=== PATIENT | male | born 1945 | race Caucasian/White ===

== ENCOUNTER 2016-09-15 07:59 | Inpatient (IN) ==
--- NOTE | 2016-09-15 08:07 | Emergency Department Note ---
Disposition Clinical Impression: Hypoxia, Weakness generalized Disposition: Admitted As Inpatient Condition: Undetermined Referrals: NO,PCP [Non-Partnered Physician] - Forms: ED Satisfaction Letter Time of Disposition: 10:51 SOB HPI - General Chief Complaint: ED Shortness of Breath/Dyspnea Stated Complaint: ABHI Time Seen by Provider: 09/15/16 08:01 Source: EMS Mode of arrival: EMS Limitations: altered mental status (baseline ) Nursing Notes Reviewed: Yes Vital Signs Reviewed: Yes - History of Present Illness 71-year-old male with history of diabetes, hypertension, bipolar disorder with baseline altered mental status arrives to [facility] emergency department from shelter with concern for low oxygen level. EMS arrived and noted that his O2 saturation was 90% on room air. The patient is unable to communicate with any complaints. He is well-appearing but arrives to the emergency department with an O2 sat of 91% on room air. The patient does have a mild swelling in his right lower extremity area and his lungs are clear to auscultation. The patient does have a colostomy that is on the left side of his abdomen. Nontender abdomen on palpation. Patient was recently discharged from the hospital one day ago for concern for elevated lactic acid and anemia. Unknown source of elevated lactic acid. Pt Subjective Complaint: shortness of breath Onset (ago): unknown Severity: mild Consistency/Duration: constant Improves with: oxygen Worsens with: nothing Known history of: diabetes Associated symptoms: Reports: denies other symptoms Treatment prior to arrival: oxygen Cough present: No Sputum production: No - Related Data Home Medications Medication Instructions Recorded Confirmed Acetaminophen [Tylenol] 650 mg PO Q4HR PRN 04/03/15 09/13/16 Alendronate Sodium [Fosamax] 70 mg PO TH 04/03/15 09/13/16 Atorvastatin [Lipitor] 40 mg PO HS 04/03/15 09/13/16 Calcium Carbonate/Vitamin D2 1 each PO DAILY 04/03/15 09/13/16 [Oyster Shell Calcium-Vit D Tab] Cholecalciferol (Vitamin D3) 1,000 unit PO DAILY 04/03/15 09/13/16 [Vitamin D3] Docusate Sodium [Colace] 200 mg PO BID 04/03/15 09/13/16 FLUoxetine HCl [Prozac] 20 mg PO DAILY 04/03/15 09/13/16 Folic Acid 1 mg PO DAILY 04/03/15 09/13/16 Furosemide [Lasix] 40 mg PO DAILY 04/03/15 09/13/16 Gemfibrozil [Lopid] 600 mg PO BID 04/03/15 09/13/16 Lisinopril [Zestril] 10 mg PO DAILY 04/03/15 09/13/16 Magnesium Hydroxide [Milk of 30 ml PO DAILY PRN 04/03/15 09/13/16 Magnesia] Metformin HCl [Glucophage] 1,000 mg PO BID 04/03/15 09/13/16 Polyethylene Glycol 3350 [MiraLAX 15 gm PO BID PRN #0 04/03/15 09/13/16 bowel prep] carBAMazepine [Tegretol] 400 mg PO HS 04/03/15 09/13/16 clonazePAM [Klonopin] 0.5 mg PO BID 04/03/15 09/13/16 Albuterol Neb [Proventil Neb] 2.5 mg IH Q4H PRN 09/22/15 09/13/16 Mylanta 30 ml PO Q4H PRN 09/22/15 09/13/16 [place]-3 Fatty Acids/Fish Oil 1 each PO BID 09/22/15 09/13/16 [[place]-3 Fish Oil 1,000 mg Sfgl] carBAMazepine [Tegretol] 200 mg PO QAM 09/22/15 09/13/16 Cariprazine HCl [Vraylar] 1.5 mg PO 09/13/16 Previous Rx's Medication Instructions Recorded Aspirin 81 mg PO Q48H #30 tab.chew 09/14/16 Allergies Allergy/AdvReac Type Severity Reaction Status Date / Time No Known Allergies Allergy Verified 09/22/15 09:12 Limitations: ROS unobtainable due to patients medical condition Past Medical History - Past Medical History Attestation: Yes The following information was validated with the patient. Source: old records reviewed Medical history: Reports: asthma, coronary artery disease, diabetes, myocardial infarction, osteoporosis, other Surgical history: Reports: colostomy Psychiatric history: Reports: anxiety, bipolar, other - Social History Smoking Status: Never smoker Smokeless Tobacco Status: No Alcohol use: Reports: none Drug use: Reports: none Physical Exam - General Limitations: no limitations, altered mental status (Baseline) General appearance: alert, in no apparent distress - Head Head exam: atraumatic, normocephalic, normal inspection - Neck Neck exam: Present: normal inspection, full ROM, trachea midline - Chest Chest inspection: Present: normal inspection, symmetric chest wall rise - Respiratory Respiratory exam: Present: normal lung sounds bilaterally - Cardiovascular Cardiovascular exam: Present: regular rate, normal rhythm, normal heart sounds - Abdominal Exam Abdominal exam: Present: soft, Non-Tender, other (Colostomy). Absent: tenderness, distention, guarding, rebound, rigidity - Extremities Exam Extremities exam: Present: full ROM, other (Mild swelling of RLE with change in skin color over calf) - Neurological Exam Neurological exam: Present: alert - Skin Skin exam: Present: warm, dry, intact, normal color Course - Reevaluation(s) Reevaluation #1: Patient's Doppler was negative for DVT and right lower extremity. Patient d- dimer was elevated. Given elevated d-dimer combined with hypoxia, we will perform CTA of the patient's chest. Patient's labs are otherwise unremarkable. Remains on oxygen with an O2 saturation of 96% on 2 L nasal cannula. He is resting comfortably and is otherwise acting at baseline. Time: 09:33 Vital Signs Temperature 98.2 F 09/15/16 08:03 Pulse Rate 55 09/15/16 08:03 Respiratory Rate 20 09/15/16 08:03 Blood Pressure 133/84 09/15/16 08:03 O2 Sat by Pulse Oximetry 92 09/15/16 08:03 Temperature 98.2 F 09/15/16 08:03 Pulse Rate 53 09/15/16 10:08 Respiratory Rate 20 09/15/16 10:08 Blood Pressure 140/80 09/15/16 10:08 O2 Sat by Pulse Oximetry 94 09/15/16 10:08 Oxygen Delivery Oxygen Delivery Nasal Cannula Shortness of Breath/Dyspnea - [facility] Narrative Medical decision making narrative: I examined this patient and my medical decision-making was reviewed with the Resident Physician. I agree with the documented findings, disposition and treatment plan as described except to the extent set forth below. Patient seen and evaluated on arrival with EMS and Dr. Ramos, I agree with his evaluation and management plan, supervised the care of the patient's stay. Patient was just discharged from the hospital yesterday. He had low saturations and was more tired than usual per half-way staff. He himself cannot give history due to his baseline mental status. He does have low saturations. Looks a he has had some anemia. And he had a workup appears to be for sepsis. Repeat labs and reassess. He may need readmission. He is not toxic at this point and is interactive but is unable to give us any history. According to medics and the charting this is his baseline. Chest X-Ray 09/15/16 08:01 IMPRESSION: No acute cardiopulmonary disease. D/ / Yuan Burnett MD / Yuan Burnett MD Interpreting Provider: Yuan Burnett MD 0856 hrs. Patient's d-dimer is elevated, his creatinine is normal, organomegaly and get a CTA of his chest. We will give him fluids. 1040: Patient's CT scan of the chest demonstrates no PE, but there is some right lower lobe effusion and atelectasis. Given the patient's hypoxia, With his malaise and his difficulty to assess at his baseline, we will admit the patient to the hospital for further workup and care. BNP was added to trend. No other obvious abnormalities noted. Patient is resting comfortably on 2 L nasal cannula with an O2 saturation of 96%. Accepted by Dr. Love. 1100 hrs., patient's critical care time excluding separately billable procedures is 30 minutes. - Medical Records Medical records reviewed: Yes I reviewed the patient's medical records. - Lab Data Lab results reviewed: Yes I reviewed the patient's lab results. Result diagrams: 09/15/16 08:17 09/15/16 08:17 Lab Results 09/15/16 09/15/16 09/15/16 Range/Units 08:17 08:17 08:17 WBC 7.7 (4.3-11.1) K/mcL RBC 4.22 (4.19-5.50) M/mcL Hgb 12.7 L (12.9-16.9) g/dL Hct 37.7 (37.5-50.1) % MCV 89.3 (83.0-100.0) fL MCH 30.1 (28.0-33.3) pg MCHC 33.7 (31.6-35.5) g/dL RDW 14.6 H (11.5-14.5) % Plt Count 154 (140-400) K/mcL MPV 10.0 (9.4-12.4) fL Immature Gran % 0.6 (0-4) % Seg Neutrophils % 67.8 % Lymphocytes % 21.2 % Monocytes % 9.5 % Eosinophils % 0.5 % Basophils % 0.4 % Neutrophils # 5.2 (1.6-8.9) K/mcL Lymphocytes # 1.6 (0.6-4.6) K/mcL Monocytes # 0.7 (0.0-1.3) K/mcL Eosinophils # 0.0 (0.0-0.6) K/mcL Basophils # 0.0 (0.0-0.2) K/mcL D-Dimer 1031 H (0-500) ng/mLFEU Sodium 132 L (136-145) mEq/L Potassium 4.7 H (3.5-4.5) mEq/L Chloride 99 (98-109) mEq/L Carbon Dioxide 26 (19-29) mEq/L BUN 20 (8-26) mg/dL Creatinine 0.94 (0.72-1.25) mg/dL Est GFR ( Amer) > 60 (> 60) Est GFR (Non-Af Amer) > 60 (> 60) BUN/Creatinine Ratio 21 (6-26) Glucose 128 H (70-99) mg/dL Calculated Osmolality 278 L (280-300) Lactic Acid (0.5-2.2) mmol/L Calcium 9.2 (8.6-10.8) mg/dL Total Bilirubin 0.4 (0.2-1.2) mg/dL AST 22 (5-34) Units/L ALT 21 (0-55) Units/L Alkaline Phosphatase 46 (38-126) Units/L Troponin I (0-0.03) ng/mL Serum Total Protein 7.5 (6.0-8.3) g/dL Albumin 3.8 (3.5-5.0) g/dL Globulin 3.7 H (2.4-3.5) g/dL Albumin/Globulin Ratio 1.0 L (1.1-2.2) 09/15/16 09/15/16 Range/Units 08:17 08:17 WBC (4.3-11.1) K/mcL RBC (4.19-5.50) M/mcL Hgb (12.9-16.9) g/dL Hct (37.5-50.1) % MCV (83.0-100.0) fL MCH (28.0-33.3) pg MCHC (31.6-35.5) g/dL RDW (11.5-14.5) % Plt Count (140-400) K/mcL MPV (9.4-12.4) fL Immature Gran % (0-4) % Seg Neutrophils % % Lymphocytes % % Monocytes % % Eosinophils % % Basophils % % Neutrophils # (1.6-8.9) K/mcL Lymphocytes # (0.6-4.6) K/mcL Monocytes # (0.0-1.3) K/mcL Eosinophils # (0.0-0.6) K/mcL Basophils # (0.0-0.2) K/mcL D-Dimer (0-500) ng/mLFEU Sodium (136-145) mEq/L Potassium (3.5-4.5) mEq/L Chloride (98-109) mEq/L Carbon Dioxide (19-29) mEq/L BUN (8-26) mg/dL Creatinine (0.72-1.25) mg/dL Est GFR ( Amer) (> 60) Est GFR (Non-Af Amer) (> 60) BUN/Creatinine Ratio (6-26) Glucose (70-99) mg/dL Calculated Osmolality (280-300) Lactic Acid 2.0 (0.5-2.2) mmol/L Calcium (8.6-10.8) mg/dL Total Bilirubin (0.2-1.2) mg/dL AST (5-34) Units/L ALT (0-55) Units/L Alkaline Phosphatase (38-126) Units/L Troponin I 0.00 (0-0.03) ng/mL Serum Total Protein (6.0-8.3) g/dL Albumin (3.5-5.0) g/dL Globulin (2.4-3.5) g/dL Albumin/Globulin Ratio (1.1-2.2) - Radiology Data Radiology results reviewed: Yes I reviewed the patient's radiology results. - EKG Data EKG attestation: Yes I reviewed and interpreted this EKG. EKG results narrative: Heart rate 52 bpm. ND interval 199 ms. QTc 42 ms. Normal axis. Sinus bradycardia. No ST elevation or ST depression noted. EKG otherwise similar in appearance to EKG from 09/13/2016. No acute changes noted.
[2016-09-15 08:36] LABS: Basophils % 0.4 %; Eosinophils % 0.5 %; Hematocrit 37.7 % (37.5-50.1); Hemoglobin 12.7 g/dL (12.9-16.9); Immature Granulocytes % 0.6 % (0-4); Lymphocytes # 1.6 K/mcL (0.6-4.6); Lymphocytes % 21.2 %; Mean Corpuscular HGB Conc 33.7 g/dL (31.6-35.5); Mean Corpuscular Hemoglobin 30.1 pg (28.0-33.3); Mean Corpuscular Volume 89.3 fL (83.0-100.0); Monocytes # 0.7 K/mcL (0.0-1.3); Monocytes % 9.5 %; Neutrophils # 5.2 K/mcL (1.6-8.9); Platelet Count 154 K/mcL (140-400); Red Blood Count 4.22 M/mcL (4.19-5.50); Red Cell Distribution Width 14.6 % (11.5-14.5); Segmented Neutrophils % 67.8 %
[2016-09-15 08:37] LABS: Alanine Aminotransferase 21 Units/L (0-55); Albumin 3.8 g/dL (3.5-5.0); Alkaline Phosphatase 46 Units/L (38-126); Aspartate Amino Transferase 22 Units/L (5-34); BUN/Creatinine Ratio 21 (6-26); Bilirubin,Total 0.4 mg/dL (0.2-1.2); Blood Urea Nitrogen 20 mg/dL (8-26); Calcium 9.2 mg/dL (8.6-10.8); Carbon Dioxide 26 mEq/L (19-29); Chloride 99 mEq/L (98-109); Globulin 3.7 g/dL (2.4-3.5); Glucose 128 mg/dL (70-99); Osmolality,Calculated 278 (280-300); Potassium 4.7 mEq/L (3.5-4.5); Sodium 132 mEq/L (136-145); Total Protein 7.5 g/dL (6.0-8.3); eGFR For African Americans > 60 (> 60); eGFR For Non-African Americans > 60 (> 60)
[2016-09-15] MEDS ORDERED: 0.9 % Sodium Chloride 1,000 ML IVC ONE (09:01)
[2016-09-15] MEDS ORDERED: Naloxone 0.4 MG/ML INJ IVP PRN (11:22)
--- NOTE | 2016-09-15 11:24 | Event Note ---
Date of Encounter: 09/15/16 Time of Encounter: 11:22 1. Hypoxia is likely secondary to acute diastolic CHF exacerbation with evidence of right small pleural effusion *Lasix 40 mg IV twice a day, strict I's and O's, daily weight Check echocardiogram 2. Diabetes type 2 not insulin-dependent, continue with insulin sliding scale 3. Bipolar disorder 4. Hyperlipidemia The patient will be admitted for observation. Omeprazole for GI prophylaxis and subcutaneous heparin for DVT prophylaxis. Full code. Time spent on this admission 40 minutes. H&P to be written by MELI Braden High risk due to hypoxia
[2016-09-15] MEDS ORDERED: Furosemide 40 MG/4 ML VIAL IVP ONE (11:26)
[2016-09-15] MEDS ORDERED: *HR* Dextrose 50 % in Water (Syg) 50 ML SYRINGE IVP PRN (11:27)
[2016-09-15] MEDS ORDERED: D5% in Water 1,000 ML IVC PRN (11:27)
[2016-09-15] MEDS ORDERED: Dextrose Gel 15 GM PO PRN ×2 (11:27)
[2016-09-15] MEDS ORDERED: Albuterol 2.5 MG/3 ML NEBULIZER IH PRN (11:29)
--- NOTE | 2016-09-15 11:36 | Internal Med History&Physical ---
<Miguelina Braden - Last Filed: 09/15/16 12:01> Date of Encounter: 09/15/16 Time of Encounter: 11:33 Assessment and Plan (1) Acute and chronic respiratory failure ([id number]) Current visit: Yes Status: Acute 1 patient SPO2 90 91% on room air, hypoxia most likely related to acute diastolic heart failure. He does have a right small pleural effusion on CTA 2 continue with oxygen titrated to maintain SPO2 greater than 92% 3 bronchodilators as needed 4 we will diurese the patient Qualifiers: Respiratory failure complication: hypoxia Qualified Code(s): J96.21 - Acute and chronic respiratory failure with hypoxia (2) CHF (congestive heart failure) Current visit: Yes Status: Acute 1 patient with history of diastolic failure with last echo dated 03/2015 showed EF 55% with moderate diastolic dysfunction. He has hypoxic CT reveals a right lower lobe pleural effusion he is presently on 40 mg Lasix daily. We will increase Lasix dosage to 40 mg IV twice a day 2 obtain cardiac echo 3 monitor intake and output daily weights 4. Low sodium diet 5 continuous cardiac monitoring Qualifiers: Congestive heart failure type: diastolic Congestive heart failure chronicity: acute on chronic Qualified Code(s): I50.33 - Acute on chronic diastolic (congestive) heart failure (3) Diabetes mellitus Current visit: No Status: Chronic 1 patient is presently on metformin orally. 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 Lubin is a 71 year old male past medical history of bipolar anxiety OCD history of CO coronary artery disease hypertension diverticulitis with resection of colon colostomy diabetes type 2. Apparently the patient was admitted on 09/13/16 at [facility] due to bradycardia and elevated lactate. Patient's Toprol was held his bradycardia improved as well as his lactate and he was discharged yesterday. Patient resides in a group called staff were concerned for low oxygen levels and he was sent to the ER for evaluation. Patient is cognitively disabled and is unable to communicate any complaints. According to ER records patient did not appear to be in any respiratory distress on arrival his O2 sats ration was 91% on room air he did have some mild lower extremity swelling in his right leg. Lab work was completed which did not show any leukocytosis his lactate was 2 per hour was 0 d-dimer was 1031 chest x-ray was clear. CTA was completed which did reveal trace right pleural effusion with dependent atelectasis in his right lower lobe. Patient was admitted for further workup and evaluation. Presently patient is not appear to be in any respiratory distress difficult to assess due to cognition. His lung sounds are clear he does have a moist nonproductive cough. Heart sounds are regular S1-S2 with no rubs, discussed murmurs noted. He does have some slight pedal edema to his lower extremities abdomen is soft nontender he does have a left colostomy which stoma is beefy red intact. Ba patient is removing his oxygen sats dropped down to 86 on room air. Back on 2 L oxygen 94% on room air. Breast vitals are stable. I reviewed this case with Dr. Love who agrees with plan. Past Med Surg Social Fam HX - Past Medical History Medical history: asthma, coronary artery disease, diabetes, myocardial infarction, osteoporosis, other Psychiatric history: anxiety, bipolar, other - Past Surgical History Surgical History: colostomy - Social History Smoking Status: Never smoker Smokeless Tobacco Status: No Alcohol use: none Drug use: none - Additional Family History Additional family history: Unable to review due to patient's cognition level Internal Medicine - H&P: Meds Acetaminophen [Tylenol] 650 mg PO Q4HR PRN 04/03/15 [History] Alendronate Sodium [Fosamax] 70 mg PO TH 04/03/15 [History] Atorvastatin [Lipitor] 40 mg PO HS 04/03/15 [History] Calcium Carbonate/Vitamin D2 [[place] Calcium-Vit D Tab] 1 tab PO DAILY 02/04 [History] Cholecalciferol (Vitamin D3) [Vitamin D3] 1,000 unit PO DAILY 04/03/15 [History] Docusate Sodium [Colace] 200 mg PO BID 04/03/15 [History] FLUoxetine HCl [Prozac] 20 mg PO DAILY 04/03/15 [History] Folic Acid 1 mg PO DAILY 04/03/15 [History] Furosemide [Lasix] 40 mg PO DAILY 04/03/15 [History] Gemfibrozil [Lopid] 600 mg PO BID 04/03/15 [History] Lisinopril [Zestril] 10 mg PO DAILY 04/03/15 [History] Magnesium Hydroxide [Milk of Magnesia] 30 ml PO DAILY PRN 04/03/15 [History] Metformin HCl [Glucophage] 1,000 mg PO BID 04/03/15 [History] Polyethylene Glycol 3350 [MiraLAX bowel prep] 15 gm PO BID PRN #0 04/03/15 [ History] carBAMazepine [Tegretol] 400 mg PO HS 04/03/15 [History] clonazePAM [Klonopin] 0.5 mg PO BID 04/03/15 [History] Albuterol Neb [Proventil Neb] 2.5 mg IH Q4H PRN 09/22/15 [History] Mag Hydrox/Al Hydrox/Simeth [Adv Antacid-[place] Liquid] 30 ml PO Q4H PRN #0 [History] [place]-3 Fatty Acids/Fish Oil [[place]-3 Fish Oil 1,000 mg Sfgl] 1,000 mg PO BID [History] carBAMazepine [Tegretol] 200 mg PO QAM 09/22/15 [History] Cariprazine HCl [Vraylar] 1.5 mg PO HS 09/13/16 [History] Aspirin 81 mg PO DAILY 09/15/16 [History] Ibuprofen [Motrin] 400 mg PO Q4HR PRN 09/15/16 [History] Loperamide [Imodium] 4 mg PO AD PRN 09/15/16 [History] Metoprolol XL (24 HR) Succ [Toprol XL] 25 mg PO DAILY 09/15/16 [History] Allergies No Known Allergies Allergy (Verified 09/22/15 09:12) ROS unobtainable: due to mental status All Systems PM: A 10-system review of systems was performed and is negative for pertinent findings except as documented above in the HPI. - Constitutional Vitals: Temp Pulse Resp BP Pulse Ox 98.2 F 52 20 138/87 93 09/15/16 08:03 09/15/16 11:13 09/15/16 11:22 09/15/16 11:22 09/15/16 11:13 General appearance: Present: cooperative - Head Head exam: Present: atraumatic, normocephalic - Eye Eye exam: Present: PERRL, conjuntiva pink, sclera anicteric Pupils: Present: PERRL - Neck Neck exam general surgery: Present: supple, trachea midline. Absent: lymphadenopathy - Respiratory Respiratory exam: Present: CTAB. Absent: accessory muscle use, rales, rhonchi, wheezes - Cardiovascular Cardiovascular exam: Present: RRR, +S1, +S2. Absent: diastolic murmur, gallop, rubs, systolic murmur - GI/Abdominal GI/Abdominal exam: Present: normal bowel sounds, soft, no peritoneal signs. Absent: distended, tenderness Additional comments: Colostomy intact - Extremities Exam Extremities exam: Present: pedal edema, warm, radial pulses palpable and symetrical. Absent: calf tenderness, cyanotic - Neurological Exam Neurological exam: Absent: pronater drift, facial droop, speech deficit Additional comments: Unable to complete neuro exam due to limited cognition unable to follow commands - Skin Skin exam: Present: dry, intact Internal Med - H&P Results - Labs CBC & Chem 7: 09/15/16 08:17 09/15/16 08:17 - EKG Data EKG shows normal: sinus rhythm Rate: bradycardia - EKG Data When compared to previous EKG: there is no significant change - Diagnostic Studies Other Images Additional comments: Chest X-Ray 09/15/16 08:01 IMPRESSION: No acute cardiopulmonary disease. D/ / Yuan Burnett MD / Yuan Burnett MD Interpreting Provider: Yuan Burnett MD Chest CTA 09/15/16 09:01 IMPRESSION: 1. No evidence of pulmonary embolus. 2. Trace right pleural effusion with dependent atelectasis of the right lower lobe. 3. Mild cardiomegaly. 4. Evidence of prior granulomatous disease. D/ 09/15/2016 10:32:24 Mario Suazo MD / Sapna Villatoro Interpreting Provider: Mario Suazo MD <[email or web address] philippe - Last Filed: 09/15/16 12:06> Date of Encounter: 09/15/16 Internal Medicine - H&P: HPI History of present illness: Mr. Lubin is a 71 year old male All Systems PM: A 10-system review of systems was performed and is negative for pertinent findings except as documented above in the HPI. - Constitutional Vitals: Temp Pulse Resp BP Pulse Ox 97.8 F 55 17 180/86 98 09/15/16 11:51 09/15/16 11:51 09/15/16 11:51 09/15/16 11:51 09/15/16 11:51 Internal Med - H&P Results - Labs CBC & Chem 7: 09/15/16 08:17 09/15/16 08:17 - Attending Attestation 1. Hypoxia is likely secondary to acute diastolic CHF exacerbation with evidence of right small pleural effusion *Lasix 40 mg IV twice a day, strict I's and O's, daily weight Check echocardiogram 2. Diabetes type 2 not insulin-dependent, continue with insulin sliding scale 3. Bipolar disorder 4. Hyperlipidemia The patient will be admitted for observation. Omeprazole for GI prophylaxis and subcutaneous heparin for DVT prophylaxis. Full code. Time spent on this admission 40 minutes. H&P to be written by AUTOMOTIVE SERVICE CONSULTANT Miguelina Braden High risk due to hypoxia For this encounter, I have reviewed the AUTOMOTIVE SERVICE CONSULTANT or PA documentation, treatment plan, and medical decision making; and I have had face to face time with this patient.
[2016-09-15] MEDS ORDERED: Acetaminophen 325 MG TABLET PO PRN (12:16)
[2016-09-15] MEDS: Insulin LISPRO 300 UNITS/3 ML VIAL SQ SCH ×3 (13:03→22:50)
--- NOTE | 2016-09-15 14:43 | Electrocardiograph Report ---
[address] [address] Test Date: 2016-09-15 Pat Name: Gaurav Lubin Department: 103 Room: 3B Gender: M Multimedia Coordinator: NADIA : 1945 Requested By: Jl Staley Order Number: [id number] Reading MD: Jimi Calix MD Measurements Intervals [place] Rate: 52 P: 23 NH: 199 QRS: -22 QRSD: 101 T: -6 QT: 421 QTc: 402 Interpretive Statements SINUS BRADYCARDIA WITH MARKED SINUS ARRHYTHMIA BORDERLINE LEFT AXIS DEVIATION INCOMPLETE RIGHT BUNDLE BRANCH BLOCK BASELINE ARTIFACT Electronically Signed On 09-15-2016 14:42:21 EDT by Jimi Calix MD
--- NOTE | 2016-09-15 15:06 | Venous Imaging Report ---
LE Venous Duplex Patient Name:Gaurav Lubin Order Number:[id number] Procedure Date:09/15/2016 Date:1945ge:71 yrs Gender:Male Location:[facility] ED Room #: ER 21 Study Abroad Advisor:Agnes Brown RDCS, RVT Referring MD:Jl Staley DO cable splicing technician:Edelmira Brennan MD Reading MD:Ramsey Epstein MD , FACS Primary Indications:Edema Secondary Indications: Risk Factors Yes/No Anticoagulants No Hx of DVT Unknown Hx of Chemotherapy Unknown Recent Surgery No Impressions: Right lower extremity: normal superficial and deep exam. Left lower extremity: normal contralateral exam. Recommendations: After imaging the patient returned to their room. Test completed on 09/15/2016 at 9:08:34 am. Critical findings reported to Dr. Staley by phone at 9:30:49 am on 09/15/2016 by Agnes Brown RDCS, RVT. Lower Extremity Venous Duplex Side Vein Compress Spontaneous Flow Augment Diameter (cm) Depth (cm) Right Distal Iliac Normal Yes Phasic Yes Right Common Femoral Normal Yes Phasic Yes Right Superficial Femoral Normal Yes Phasic Yes Right Popliteal Normal Yes Phasic Yes Right Posterior Tibial Normal Yes Phasic Yes Right Peroneal Normal Yes Phasic Yes Right Great Saphenous Normal Yes Phasic Yes Right Lesser Saphenous Normal Yes Phasic Yes Left Common Femoral Normal Yes Phasic Yes Updated by Ramsey Epstein MD, FACS on 09/15/2016 3:02:48 PM Ramsey Epstein MD electronically signed on 09/15/2016 3:03:05 PM with status of Final
[2016-09-15] MEDS: carBAMazepine 200 MG TABLET PO SCH (20:15)
[2016-09-15] MEDS: clonazePAM 0.5 MG TABLET PO SCH (20:16)
[2016-09-15] MEDS: (Cariprazine Hcl [Vraylar] 1.5 MG) PO SCH (20:23)
[2016-09-15] MEDS: OMEGA PO SCH (20:23)
[2016-09-15] MEDS: FATTY ACIDS PO SCH (20:23)
[2016-09-15] MEDS: FISH OIL PO SCH (20:23)
[2016-09-16] MEDS: *HR* Enoxaparin 40 MG/0.4 ML SYRINGE SQ SCH (05:48)
[2016-09-16 06:51] LABS: Basophils % 0.5 %; Eosinophils # 0.1 K/mcL (0.0-0.6); Eosinophils % 0.8 %; Hematocrit 35.9 % (37.5-50.1); Hemoglobin 12.2 g/dL (12.9-16.9); Immature Granulocytes % 0.7 % (0-4); Lymphocytes # 2.2 K/mcL (0.6-4.6); Lymphocytes % 26.4 %; Mean Corpuscular Hemoglobin 30.3 pg (28.0-33.3); Mean Corpuscular Volume 89.1 fL (83.0-100.0); Mean Platelet Volume 10.2 fL (9.4-12.4); Monocytes # 1.1 K/mcL (0.0-1.3); Monocytes % 12.7 %; Neutrophils # 4.9 K/mcL (1.6-8.9); Platelet Count 139 K/mcL (140-400); Red Blood Count 4.03 M/mcL (4.19-5.50); Red Cell Distribution Width 14.6 % (11.5-14.5); Segmented Neutrophils % 58.9 %
[2016-09-16 07:02] LABS: BUN/Creatinine Ratio 24 (6-26); Blood Urea Nitrogen 22 mg/dL (8-26); Calcium 9.1 mg/dL (8.6-10.8); Carbon Dioxide 26 mEq/L (19-29); Chloride 100 mEq/L (98-109); Glucose 115 mg/dL (70-99); Magnesium 2.4 mg/dL (1.6-2.6); Osmolality,Calculated 282 (280-300); Potassium 4.3 mEq/L (3.5-4.5); Sodium 134 mEq/L (136-145); eGFR For African Americans > 60 (> 60); eGFR For Non-African Americans > 60 (> 60)
[2016-09-16] MEDS: Folic Acid 1 MG TABLET PO SCH (08:11)
[2016-09-16] MEDS: Cholecalciferol (D-3) 1,000 UNIT TABLET PO SCH (08:11)
[2016-09-16] MEDS: carBAMazepine 200 MG TABLET PO SCH ×2 (08:11→22:14)
[2016-09-16] MEDS: clonazePAM 0.5 MG TABLET PO SCH ×2 (08:11→22:11)
[2016-09-16] MEDS: FISH OIL PO SCH ×2 (08:12→22:15)
[2016-09-16] MEDS: OMEGA PO SCH ×2 (08:12→22:15)
[2016-09-16] MEDS: FATTY ACIDS PO SCH ×2 (08:12→22:15)
[2016-09-16] MEDS: FLUoxetine 20 MG CAPSULE PO SCH (08:12)
[2016-09-16] MEDS: Aspirin 81 MG TAB.CHEW PO SCH (08:12)
[2016-09-16] MEDS: Insulin LISPRO 300 UNITS/3 ML VIAL SQ SCH ×4 (08:12→22:17)
--- NOTE | 2016-09-16 11:59 | Internal Med Progress Note ---
Date of Encounter: 09/16/16 Time of Encounter: 09:10 - Assessment and plan (1) Cognitive disorder Current Visit: Yes Status: Chronic Assessment and plan: Fall precautions Verbal but incomprehensible Continue home meds (2) CHF (congestive heart failure) Current Visit: Yes Status: Acute Assessment and plan: Acute on chronic heart failure with preserved EF, with evidence of new small R pleural effusion Continue lasix IV Strict I/O Daily weights Monitor renal function Qualifiers: Congestive heart failure type: diastolic Congestive heart failure chronicity: acute on chronic Qualified Code(s): I50.33 - Acute on chronic diastolic (congestive) heart failure (3) Acute and chronic respiratory failure ([id number]) Current Visit: Yes Status: Acute Assessment and plan: Continue O2 May need requalification prior to discharge Qualifiers: Respiratory failure complication: hypoxia Qualified Code(s): J96.21 - Acute and chronic respiratory failure with hypoxia (4) Diabetes mellitus Current Visit: Yes Status: Chronic Assessment and plan: A1C 5.8% 08/2016 Controlled Continue current insulin regimen ADA diet FS ACHS Qualifiers: Diabetes mellitus type: type 2 Diabetes mellitus complication status: without complication Diabetes mellitus intermediate manager insulin use: without intermediate manager use Qualified Code(s): E11.9 - Type 2 diabetes mellitus without complications (5) DVT prophylaxis Current Visit: Yes Status: Acute Assessment and plan: LOvenox SQ (6) Bipolar 1 disorder Current Visit: No Status: Chronic Assessment and plan: Continue home meds - Subjective Interval history: Seen and evaluated at bedside Patient has CHFpEF, Chronic respiratory failure on home O2, DM, Cognitive dysfunction at baseline, bipolar disorder, s/p colostomy He is being managed for acute on chronic resp failure secondary to CHF exacerbation Patient is unable to voice a complain but he looked comfortable in the cardiac position He had received one dose of lasix at time of review Vitals are stable - Constitutional Vitals: Temp Pulse Resp BP Pulse Ox 98.3 F 70 15 148/88 91 09/16/16 11:11 09/16/16 11:11 09/16/16 11:11 09/16/16 11:11 09/16/16 11:11 General appearance: Present: cooperative, A&O X 1 - Head Head exam: Present: atraumatic, normocephalic - Eye Eye exam: Present: PERRL, conjuntiva pink, sclera anicteric Pupils: Present: PERRL - Neck Neck exam general surgery: Present: supple, trachea midline. Absent: lymphadenopathy - Respiratory Respiratory exam: Present: CTAB. Absent: accessory muscle use, rales, rhonchi, wheezes - Cardiovascular Cardiovascular exam: Present: RRR, +S1, +S2. Absent: diastolic murmur, gallop, rubs, systolic murmur - GI/Abdominal GI/Abdominal exam: Present: normal bowel sounds, soft, no peritoneal signs. Absent: distended, tenderness Additional comments: Colostomy bag filled with gas - Extremities Exam Extremities exam: Present: warm, radial pulses palpable and symetrical. Absent : calf tenderness, cyanotic, pedal edema - Neurological Exam Neurological exam: Present: alert, CN II-XII intact, no focal deficits. Absent : oriented X3, pronater drift, facial droop, speech deficit - Skin Skin exam: Present: dry, intact Internal Medicine: Result - Labs CBC & Chem 7: 09/16/16 06:24 09/16/16 06:24 Labs: Short CBC 09/16/16 Range/Units 06:24 WBC 8.3 (4.3-11.1) K/mcL Hgb 12.2 L (12.9-16.9) g/dL Hct 35.9 L (37.5-50.1) % Plt Count 139 L (140-400) K/mcL Neutrophils # 4.9 (1.6-8.9) K/mcL BMP 09/16/16 06:24 Sodium 134 L Potassium 4.3 Chloride 100 Carbon Dioxide 26 BUN 22 Creatinine 0.93 Glucose 115 H Calcium 9.1 Cardiac Enzymes 09/15/16 Range/Units 20:22 Troponin I 0.00 (0-0.03) ng/mL - ABG Interpretation ABG results: PT/INR, D-dimer D-Dimer 1031 ng/mLFEU (0-500) H 09/15/16 08:17 Consult Discharge Plan - Plan Referrals: Edelmira Brennan MD [Primary Care Provider] -
[2016-09-16] MEDS: Furosemide 40 MG TABLET PO SCH ×2 (12:37→17:36)
[2016-09-16] MEDS: (Cariprazine Hcl [Vraylar] 1.5 MG) PO SCH (22:17)
[2016-09-17 04:09] LABS: Basophils % 0.4 %; Eosinophils # 0.2 K/mcL (0.0-0.6); Eosinophils % 1.8 %; Hematocrit 38.5 % (37.5-50.1); Hemoglobin 12.8 g/dL (12.9-16.9); Immature Granulocytes % 0.6 % (0-4); Lymphocytes # 2.4 K/mcL (0.6-4.6); Mean Corpuscular HGB Conc 33.2 g/dL (31.6-35.5); Mean Corpuscular Hemoglobin 30.3 pg (28.0-33.3); Mean Platelet Volume 10.2 fL (9.4-12.4); Monocytes % 12.2 %; Neutrophils # 4.9 K/mcL (1.6-8.9); Platelet Count 153 K/mcL (140-400); Red Blood Count 4.23 M/mcL (4.19-5.50); Red Cell Distribution Width 14.8 % (11.5-14.5)
[2016-09-17 04:24] LABS: BUN/Creatinine Ratio 23 (6-26); Blood Urea Nitrogen 26 mg/dL (8-26); Calcium 8.9 mg/dL (8.6-10.8); Carbon Dioxide 27 mEq/L (19-29); Chloride 101 mEq/L (98-109); Glucose 126 mg/dL (70-99); Osmolality,Calculated 288 (280-300); Sodium 136 mEq/L (136-145); eGFR For African Americans > 60 (> 60); eGFR For Non-African Americans > 60 (> 60)
[2016-09-17] MEDS: *HR* Enoxaparin 40 MG/0.4 ML SYRINGE SQ SCH (05:58)
[2016-09-17] MEDS: Aspirin 81 MG TAB.CHEW PO SCH (08:29)
[2016-09-17] MEDS: Folic Acid 1 MG TABLET PO SCH (08:29)
[2016-09-17] MEDS: carBAMazepine 200 MG TABLET PO SCH (08:29)
[2016-09-17] MEDS: FLUoxetine 20 MG CAPSULE PO SCH (08:29)
[2016-09-17] MEDS: Furosemide 40 MG TABLET PO SCH (08:29)
[2016-09-17] MEDS: clonazePAM 0.5 MG TABLET PO SCH (08:29)
[2016-09-17] MEDS: Cholecalciferol (D-3) 1,000 UNIT TABLET PO SCH (08:29)
[2016-09-17] MEDS: FATTY ACIDS PO SCH (08:30)
[2016-09-17] MEDS: Insulin LISPRO 300 UNITS/3 ML VIAL SQ SCH ×2 (08:30→12:32)
[2016-09-17] MEDS: FISH OIL PO SCH (08:30)
[2016-09-17] MEDS: OMEGA PO SCH (08:30)
--- NOTE | 2016-09-17 12:07 | Discharge Summary ---
Date of Encounter: 09/17/16 Time of Encounter: 10:00 - Discharge Diagnosis (1) Cognitive disorder Priority: Secondary Status: Chronic (2) CHF (congestive heart failure) Priority: Primary Status: Acute Qualifiers: Congestive heart failure type: diastolic Congestive heart failure chronicity: acute on chronic Qualified Code(s): I50.33 - Acute on chronic diastolic (congestive) heart failure (3) Acute and chronic respiratory failure ([id number]) Priority: Primary Status: Acute Qualifiers: Respiratory failure complication: hypoxia Qualified Code(s): J96.21 - Acute and chronic respiratory failure with hypoxia (4) Diabetes mellitus Priority: Secondary Status: Chronic Qualifiers: Diabetes mellitus type: type 2 Diabetes mellitus complication status: without complication Diabetes mellitus intermodal customer service insulin use: without intermodal customer service use Qualified Code(s): E11.9 - Type 2 diabetes mellitus without complications (5) DVT prophylaxis Priority: Primary Status: Acute (6) Bipolar 1 disorder Priority: Secondary Status: Chronic - Discharge Medications Home Medications: Acetaminophen [Tylenol] 650 mg PO Q4HR PRN 04/03/15 [History] Alendronate Sodium [Fosamax] 70 mg PO TH 04/03/15 [History] Atorvastatin [Lipitor] 40 mg PO HS 04/03/15 [History] Calcium Carbonate/Vitamin D2 [Oyster Shell Calcium-Vit D Tab] 1 tab PO DAILY 02/04 [History] Cholecalciferol (Vitamin D3) [Vitamin D3] 1,000 unit PO DAILY 04/03/15 [History] Docusate Sodium [Colace] 200 mg PO BID 04/03/15 [History] FLUoxetine HCl [Prozac] 20 mg PO DAILY 04/03/15 [History] Folic Acid 1 mg PO DAILY 04/03/15 [History] Gemfibrozil [Lopid] 600 mg PO BID 04/03/15 [History] Lisinopril [Zestril] 10 mg PO DAILY 04/03/15 [History] Magnesium Hydroxide [Milk of Magnesia] 30 ml PO DAILY PRN 04/03/15 [History] Metformin HCl [Glucophage] 1,000 mg PO BID 04/03/15 [History] Polyethylene Glycol 3350 [MiraLAX bowel prep] 15 gm PO BID PRN #0 04/03/15 [ History] carBAMazepine [Tegretol] 400 mg PO HS 04/03/15 [History] clonazePAM [Klonopin] 0.5 mg PO BID 04/03/15 [History] Albuterol Neb [Proventil Neb] 2.5 mg IH Q4H PRN 09/22/15 [History] Mag Hydrox/Al Hydrox/Simeth [Adv Antacid-Antigas Liquid] 30 ml PO Q4H PRN #0 [History] [place]-3 Fatty Acids/Fish Oil [[place]-3 Fish Oil 1,000 mg Sfgl] 1,000 mg PO BID [History] carBAMazepine [Tegretol] 200 mg PO QAM 09/22/15 [History] Cariprazine HCl [Vraylar] 1.5 mg PO HS 09/13/16 [History] Aspirin 81 mg PO DAILY 09/15/16 [History] Loperamide [Imodium] 4 mg PO AD PRN 09/15/16 [History] Metoprolol XL (24 HR) Succ [Toprol Xl] 25 mg PO DAILY 09/15/16 [History] Albuterol Neb [Proventil Neb] 2.5 mg IH Q2H PRN inh 09/17/16 [Rx] Furosemide [Lasix] 60 mg PO DAILY #60 tab 09/17/16 [Rx] Allergies/Adverse Reactions: Allergies No Known Allergies Allergy (Verified 09/22/15 09:12) Date of admission: 09/15/16 15:20 Primary care physician: Edelmira Brennan Consults: 09/15/16 17:09 Consult to Occupational Therapy [CONS] Routine Comment: Evaluate, develop and implement POC Reason for Consult: weakness Consult to Physical Therapy [CONS] Routine Comment: Evaluate, develop and implement POC Reason for Consult: weakness Discharging clinician: Rio George Anticipated date of discharge: 09/17/16 - Patient Status Disposition: Transfer Other Condition: Fair Functional capacity at discharge: independent ambulation Overall status at discharge: patient is back to baseline - Discharge Instructions Follow Up With: Edelmira Brennan MD [Primary Care Provider] - - Diet and Activity Activity: resume usual activities as tolerated, wear oxygen at all times Diet: diabetic diet, low fat, low cholesterol, low salt diet Interval History: See below Hospital course: Mr. Lubin is a 71 year old male , He Has a past past medical history of bipolar disorder, anxiety, OCD, coronary artery disease, hypertension, status post colostomy, diabetes 2, chronic cognitive disorder. Patient was transferred to [facility] ER from his [facility] due to concern for low oxygen level. Throughout admission patient did not show any evidence of respiratory distress, however his oxygen saturation on room air has ranged between 90-91%. Patient also with evidence of mild lower extremity edema on admission, with chest CT showing no PE, he had trace right pleural effusion and dependent atelectasis. Patient remained afebrile, with no leukocytosis, he appeared not to be in any form of respiratory distress possibly due to cognition. His chest was clear to auscultation. Heart sounds S1 and S2 and no murmurs. His LE edema has resolved , DVT was ruled out He was admitted and managed for acute hypoxic respiratory failure secondary to CHF exacerbation Patient is seen and evaluated this morning at bedside in clinically stable state. He has been adequately diuretics with a negative output greater than 2 L, he has lost weight of about 3 kg since admission. Patient is stable to be discharged back to the facility, on Lasix 60 mg by mouth daily. Prior to admission patient was taking 40 mg daily. Patient was qualified for home oxygen, and he qualified based on desaturation on ambulation. Patient is stable to be discharged to the fpc once oxygen has been delivered. - Time Spent with Patient Total time spent providing and/or coordinating discharge services: Greater than 30 minutes - Constitutional Vitals: Temp Pulse Resp BP Pulse Ox 98.0 F 70 15 112/63 96 09/17/16 12:03 09/17/16 12:03 09/17/16 12:03 09/17/16 12:03 09/17/16 12:03 General appearance: Present: cooperative, A&O X 1 - Head Head exam: Present: atraumatic, normocephalic - Eye Eye exam: Present: PERRL, conjuntiva pink, sclera anicteric Pupils: Present: PERRL - Neck Neck exam general surgery: Present: supple, trachea midline. Absent: lymphadenopathy - Respiratory Respiratory exam: Present: CTAB. Absent: accessory muscle use, rales, rhonchi, wheezes - Cardiovascular Cardiovascular exam: Present: RRR, +S1, +S2. Absent: diastolic murmur, gallop, rubs, systolic murmur - GI/Abdominal GI/Abdominal exam: Present: normal bowel sounds, soft, no peritoneal signs. Absent: distended, tenderness - Extremities Exam Extremities exam: Present: warm, radial pulses palpable and symetrical. Absent : calf tenderness, cyanotic, pedal edema - Neurological Exam Neurological exam: Present: alert, CN II-XII intact, no focal deficits. Absent : pronater drift, facial droop, speech deficit - Skin Skin exam: Present: dry, intact
[2016-09-17 16:24] VITALS: BP 102/66
== END 2016-09-17 17:19 | disposition other institution (70) | DRG 291 ==
LOC: 3BNU 07:59 → EMEROO 07:59 → 3BNU 11:38
PROVIDERS: ADMIT Internal Medicine; ATTEND Nurse Practitioner Family

== ENCOUNTER 2016-09-20 07:02 | Inpatient (IN) ==
[2016-09-20] MEDS ORDERED: Ipratropium/Albuterol Neb 3 ML IH ONE (07:08)
[2016-09-20] MEDS ORDERED: methylPREDNISolone 125 MG/2 ML VIAL IVP ONE (07:08)
[2016-09-20] MEDS ORDERED: Furosemide 40 MG/4 ML VIAL IVP ONE (07:08)
--- NOTE | 2016-09-20 07:13 | Emergency Department Note ---
Disposition Clinical Impression: Hypoxia CHF (congestive heart failure) Qualifiers: Congestive heart failure type: unspecified congestive heart failure type Congestive heart failure chronicity: unspecified congestive heart failure chronicity Qualified Code(s): I50.9 - Heart failure, unspecified Pneumonia Qualifiers: Pneumonia type: due to unspecified organism Laterality: right Lung location: lower lobe of lung Qualified Code(s): J18.1 - Lobar pneumonia, unspecified organism Disposition: Admitted As Inpatient Condition: Good Forms: ED Satisfaction Letter Time of Disposition: 08:48 SOB HPI - General Chief Complaint: ED Shortness of Breath/Dyspnea Stated Complaint: ABHI Time Seen by Provider: 09/20/16 07:07 Source: EMS Mode of arrival: EMS Limitations: other Nursing Notes Reviewed: Yes Vital Signs Reviewed: Yes - History of Present Illness Patient presents emergency room from a long-term facility where he is in assisted living. Recently discharged from the hospital for shortness of breath. Patient presents here today with acute shortness of breath according to him. He also is unable to answer questions appropriately. History is from the EMS transport Pt Subjective Complaint: shortness of breath Onset (ago): [employer] Context: recent illness Severity: moderate Consistency/Duration: constant Improves with: oxygen, upright position Worsens with: lying flat, exertion Known history of: congestive heart failure Associated symptoms: Reports: denies other symptoms Treatment prior to arrival: oxygen Cough present: Yes Cough Description: Voluntary, Non-Productive Cough Frequency: Intermittent Sputum production: No Sputum Amount: Scant Sputum Color: Clear - Related Data Home oxygen amount: 2 liters Home Medications Medication Instructions Recorded Confirmed Acetaminophen [Tylenol] 650 mg PO Q4HR PRN 04/03/15 09/15/16 Alendronate Sodium [Fosamax] 70 mg PO TH 04/03/15 09/15/16 Atorvastatin [Lipitor] 40 mg PO HS 04/03/15 09/15/16 Calcium Carbonate/Vitamin D2 1 tab PO DAILY 04/03/15 09/15/16 [Oyster Shell Calcium-Vit D Tab] Cholecalciferol (Vitamin D3) 1,000 unit PO DAILY 04/03/15 09/15/16 [Vitamin D3] Docusate Sodium [Colace] 200 mg PO BID 04/03/15 09/15/16 FLUoxetine HCl [Prozac] 20 mg PO DAILY 04/03/15 09/15/16 Folic Acid 1 mg PO DAILY 04/03/15 09/15/16 Gemfibrozil [Lopid] 600 mg PO BID 04/03/15 09/15/16 Lisinopril [Zestril] 10 mg PO DAILY 04/03/15 09/15/16 Magnesium Hydroxide [Milk of 30 ml PO DAILY PRN 04/03/15 09/15/16 Magnesia] Metformin HCl [Glucophage] 1,000 mg PO BID 04/03/15 09/15/16 Polyethylene Glycol 3350 [MiraLAX 15 gm PO BID PRN #0 04/03/15 09/15/16 bowel prep] carBAMazepine [Tegretol] 400 mg PO HS 04/03/15 09/15/16 clonazePAM [Klonopin] 0.5 mg PO BID 04/03/15 09/15/16 Albuterol Neb [Proventil Neb] 2.5 mg IH Q4H PRN 09/22/15 09/15/16 Mag Hydrox/Al Hydrox/Simeth [Adv 30 ml PO Q4H PRN #0 09/22/15 09/15/16 Antacid-Antigas Liquid] [place]-3 Fatty Acids/Fish Oil 1,000 mg PO BID 09/22/15 09/15/16 [[place]-3 Fish Oil 1,000 mg Sfgl] carBAMazepine [Tegretol] 200 mg PO QAM 09/22/15 09/15/16 Cariprazine HCl [Vraylar] 1.5 mg PO HS 09/13/16 09/15/16 Aspirin 81 mg PO DAILY 09/15/16 09/15/16 Loperamide [Imodium] 4 mg PO AD PRN 09/15/16 09/15/16 Metoprolol XL (24 HR) Succ [Toprol 25 mg PO DAILY 09/15/16 09/15/16 Xl] Previous Rx's Medication Instructions Recorded Furosemide [Lasix] 60 mg PO DAILY #90 tab 09/17/16 Allergies Allergy/AdvReac Type Severity Reaction Status Date / Time No Known Allergies Allergy Verified 09/22/15 09:12 All systems ED: reviewed and negative except as stated. Review of Systems: As Per HPI Constitutional: Denies: fever, chills Cardiovascular: Reports: dyspnea on exertion, orthopnea. Denies: chest pain, palpitations Respiratory: Reports: dyspnea. Denies: cough, wheezes, hemoptysis Gastrointestinal: Denies: abdominal pain, nausea Genitourinary: Denies: dysuria, frequency Musculoskeletal: Denies: back pain, neck pain Neurological: Denies: headache, weakness Past Medical History - Past Medical History Attestation: Yes The following information was validated with the patient. Source: patient Medical history: Reports: asthma, coronary artery disease, diabetes, myocardial infarction, osteoporosis, other Surgical history: Reports: colostomy Psychiatric history: Reports: anxiety, bipolar, other - Social History Smoking Status: Never smoker Smokeless Tobacco Status: No Alcohol use: Reports: none Drug use: Reports: none Physical Exam - General Limitations: other General appearance: alert, in no apparent distress - Head Head exam: atraumatic, normocephalic, normal inspection - Neck Neck exam: Present: normal inspection, full ROM, trachea midline - Chest Chest inspection: Present: normal inspection, symmetric chest wall rise. Absent : tenderness - Respiratory Respiratory exam: Present: normal lung sounds bilaterally. Absent: respiratory distress, wheezes - Cardiovascular Cardiovascular exam: Present: regular rate, normal rhythm. Absent: bradycardia - Abdominal Exam Abdominal exam: Present: soft, Non-Tender, normal bowel sounds. Absent: tenderness, distention, guarding, rebound, rigidity, diminished bowel sounds, Rodriguez's sign, Rovsing's sign, tenderness at McBurney's Point Course Course Narrative: Patient seen and examined the time of arrival by EMS. See history of present illness. 8-year-old male presents from assisted living facility where he was complaining of shortness of breath. EMS was called at that time. He was hypoxic. He was just discharged from the hospital on a oxygen concentrator secondary to CHF exacerbation and decreased pulse ox. Patient was not wearing the oxygen arrival is laying flat on the bed and had mild increased work of breathing. On arrival here patient is slightly altered. This is according to EMS his baseline. He does have cognitive impairment secondary to chronic medical issues. He was hypoxic on 86 on normal oxygen. Patient otherwise a physical exam and appear to be in distress. His head is atraumatic. Pupils are equal round reactive to light. There is no visible signs of trauma or injury. He moves all 4 extremities and attempts to follow commands but does have repetitive speech. There is no facial asymmetry at this time his vital signs are otherwise stable except for the hypoxia. Lungs are clear heart is regular but on EKG show sinus arrhythmia. This is consistent to previous EKGs. Abdomen soft nontender nondistended no guarding no rigidity patient is a left lower quadrant ostomy bag that appears to be functioning. Patient is concerning secondary to inability to convey full medical history CT imaging of the head chest x-ray labs including EKG and troponin ordered this time. BNP first dose of IV Lasix along with oxygen to be applied at this point. BiPAP will be held initially until patient declares himself as far as intervention required. Steroids and first dose of albuterol to be given here. Disposition will most likely be admission for failed outpatient treatment secondary to patient's cognitive ability. - Reevaluation(s) Reevaluation #1: Patient found to have right-sided infiltrate and possible left atelectasis or pneumonia. Consistent with hospital-acquired pneumonia this time secondary to his recent admission and completion care. Vancomycin and Zosyn given. White count is 20.5. Steroids fluids and albuterol treatments given. CT the head is negative. Admission process to be completed at this time Time: 08:35 Reevaluation #2: Patient discussed with the on-call hospitalist Dr. Love. We reviewed the presentation symptoms recent medical evaluation and admission. No other recommendations at this time. Antibiotics medications given. Time: 08:46 Vital Signs Temperature 99.7 F H 09/20/16 07:03 Pulse Rate 74 09/20/16 07:03 Respiratory Rate 20 09/20/16 07:03 Blood Pressure 129/79 09/20/16 07:03 O2 Sat by Pulse Oximetry 85 09/20/16 07:03 Temperature 99.7 F H 09/20/16 07:03 Pulse Rate 74 09/20/16 07:03 Respiratory Rate 20 09/20/16 07:03 Blood Pressure 129/79 09/20/16 07:03 O2 Sat by Pulse Oximetry 90 09/20/16 07:09 Oxygen Delivery Oxygen Delivery Nasal Cannula Shortness of Breath/Dyspnea - MDM Narrative Medical decision making narrative: congested heart failure, fluid overload, hypoxia - Medical Records Medical records reviewed: Yes I reviewed the patient's medical records. - Lab Data Lab results reviewed: Yes I reviewed the patient's lab results. - Radiology Data Radiology results reviewed: Yes I reviewed the patient's radiology results. CT imaging of the head is negative for acute pathology. Chest x-ray consistent with new progression of pneumonia or atelectasis - EKG Data EKG attestation: Yes I reviewed and interpreted this EKG. EKG shows normal: Reports: sinus rhythm Rate: Reports: normal Rhythm: Reports: NSR [place]/QRS: Reports: left axis deviation, RBBB When compared to previous EKG there are: no significant changes Interpretation: Reports: no acute changes, unchanged when compared to prior tracing (date) (09/15/16) Critical Care Time Critical Care Time: Yes Total Critical Care Time: 35 Attestation: Critical care performed: Time is exclusive of separately billable procedures. Time includes: direct patient care, patient reassessment, coordination of patient care, interpretation of data (laboratory data, radiology data, and respiratory data), review of patient's medical records, medical consultation and documentation of patient care. Procedures included in critical care time: Procedures excluded from critical care time:
[2016-09-20] MEDS ORDERED: Vancomycin 1,750 MG in D5% in Water 500 ML IVPB ONE (07:30)
[2016-09-20 07:31] LABS: Basophils % 0.1 %; Hematocrit 40.7 % (37.5-50.1); Hemoglobin 13.5 g/dL (12.9-16.9); Immature Granulocytes % 0.7 % (0-4); Lymphocytes # 1.2 K/mcL (0.6-4.6); Lymphocytes % 5.7 %; Mean Corpuscular HGB Conc 33.2 g/dL (31.6-35.5); Mean Corpuscular Hemoglobin 29.9 pg (28.0-33.3); Mean Platelet Volume 9.9 fL (9.4-12.4); Monocytes # 1.3 K/mcL (0.0-1.3); Monocytes % 6.3 %; Neutrophils # 17.9 K/mcL (1.6-8.9); Platelet Count 186 K/mcL (140-400); Red Blood Count 4.52 M/mcL (4.19-5.50); Red Cell Distribution Width 14.9 % (11.5-14.5); Segmented Neutrophils % 87.2 %
[2016-09-20 07:35] LABS: INR 1.4; Prothrombin Time 14.8 Seconds (9.4-12.1)
[2016-09-20 07:38] LABS: Activated Partial Thrombo Time 32.7 Seconds (26.0-36.0)
[2016-09-20 07:39] LABS: Bilirubin,Urine Negative (Negative); Blood,Urine Negative (Negative); Clarity,Urine Clear (Clear); Color,Urine Yellow (Yellow); Glucose,Urine (UA) Normal (Normal); Ketones,Urine Negative (Negative); Leukocyte Esterase,Urine Negative (Negative); Nitrite,Urine Negative (Negative); PH,Urine 5.5 pH Units (5.0-8.0); Protein,Urine Trace mg/dL (Neg-Trace); Specific Gravity,Urine 1.028 (1.010-1.025); Urobilinogen,Urine Normal (Normal)
[2016-09-20 07:41] LABS: Bacteria,Urine None Seen per hpf (None-Few); Hyaline Casts,Urine None Seen per lpf (None-Few); Squamous Epithelial Cell,Urine Few per lpf (None-Few); WBC,Urine 0-3 per hpf (0-3)
[2016-09-20 07:43] LABS: BUN/Creatinine Ratio 27 (6-26); Blood Urea Nitrogen 28 mg/dL (8-26); Calcium 9.6 mg/dL (8.6-10.8); Carbon Dioxide 24 mEq/L (19-29); Chloride 99 mEq/L (98-109); Glucose 171 mg/dL (70-99); Osmolality,Calculated 284 (280-300); Potassium 4.6 mEq/L (3.5-4.5); Sodium 132 mEq/L (136-145); eGFR For African Americans > 60 (> 60); eGFR For Non-African Americans > 60 (> 60)
[2016-09-20] MEDS ORDERED: Ondansetron 4 MG/2 ML VIAL IVP PRN (09:01)
[2016-09-20] MEDS ORDERED: Ketorolac 30 MG/ML VIAL IVP PRN (09:01)
[2016-09-20] MEDS ORDERED: Naloxone 0.4 MG/ML INJ IVP PRN (09:01)
[2016-09-20] MEDS ORDERED: *HR* Morphine 2 MG/ML SYRINGE IVP PRN (09:01)
--- NOTE | 2016-09-20 09:09 | Internal Med History&Physical ---
Date of Encounter: 09/20/16 Time of Encounter: 09:07 Assessment and Plan (1) Acute and chronic respiratory failure ([id number]) Current visit: No Status: Acute Acute on chronic hypoxic respiratory failure likely secondary to acute COPD exacerbation from healthcare associated pneumonia present upon admission and combination of acute diastolic CHF exacerbation Start cefepime and Levaquin, consider vancomycin if he becomes hypotensive Chest x-ray shows a right lower lobe infiltrate and pleural effusion Solu-Medrol, DuoNeb's, oxygen therapy, consider BiPAP Lasix IV, strict I's and O's and daily weight Speech pathology consult to evaluate possible aspiration Aspiration precautions Omeprazole for GI prophylaxis and subcutaneous heparin for DVT prophylaxis. The patient will be admitted as inpatient, expected to stay more than 2 midnights. Full code. Time spent on this admission 40 minutes. High risk due to respiratory failure Qualifiers: Respiratory failure complication: hypoxia Qualified Code(s): J96.21 - Acute and chronic respiratory failure with hypoxia (2) HCAP (healthcare-associated pneumonia) Current visit: Yes Status: Acute (3) CHF (congestive heart failure) Current visit: Yes Status: Acute Qualifiers: Congestive heart failure type: diastolic Congestive heart failure chronicity: acute on chronic Qualified Code(s): I50.33 - Acute on chronic diastolic (congestive) heart failure (4) Diabetes mellitus Current visit: No Status: Chronic Continue insulin sliding scale Qualifiers: Diabetes mellitus type: type 2 Diabetes mellitus complication status: without complication Diabetes mellitus fdc insulin use: without terminal make up operator use Qualified Code(s): E11.9 - Type 2 diabetes mellitus without complications (5) Cognitive disorder Current visit: No Status: Chronic Internal Medicine - H&P: HPI Chief complaint: Shortness of breath Admitted From: Emergency Dept History of present illness: Mr. Lubin is a 71 year old male with a past medical history of chronic respiratory failure, chronic cognitive disorder, right pleural effusion and diastolic CHF who was recently discharged from this hospital on 09/17/2016 where he was seen for diastolic CHF, during his hospitalization his dose of Lasix was increased from 40 60 mg daily. He was transferred back to the emergency room earlier today as he became hypoxic, his saturation of oxygen was 85% with blood cell count is 20.5 glucose 171 chest x-ray shows a new possible right lower lobe infiltrate and a persistent left pleural effusion. He was started on vancomycin and Zosyn at the emergency room. Patient is not able to provide any history due to cognitive disorder. Past Med Surg Social Fam HX - Past Medical History Medical history: asthma, CHF (Diastolic, chronic respiratory failure), coronary artery disease, diabetes (Not insulin-dependent), hyperlipidemia, myocardial infarction, osteoporosis, other (Chronic: Acute disorder, right pleural effusion , chronic respiratory failure, bipolar, osteopenia, COPD/STEMI, depression) Psychiatric history: anxiety, bipolar, other - Past Surgical History Surgical History: colostomy, other (Extensive abdominal surgery) - Social History Smoking Status: Never smoker Smokeless Tobacco Status: No Alcohol use: none Drug use: none - Additional Family History Additional family history: Unknown Internal Medicine - H&P: Meds Acetaminophen [Tylenol] 650 mg PO Q4HR PRN 04/03/15 [History] Alendronate Sodium [Fosamax] 70 mg PO TH 04/03/15 [History] Atorvastatin [Lipitor] 40 mg PO HS 04/03/15 [History] Calcium Carbonate/Vitamin D2 [Oyster Shell Calcium-Vit D Tab] 1 tab PO DAILY 02/04 [History] Cholecalciferol (Vitamin D3) [Vitamin D3] 1,000 unit PO DAILY 04/03/15 [History] Docusate Sodium [Colace] 200 mg PO BID 04/03/15 [History] FLUoxetine HCl [Prozac] 40 mg PO DAILY 04/03/15 [History] Folic Acid 1 mg PO DAILY 04/03/15 [History] Gemfibrozil [Lopid] 600 mg PO BID 04/03/15 [History] Lisinopril [Zestril] 10 mg PO DAILY 04/03/15 [History] Magnesium Hydroxide [Milk of Magnesia] 30 ml PO DAILY PRN 04/03/15 [History] Metformin HCl [Glucophage] 1,000 mg PO BID 04/03/15 [History] Polyethylene Glycol 3350 [MiraLAX bowel prep] 15 gm PO BID PRN #0 04/03/15 [ History] carBAMazepine [Tegretol] 400 mg PO HS 04/03/15 [History] clonazePAM [Klonopin] 0.5 mg PO BID 04/03/15 [History] Albuterol Neb [Proventil Neb] 2.5 mg IH Q4H PRN 09/22/15 [History] Mag Hydrox/Al Hydrox/Simeth [Adv Antacid-Ant[place] Liquid] 30 ml PO Q4H PRN #0 [History] Noti-3 Fatty Acids/Fish Oil [Noti-3 Fish Oil 1,000 mg Sfgl] 1,000 mg PO BID [History] carBAMazepine [Tegretol] 200 mg PO QAM 09/22/15 [History] Cariprazine HCl [Vraylar] 1.5 mg PO HS 09/13/16 [History] Aspirin 81 mg PO DAILY 09/15/16 [History] Loperamide [Imodium] 4 mg PO AD PRN 09/15/16 [History] Metoprolol XL (24 HR) Succ [Toprol Xl] 12.5 mg PO DAILY 09/15/16 [History] Furosemide [Lasix] 60 mg PO DAILY #90 tab 09/17/16 [Rx] Allergies No Known Allergies Allergy (Verified 09/22/15 09:12) All Systems PM: A 10-system review of systems was performed and is negative for pertinent findings except as documented above in the HPI. Review of systems: Unable to completely review of systems due to the patient's mental condition - Constitutional Vitals: Temp Pulse Resp BP Pulse Ox 97.7 F 80 28 110/67 92 09/20/16 08:21 09/20/16 08:35 09/20/16 08:42 09/20/16 08:35 09/20/16 08:42 General appearance: Present: A&O X 0 - Head Head exam: Present: atraumatic, normocephalic - Eye Eye exam: Present: PERRL, conjuntiva pink, sclera anicteric Pupils: Present: PERRL - Neck Neck exam general surgery: Present: supple, trachea midline. Absent: lymphadenopathy - Respiratory Respiratory exam: Present: CTAB, rales (Bibasilar crackles, fine diffuse wheezing). Absent: accessory muscle use, rhonchi, wheezes - Cardiovascular Cardiovascular exam: Present: RRR, +S1, +S2. Absent: diastolic murmur, gallop, rubs, systolic murmur - GI/Abdominal GI/Abdominal exam: Present: hypoactive bowel sounds (Colostomy bag in place, large medial abdominal scar from prior surgical procedure), normal bowel sounds , soft, no peritoneal signs. Absent: distended, tenderness - Extremities Exam Extremities exam: Present: pedal edema (+2 pitting edema both lower extremities) , warm, radial pulses palpable and symetrical. Absent: calf tenderness, cyanotic - Neurological Exam Neurological exam: Present: CN II-XII intact, no focal deficits. Absent: oriented X3, pronater drift, facial droop, speech deficit - Skin Skin exam: Present: dry, intact Internal Med - H&P Results - Labs CBC & Chem 7: 09/20/16 07:22 09/20/16 07:22 Labs: Short CBC 09/20/16 Range/Units 07:22 WBC 20.5 H D (4.3-11.1) K/mcL Hgb 13.5 (12.9-16.9) g/dL Hct 40.7 (37.5-50.1) % Plt Count 186 (140-400) K/mcL Neutrophils # 17.9 H (1.6-8.9) K/mcL BMP 09/20/16 07:22 Sodium 132 L Potassium 4.6 H Chloride 99 Carbon Dioxide 24 BUN 28 H Creatinine 1.02 Glucose 171 H Calcium 9.6 Cardiac Enzymes 09/20/16 Range/Units 07:22 Troponin I 0.01 (0-0.03) ng/mL Urine 09/20/16 Range/Units 07:27 Urine Color Yellow (Yellow) Urine Clarity Clear (Clear) Urine pH 5.5 (5.0-8.0) pH Units Ur Specific [place] 1.028 H (1.010-1.025) Urine Protein Trace (Neg-Trace) mg/dL Urine Glucose (UA) Normal (Normal) mg/dL - Impressions ITS Impressions Chest X-Ray 09/20/16 07:08 IMPRESSION: Suspected infiltrate in the right lung base with a small right effusion. Mild left basilar atelectasis. Follow up to resolution is suggested. D/ / 09/20/2016 08:16:20 Christen Monroe MD / enricortevie Interpreting Provider: Christen Monroe MD Head CT 09/20/16 07:10 IMPRESSION: No acute intracranial abnormality. D/ / Hugh Clark / Hugh Clark Interpreting Provider: Hugh Clark
[2016-09-20] MEDS ORDERED: Dextrose Gel 15 GM PO PRN ×2 (09:15)
[2016-09-20] MEDS ORDERED: *HR* Dextrose 50 % in Water (Syg) 50 ML SYRINGE IVP PRN (09:15)
[2016-09-20] MEDS ORDERED: D5% in Water 1,000 ML IVC PRN (09:15)
[2016-09-20] MEDS: Ipratropium/Albuterol Neb 3 ML IH SCH ×3 (10:32→21:56)
[2016-09-20] MEDS: Piperacillin/Tazobactam 3.375 GM in D5% in Water (Mini-Bag+) 100 ML IVPB ONE ×2 (11:00→12:15)
[2016-09-20] MEDS: *HR* Metformin 500 MG TABLET PO SCH ×2 (12:09→20:36)
[2016-09-20] MEDS: Aspirin 81 MG TAB.CHEW PO SCH (12:10)
[2016-09-20] MEDS: carBAMazepine 200 MG TABLET PO SCH ×2 (12:10→20:37)
[2016-09-20] MEDS: FLUoxetine 20 MG CAPSULE PO SCH (12:10)
[2016-09-20] MEDS: clonazePAM 0.5 MG TABLET PO SCH ×2 (12:11→20:37)
[2016-09-20] MEDS: Folic Acid 1 MG TABLET PO SCH (12:11)
[2016-09-20] MEDS: Metoprolol XL (24 HR) Succ 25 MG TAB.ER.24H PO SCH (12:11)
[2016-09-20] MEDS: Furosemide 40 MG/4 ML VIAL IVP SCH ×2 (12:12→20:37)
[2016-09-20] MEDS: Levofloxacin 750 MG/150 ML 750 MG/150 ML BAG IVPB SCH (12:12)
[2016-09-20] MEDS: Insulin LISPRO 300 UNITS/3 ML VIAL SQ SCH ×2 (12:13→17:41)
[2016-09-20] MEDS: Cefepime HCl 1,000 MG in D5% in Water (Mini-Bag+) 100 ML IVPB SCH ×2 (13:49→22:02)
[2016-09-20] MEDS: *HR* Heparin 5,000 UNIT/ML VIAL SQ SCH ×2 (13:49→22:01)
--- NOTE | 2016-09-20 15:32 | Electrocardiograph Report ---
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
[2016-09-20] MEDS: MethylPREDNISolone 40 MG/ML VIAL IVP SCH ×2 (17:41→23:02)
[2016-09-20] MEDS ORDERED: Insulin LISPRO 300 UNITS/3 ML VIAL SQ SCH (21:00)
[2016-09-20 22:40] LABS: mecA Methicillin-Resist Gene Not Detected (Not Detect)
[2016-09-20 22:41] LABS: Acinetobacter baumannii by PCR Not Detected (Not Detect); Candida albicans by PCR Not Detected (Not Detect); Candida glabrata by PCR Not Detected (Not Detect); Candida krusei by PCR Not Detected (Not Detect); Candida parapsilosis by PCR Not Detected (Not Detect); Candida tropicalis by PCR Not Detected (Not Detect); Enterococcus by PCR Not Detected (Not Detect); Escherichia coli by PCR Not Detected (Not Detect); Klebsiella oxytoca by PCR Not Detected (Not Detect); Klebsiella pneumoniae by PCR Not Detected (Not Detect); Pseudomonas aeruginosa by PCR Not Detected (Not Detect); Serratia marcescens by PCR Not Detected (Not Detect); Staphylococcus aureus by PCR ***DETECTED*** (Not Detect); Streptococcus agalactiae(B)PCR Not Detected (Not Detect); Streptococcus by PCR Not Detected (Not Detect); Streptococcus pneumoniae PCR Not Detected (Not Detect); Streptococcus pyogenes (A) PCR Not Detected (Not Detect)
[2016-09-21] MEDS: Acetaminophen 325 MG TABLET PO PRN (00:30)
[2016-09-21] MEDS: Ipratropium/Albuterol Neb 3 ML IH SCH ×4 (03:48→23:04)
[2016-09-21 05:29] LABS: Hematocrit 37.5 % (37.5-50.1); Hemoglobin 12.5 g/dL (12.9-16.9); Mean Corpuscular HGB Conc 33.3 g/dL (31.6-35.5); Mean Corpuscular Hemoglobin 30.4 pg (28.0-33.3); Mean Corpuscular Volume 91.2 fL (83.0-100.0); Mean Platelet Volume 10.1 fL (9.4-12.4); Platelet Count 180 K/mcL (140-400); Red Blood Count 4.11 M/mcL (4.19-5.50); Red Cell Distribution Width 15.2 % (11.5-14.5)
[2016-09-21 05:46] LABS: Calcium 9.4 mg/dL (8.6-10.8); Potassium 4.3 mEq/L (3.5-4.5)
[2016-09-21] MEDS: *HR* Heparin 5,000 UNIT/ML VIAL SQ SCH ×3 (06:16→21:25)
[2016-09-21] MEDS: Levofloxacin 750 MG/150 ML 750 MG/150 ML BAG IVPB SCH (07:55)
[2016-09-21] MEDS: Folic Acid 1 MG TABLET PO SCH (07:56)
[2016-09-21] MEDS: Metoprolol XL (24 HR) Succ 25 MG TAB.ER.24H PO SCH (07:57)
[2016-09-21] MEDS: FLUoxetine 20 MG CAPSULE PO SCH (07:58)
[2016-09-21] MEDS: carBAMazepine 200 MG TABLET PO SCH ×2 (07:58→20:17)
[2016-09-21] MEDS: Aspirin 81 MG TAB.CHEW PO SCH (07:59)
[2016-09-21] MEDS: clonazePAM 0.5 MG TABLET PO SCH ×2 (07:59→20:17)
[2016-09-21] MEDS: *HR* Metformin 500 MG TABLET PO SCH (07:59)
[2016-09-21] MEDS: MethylPREDNISolone 40 MG/ML VIAL IVP SCH ×2 (08:00→16:33)
[2016-09-21] MEDS: Furosemide 40 MG/4 ML VIAL IVP SCH (08:00)
[2016-09-21] MEDS: Insulin LISPRO 300 UNITS/3 ML VIAL SQ SCH ×3 (08:27→17:15)
[2016-09-21] MEDS: Cefepime HCl 1,000 MG in D5% in Water (Mini-Bag+) 100 ML IVPB SCH (11:23)
[2016-09-21] MEDS ORDERED: D5% in Water 1,000 ML IVC PRN (12:18)
[2016-09-21] MEDS ORDERED: *HR* Dextrose 50 % in Water (Syg) 50 ML SYRINGE IVP PRN (12:18)
[2016-09-21] MEDS ORDERED: Dextrose Gel 15 GM PO PRN ×2 (12:18)
[2016-09-21] MEDS ORDERED: Vancomycin 1,500 MG in D5% in Water 250 ML IVPB SCH (13:00)
[2016-09-21] MEDS ORDERED: Vancomycin 1,500 MG in D5% in Water 250 ML IVPB ONE (14:00)
--- NOTE | 2016-09-21 17:03 | Internal Med Progress Note ---
Date of Encounter: 09/21/16 Time of Encounter: 11:00 - Assessment and plan (1) Sepsis Current Visit: Yes Status: Acute Assessment and plan: Pt does meet sepsis criteria with Leukocytosis, tachycardia and source of inf as PNA His blood cx 05/24 came back as positive for G +ve cocci - could be due to PNA cont close monitoring No IVF due to CHF history cont broad spec abx - Cefepime, levofloxacin and Vancomycin will f/u on sputum cx Qualifiers: Qualified Code(s): A41.9 - Sepsis, unspecified organism (2) Acute and chronic respiratory failure ([id number]) Current Visit: No Status: Acute Assessment and plan: due to MLL PNA cont bronchodilators since pt is not keeping up his NC, would continue venturi mask will try to put him on high flow O2 which might be best for him due to his PNA Qualifiers: Respiratory failure complication: hypoxia Qualified Code(s): J96.21 - Acute and chronic respiratory failure with hypoxia (3) Pneumonia Current Visit: Yes Status: Acute Assessment and plan: mostly bacterial cont broad spec abx Qualifiers: Pneumonia type: due to unspecified organism Laterality: right Lung location: lower lobe of lung Qualified Code(s): J18.1 - Lobar pneumonia, unspecified organism (4) COPD with exacerbation Current Visit: Yes Status: Acute Assessment and plan: Pt does have COPD exacerbation cont Duoneb and high dose IV steroids (5) Diastolic CHF Current Visit: Yes Status: Chronic Assessment and plan: Not in exacerbation Held Lasix due to his Sepsis resumed other home meds Qualifiers: Qualified Code(s): I50.32 - Chronic diastolic (congestive) heart failure (6) EDDIE (acute kidney injury) Current Visit: Yes Status: Acute Assessment and plan: due to sepsis avoid nephrotoxic meds d/c Lasix no need of IVF now due to CHF (7) Diabetes mellitus Current Visit: No Status: Chronic Assessment and plan: On ISS Qualifiers: Diabetes mellitus type: type 2 Diabetes mellitus complication status: without complication Diabetes mellitus correction insulin use: without correction use Qualified Code(s): E11.9 - Type 2 diabetes mellitus without complications (8) Bipolar 1 disorder Current Visit: No Status: Chronic Assessment and plan: Resumed his home meds (9) DVT prophylaxis Current Visit: No Status: Acute Assessment and plan: on SQ Heparin - Subjective Interval history: Mr. Lubin is a 71 year old male with a past medical history of chronic respiratory failure, chronic cognitive disorder, right pleural effusion and diastolic CHF who was recently discharged from this hospital on 09/17/2016 where he was seen for diastolic CHF, during his hospitalization his dose of Lasix was increased from 40 60 mg daily. He was transferred back to the emergency room on 09/20/16 when he became hypoxic, his saturation of oxygen was 85% with blood cell count is 20.5 glucose 171 chest x-ray shows a new possible right lower lobe infiltrate and a persistent left pleural effusion. Pt was admitted with sepsis and MLL pneumonia. Pt is alert and awake following all the commands, mentation dc seems to be at his baseline today. - Constitutional Vitals: Temp Pulse Resp BP Pulse Ox 99.4 F 79 20 124/74 92 09/21/16 11:15 09/21/16 11:15 09/21/16 16:27 09/21/16 11:15 09/21/16 16:27 General appearance: Present: A&O X 0 - Head Head exam: Present: atraumatic, normal inspection - Neck Neck exam general surgery: Present: supple. Absent: lymphadenopathy, thyromegaly - Respiratory Respiratory exam: Present: decreased breath sounds, respiratory distress (mild) , rhonchi, wheezes, tachypnea. Absent: rales - Cardiovascular Cardiovascular exam: Present: RRR, +S1, +S2 - GI/Abdominal GI/Abdominal exam: Present: distended, normal bowel sounds, soft. Absent: rebound, rigid, tenderness - Extremities Exam Extremities exam: Present: pedal edema. Absent: calf tenderness, tenderness - Neurological Exam Neurological exam: Present: altered - Psychiatric Additional comments: confused / altered Internal Medicine: Result - Labs CBC & Chem 7: 09/21/16 04:57 09/21/16 04:57 Labs: Short CBC 09/21/16 Range/Units 04:57 WBC 22.5 H (4.3-11.1) K/mcL Hgb 12.5 L (12.9-16.9) g/dL Hct 37.5 (37.5-50.1) % Plt Count 180 (140-400) K/mcL BMP 09/21/16 04:57 Sodium 133 L Potassium 4.3 Chloride 97 L Carbon Dioxide 23 BUN 42 H D Creatinine 1.62 H D Glucose 164 H Calcium 9.4 - ABG Interpretation ABG results: PT/INR, D-dimer PT 14.8 Seconds (9.4-12.1) H 09/20/16 07:22 Consult Discharge Plan - Plan Referrals: Edelmira Brennan MD [Partnered Physician] - 09/28/16 2:30 pm NONE,PCP [Primary Care Provider] -
[2016-09-22] MEDS: Ipratropium/Albuterol Neb 3 ML IH SCH ×4 (04:57→22:09)
[2016-09-22] MEDS ORDERED: Vancomycin 1,500 MG in D5% in Water 250 ML IVPB SCH (05:00)
[2016-09-22] MEDS: *HR* Heparin 5,000 UNIT/ML VIAL SQ SCH ×3 (05:15→21:37)
[2016-09-22] MEDS: MethylPREDNISolone 40 MG/ML VIAL IVP SCH ×4 (05:15→21:37)
[2016-09-22] MEDS: Cefepime HCl 1,000 MG in D5% in Water (Mini-Bag+) 100 ML IVPB SCH ×2 (05:18→17:22)
[2016-09-22 05:33] LABS: Basophils % 0.1 %; Hematocrit 31.9 % (37.5-50.1); Immature Granulocytes % 3.1 % (0-4); Lymphocytes # 1.5 K/mcL (0.6-4.6); Lymphocytes % 8.1 %; Mean Corpuscular HGB Conc 33.5 g/dL (31.6-35.5); Mean Corpuscular Hemoglobin 30.5 pg (28.0-33.3); Mean Corpuscular Volume 90.9 fL (83.0-100.0); Mean Platelet Volume 10.9 fL (9.4-12.4); Monocytes # 1.8 K/mcL (0.0-1.3); Monocytes % 9.9 %; Neutrophils # 14.2 K/mcL (1.6-8.9); Platelet Count 178 K/mcL (140-400); Red Blood Count 3.51 M/mcL (4.19-5.50); Red Cell Distribution Width 15.1 % (11.5-14.5); Segmented Neutrophils % 78.8 %
[2016-09-22 05:34] LABS: Albumin 2.4 g/dL (3.5-5.0); Albumin/Globulin Ratio 0.5 (1.1-2.2); Bilirubin,Total 0.3 mg/dL (0.2-1.2); Calcium 9.1 mg/dL (8.6-10.8); Globulin 4.5 g/dL (2.4-3.5); Magnesium 2.2 mg/dL (1.6-2.6); Potassium 4.4 mEq/L (3.5-4.5); Total Protein 6.9 g/dL (6.0-8.3)
[2016-09-22 05:59] LABS: Hemoglobin 10.7 g/dL (12.9-16.9)
[2016-09-22] MEDS: FLUoxetine 20 MG CAPSULE PO SCH (08:33)
[2016-09-22] MEDS: Folic Acid 1 MG TABLET PO SCH (08:34)
[2016-09-22] MEDS: Metoprolol XL (24 HR) Succ 25 MG TAB.ER.24H PO SCH (08:34)
[2016-09-22] MEDS: Insulin LISPRO 300 UNITS/3 ML VIAL SQ SCH ×3 (08:34→17:16)
[2016-09-22] MEDS: Aspirin 81 MG TAB.CHEW PO SCH (08:34)
[2016-09-22] MEDS: clonazePAM 0.5 MG TABLET PO SCH ×2 (08:34→21:37)
[2016-09-22] MEDS: carBAMazepine 200 MG TABLET PO SCH ×2 (08:34→21:37)
[2016-09-22] MEDS ORDERED: Levofloxacin 750 MG/150 ML 750 MG/150 ML BAG IVPB SCH (09:00)
[2016-09-22] MEDS: Acetaminophen 325 MG TABLET PO PRN (11:47)
--- NOTE | 2016-09-22 12:10 | Internal Med Progress Note ---
Date of Encounter: 09/22/16 Time of Encounter: 12:08 - Assessment and plan (1) Sepsis Current Visit: Yes Status: Acute Assessment and plan: Improving His blood cx / came back as positive for MSSA- could be due to PNA His septicemia mostly due to his PNA He has 2 D Echo done on 09/15/16 - which did not show any valve abnormalities He does not have any cardiac murmur repeated blood cx this morning.. if they persistently elevated he may need MIRIAM for now d/c Vancomycin Cont Cefepime and Levofloxacin cont close monitoring check ESR and CRP in AM No IVF due to CHF history will f/u on sputum cx Qualifiers: Qualified Code(s): A41.9 - Sepsis, unspecified organism (2) Acute and chronic respiratory failure ([id number]) Current Visit: No Status: Acute Assessment and plan: Improving due to MLL PNA cont bronchodilators Try wean him off the O2 as he tolerates Qualifiers: Respiratory failure complication: hypoxia Qualified Code(s): J96.21 - Acute and chronic respiratory failure with hypoxia (3) Pneumonia Current Visit: Yes Status: Acute Assessment and plan: mostly bacterial cont broad spec abx Qualifiers: Pneumonia type: due to unspecified organism Laterality: right Lung location: lower lobe of lung Qualified Code(s): J18.1 - Lobar pneumonia, unspecified organism (4) COPD with exacerbation Current Visit: Yes Status: Acute Assessment and plan: Pt does have COPD exacerbation cont Duoneb will start tapering his IV steroids in AM (5) Diastolic CHF Current Visit: Yes Status: Chronic Assessment and plan: Not in exacerbation Held Lasix due to his Sepsis resumed other home meds Qualifiers: Qualified Code(s): I50.32 - Chronic diastolic (congestive) heart failure (6) EDDIE (acute kidney injury) Current Visit: Yes Status: Acute Assessment and plan: due to sepsis avoid nephrotoxic meds Improving Held Lasix no need of IVF now due to CHF (7) Diabetes mellitus Current Visit: No Status: Chronic Assessment and plan: Resumed home med Metformin and placed him on ISS Qualifiers: Diabetes mellitus type: type 2 Diabetes mellitus complication status: without complication Diabetes mellitus extermination inspector insulin use: without extermination inspector use Qualified Code(s): E11.9 - Type 2 diabetes mellitus without complications (8) Bipolar 1 disorder Current Visit: No Status: Chronic Assessment and plan: Resumed his home meds (9) DVT prophylaxis Current Visit: No Status: Acute Assessment and plan: on SQ Heparin - Subjective Interval history: Mr. Lubin is a 71 year old male with a past medical history of chronic respiratory failure, chronic cognitive disorder, right pleural effusion and diastolic CHF who was recently discharged from this hospital on 09/17/2016 where he was seen for diastolic CHF, during his hospitalization his dose of Lasix was increased from 40 60 mg daily. He was transferred back to the emergency room on 09/20/16 saturation of oxygen was 85% with blood cell count is 20.5 glucose 171 chest x-ray shows a new possible right lower lobe infiltrate and a persistent left pleural effusion. Pt was admitted with sepsis and MLL pneumonia. Pt is alert and awake following all the commands, mentation dc seems to be at his baseline today. No events over night - Constitutional Vitals: Temp Pulse Resp BP Pulse Ox 97.2 F L 82 22 124/93 91 09/22/16 11:43 09/22/16 07:57 09/22/16 11:43 09/22/16 11:43 09/22/16 11:43 General appearance: Present: A&O X 0, mild distress - Head Head exam: Present: atraumatic, normal inspection - Respiratory Respiratory exam: Present: decreased breath sounds, rales, respiratory distress (mild), rhonchi, wheezes - Cardiovascular Cardiovascular exam: Present: RRR, +S1, +S2. Absent: systolic murmur - GI/Abdominal GI/Abdominal exam: Present: normal bowel sounds, soft. Absent: guarding, rebound, rigid, tenderness Additional comments: Colostomy bag + - Extremities Exam Extremities exam: Present: pedal edema. Absent: calf tenderness, tenderness - Psychiatric Additional comments: mentation dc at his baseline Internal Medicine: Result - Labs CBC & Chem 7: 09/22/16 04:59 09/22/16 04:59 Labs: Short CBC 09/22/16 Range/Units 04:59 WBC 18.1 H (4.3-11.1) K/mcL Hgb 10.7 L D (12.9-16.9) g/dL Hct 31.9 L (37.5-50.1) % Plt Count 178 (140-400) K/mcL Neutrophils # 14.2 H (1.6-8.9) K/mcL BMP 08/03/17 04:59 Sodium 131 L Potassium 4.4 Chloride 96 L Carbon Dioxide 29 BUN 53 H D Creatinine 1.46 H Glucose 146 H Calcium 9.1 Liver Function 09/22/16 Range/Units 04:59 Total Bilirubin 0.3 (0.2-1.2) mg/dL AST 15 (5-34) Units/L ALT 11 (0-55) Units/L Alkaline Phosphatase 57 (38-126) Units/L Albumin 2.4 L (3.5-5.0) g/dL - ABG Interpretation ABG results: PT/INR, D-dimer PT 14.8 Seconds (9.4-12.1) H 09/20/16 07:22 Consult Discharge Plan - Plan Referrals: Edelmira Brennan MD [Partnered Physician] - 09/28/16 2:30 pm NONE,PCP [Primary Care Provider] -
[2016-09-22] MEDS ORDERED: Furosemide 20 MG/2 ML VIAL IVP ONE (12:45)
[2016-09-22] MEDS ORDERED: Albuterol 2.5 MG/3 ML NEBULIZER IH ONE (13:19)
[2016-09-23] MEDS: Ipratropium/Albuterol Neb 3 ML IH SCH ×4 (04:19→22:47)
[2016-09-23] MEDS: *HR* Heparin 5,000 UNIT/ML VIAL SQ SCH (05:50)
[2016-09-23 06:24] LABS: Basophils % 0.1 %; Hematocrit 31.9 % (37.5-50.1); Hemoglobin 10.4 g/dL (12.9-16.9); Immature Granulocytes % 1.9 % (0-4); Lymphocytes % 7.4 %; Mean Corpuscular HGB Conc 32.6 g/dL (31.6-35.5); Mean Corpuscular Hemoglobin 30.1 pg (28.0-33.3); Mean Corpuscular Volume 92.5 fL (83.0-100.0); Mean Platelet Volume 10.9 fL (9.4-12.4); Monocytes # 1.3 K/mcL (0.0-1.3); Monocytes % 9.2 %; Neutrophils # 11.3 K/mcL (1.6-8.9); Platelet Count 187 K/mcL (140-400); Red Blood Count 3.45 M/mcL (4.19-5.50); Red Cell Distribution Width 14.9 % (11.5-14.5); Segmented Neutrophils % 81.4 %
[2016-09-23] MEDS: Cefepime HCl 1,000 MG in D5% in Water (Mini-Bag+) 100 ML IVPB SCH (06:25)
[2016-09-23] MEDS: MethylPREDNISolone 40 MG/ML VIAL IVP SCH ×3 (06:25→23:58)
[2016-09-23 06:46] LABS: BUN/Creatinine Ratio 44 (6-26); Blood Urea Nitrogen 47 mg/dL (8-26); C-Reactive Protein 435 mg/L (Less than 5); Calcium 9.3 mg/dL (8.6-10.8); Carbon Dioxide 27 mEq/L (19-29); Chloride 99 mEq/L (98-109); Glucose 143 mg/dL (70-99); Magnesium 2.7 mg/dL (1.6-2.6); Osmolality,Calculated 295 (280-300); Potassium 5.1 mEq/L (3.5-4.5); Sodium 135 mEq/L (136-145); eGFR For African Americans > 60 (> 60); eGFR For Non-African Americans > 60 (> 60)
[2016-09-23] MEDS ORDERED: Aminoglycoside Consult 1 EACH MC ONE (09:09)
[2016-09-23] MEDS: Insulin LISPRO 300 UNITS/3 ML VIAL SQ SCH ×3 (09:13→16:16)
[2016-09-23] MEDS: carBAMazepine 200 MG TABLET PO SCH ×2 (09:15→21:13)
[2016-09-23] MEDS: FLUoxetine 20 MG CAPSULE PO SCH (09:15)
[2016-09-23] MEDS: Metoprolol XL (24 HR) Succ 25 MG TAB.ER.24H PO SCH (09:16)
[2016-09-23] MEDS: Folic Acid 1 MG TABLET PO SCH (09:16)
[2016-09-23] MEDS: clonazePAM 0.5 MG TABLET PO SCH ×2 (09:16→21:13)
[2016-09-23] MEDS: Aspirin 81 MG TAB.CHEW PO SCH (09:16)
--- NOTE | 2016-09-23 11:55 | Internal Med Progress Note ---
Date of Encounter: 09/23/16 Time of Encounter: 11:53 - Assessment and plan (1) Sepsis Current Visit: Yes Status: Acute Assessment and plan: Improving His blood cx / came back as positive for MSSA- could be due to PNA His septicemia mostly due to his PNA Repeated blood cx no growth so far He has 2 D Echo done on 09/15/16 - which did not show any valve abnormalities Changed the abx to Ancef 2gm Q8hr + 10 days course Cont Levofloxacin # 3/7 cont close monitoring Significantly elevated ESR and CRP due to septicemia will trend on them No IVF due to CHF history sputum cx - P Spoke to caregiver from nursing home and explained to her about current care Qualifiers: Qualified Code(s): A41.9 - Sepsis, unspecified organism (2) Acute and chronic respiratory failure ([id number]) Current Visit: No Status: Acute Assessment and plan: Improving due to MLL PNA cont bronchodilators Cont high flow O2.. try to wean him off as he tolerates started him on Pulmicort Neb also will do chest PT Qualifiers: Respiratory failure complication: hypoxia Qualified Code(s): J96.21 - Acute and chronic respiratory failure with hypoxia (3) Pneumonia Current Visit: Yes Status: Acute Assessment and plan: bacterial cont broad spec abx Qualifiers: Pneumonia type: due to unspecified organism Laterality: right Lung location: lower lobe of lung Qualified Code(s): J18.1 - Lobar pneumonia, unspecified organism (4) COPD with exacerbation Current Visit: Yes Status: Acute Assessment and plan: Pt does have COPD exacerbation cont Duoneb Cont tapering his IV steroids (5) Diastolic CHF Current Visit: Yes Status: Chronic Assessment and plan: Not in exacerbation Held Lasix due to his Sepsis resumed other home meds Qualifiers: Qualified Code(s): I50.32 - Chronic diastolic (congestive) heart failure (6) EDDIE (acute kidney injury) Current Visit: Yes Status: Acute Assessment and plan: due to sepsis avoid nephrotoxic meds Improving Held Lasix no need of IVF now due to CHF (7) Diabetes mellitus Current Visit: No Status: Chronic Assessment and plan: Resumed home med Metformin and placed him on ISS Qualifiers: Diabetes mellitus type: type 2 Diabetes mellitus complication status: without complication Diabetes mellitus meterman insulin use: without group home use Qualified Code(s): E11.9 - Type 2 diabetes mellitus without complications (8) Bipolar 1 disorder Current Visit: No Status: Chronic Assessment and plan: Resumed his home meds (9) DVT prophylaxis Current Visit: No Status: Acute Assessment and plan: will give him SQ Lovenox - Subjective Interval history: Mr. Lubin is a 71 year old male with a past medical history of chronic respiratory failure, chronic cognitive disorder, right pleural effusion and diastolic CHF who was recently discharged from this hospital on 09/17/2016 where he was seen for diastolic CHF, during his hospitalization his dose of Lasix was increased from 40 60 mg daily. He was transferred back to the emergency room on 09/20/16 saturation of oxygen was 85% with blood cell count is 20.5 glucose 171 chest x-ray shows a new possible right lower lobe infiltrate and a persistent left pleural effusion. Pt was admitted with sepsis and MLL pneumonia. Pt is alert and awake following all the commands, mentation dc seems to be at his baseline. No events over night. Currently on high flow O2 at 8 lit - Constitutional Vitals: Temp Pulse Resp BP Pulse Ox 98.0 F 71 20 135/74 89 09/23/16 11:39 09/23/16 11:39 09/23/16 11:39 09/23/16 11:39 09/23/16 11:39 General appearance: Present: A&O X 0, mild distress - Head Head exam: Present: atraumatic, normal inspection - Respiratory Respiratory exam: Present: decreased breath sounds, respiratory distress, rhonchi, wheezes - Cardiovascular Cardiovascular exam: Present: RRR, +S1, +S2. Absent: systolic murmur - GI/Abdominal GI/Abdominal exam: Present: normal bowel sounds, soft. Absent: distended, firm , guarding, tenderness - Extremities Exam Extremities exam: Present: pedal edema. Absent: calf tenderness, tenderness - Neurological Exam Neurological exam: Present: alert - Psychiatric Additional comments: at his baseline mentation dc Internal Medicine: Result - Labs CBC & Chem 7: 09/23/16 05:32 09/23/16 05:32 Labs: Short CBC 09/23/16 Range/Units 05:32 WBC 14.0 H (4.3-11.1) K/mcL Hgb 10.4 L (12.9-16.9) g/dL Hct 31.9 L (37.5-50.1) % Plt Count 187 (140-400) K/mcL Neutrophils # 11.3 H (1.6-8.9) K/mcL BMP 09/23/16 05:32 Sodium 135 L Potassium 5.1 H Chloride 99 Carbon Dioxide 27 BUN 47 H Creatinine 1.07 Glucose 143 H Calcium 9.3 - ABG Interpretation ABG results: PT/INR, D-dimer PT 14.8 Seconds (9.4-12.1) H 09/20/16 07:22 Consult Discharge Plan - Plan Referrals: Edelmira Brennan MD [Partnered Physician] - 09/28/16 2:30 pm NONE,PCP [Primary Care Provider] -
[2016-09-23] MEDS: Levofloxacin 750 MG/150 ML 750 MG/150 ML BAG IVPB SCH (12:41)
[2016-09-23] MEDS: ceFAZolin 2,000 MG in D5% in Water 100 ML IVPB SCH ×2 (14:23→21:13)
[2016-09-23] MEDS: Budesonide Neb 0.5 MG/2 ML IH SCH ×2 (15:42→22:47)
[2016-09-24] MEDS: Ipratropium/Albuterol Neb 3 ML IH SCH ×4 (04:42→22:30)
[2016-09-24 05:14] LABS: Basophils # 0.1 K/mcL (0.0-0.2); Basophils % 0.3 %; Eosinophils % 0.1 %; Hematocrit 31.9 % (37.5-50.1); Hemoglobin 10.4 g/dL (12.9-16.9); Immature Granulocytes % 2.5 % (0-4); Lymphocytes % 6.4 %; Mean Corpuscular HGB Conc 32.6 g/dL (31.6-35.5); Mean Corpuscular Hemoglobin 30.1 pg (28.0-33.3); Mean Corpuscular Volume 92.2 fL (83.0-100.0); Mean Platelet Volume 10.6 fL (9.4-12.4); Monocytes # 1.4 K/mcL (0.0-1.3); Monocytes % 8.9 %; Neutrophils # 12.4 K/mcL (1.6-8.9); Platelet Count 220 K/mcL (140-400); Red Blood Count 3.46 M/mcL (4.19-5.50); Red Cell Distribution Width 14.9 % (11.5-14.5); Segmented Neutrophils % 81.8 %
[2016-09-24] MEDS: ceFAZolin 2,000 MG in D5% in Water 100 ML IVPB SCH ×3 (06:04→21:30)
[2016-09-24] MEDS: *HR* Enoxaparin 40 MG/0.4 ML SYRINGE SQ SCH (06:04)
[2016-09-24] MEDS: Budesonide Neb 0.5 MG/2 ML IH SCH ×2 (09:16→22:30)
[2016-09-24] MEDS: Folic Acid 1 MG TABLET PO SCH (09:24)
[2016-09-24] MEDS: Metoprolol XL (24 HR) Succ 25 MG TAB.ER.24H PO SCH (09:24)
[2016-09-24] MEDS: carBAMazepine 200 MG TABLET PO SCH ×2 (09:24→21:30)
[2016-09-24] MEDS: clonazePAM 0.5 MG TABLET PO SCH ×2 (09:24→21:30)
[2016-09-24] MEDS: Aspirin 81 MG TAB.CHEW PO SCH (09:24)
[2016-09-24] MEDS: FLUoxetine 20 MG CAPSULE PO SCH (09:25)
[2016-09-24] MEDS: Insulin LISPRO 300 UNITS/3 ML VIAL SQ SCH ×3 (09:28→17:26)
[2016-09-24 11:08] LABS: BUN/Creatinine Ratio 38 (6-26); Blood Urea Nitrogen 38 mg/dL (8-26); Calcium 9.6 mg/dL (8.6-10.8); Carbon Dioxide 31 mEq/L (19-29); Chloride 98 mEq/L (98-109); Glucose 110 mg/dL (70-99); Magnesium 2.5 mg/dL (1.6-2.6); Osmolality,Calculated 294 (280-300); Potassium 4.9 mEq/L (3.5-4.5); Sodium 137 mEq/L (136-145); eGFR For African Americans > 60 (> 60); eGFR For Non-African Americans > 60 (> 60)
[2016-09-24] MEDS: MethylPREDNISolone 40 MG/ML VIAL IVP SCH (12:32)
--- NOTE | 2016-09-24 13:13 | Internal Med Progress Note ---
Date of Encounter: 09/24/16 Time of Encounter: 13:11 - Assessment and plan (1) Sepsis Current Visit: Yes Status: Acute Assessment and plan: His blood cx 05/24 came back as positive for MSSA- due to PNA His septicemia mostly due to his PNA Repeated blood cx no growth so far He has 2 D Echo done on 09/15/16 - which did not show any valve abnormalities Changed the abx to Ancef 2gm Q8hr - # 2/ days course Cont Levofloxacin # / cont close monitoring Significantly elevated ESR and CRP due to septicemia will trend on them No IVF due to CHF history sputum cx - P Spoke to caregiver from detention and explained to her about current care Qualifiers: Qualified Code(s): A41.9 - Sepsis, unspecified organism (2) Acute and chronic respiratory failure ([id number]) Current Visit: No Status: Acute Assessment and plan: He does have worsening wheezing today due to MLL PNA cont bronchodilators Cont him on BiPAP PRN durin day time and continuous QHS started him on Pulmicort Neb Ordered chest PT Q shift will get stat CXR now if he does have pulmonary edema will give him Bumex PRN Will consult Pulmonary for further eval Also inc his SOlumedrol to 60 mg Q8hr Qualifiers: Respiratory failure complication: hypoxia Qualified Code(s): J96.21 - Acute and chronic respiratory failure with hypoxia (3) Pneumonia Current Visit: Yes Status: Acute Assessment and plan: bacterial cont broad spec abx Qualifiers: Pneumonia type: due to unspecified organism Laterality: right Lung location: lower lobe of lung Qualified Code(s): J18.1 - Lobar pneumonia, unspecified organism (4) COPD with exacerbation Current Visit: Yes Status: Acute Assessment and plan: Pt does have COPD exacerbation cont Duoneb Inc freq and dose of IV steroids due to worsening wheezing (5) Diastolic CHF Current Visit: Yes Status: Chronic Assessment and plan: Not in exacerbation Held Lasix due to his Sepsis resumed other home meds Qualifiers: Qualified Code(s): I50.32 - Chronic diastolic (congestive) heart failure (6) EDDIE (acute kidney injury) Current Visit: Yes Status: Acute Assessment and plan: due to sepsis avoid nephrotoxic meds Improved His hyprkalemmia also improving Held Lasix no need of IVF now due to CHF (7) Diabetes mellitus Current Visit: No Status: Chronic Assessment and plan: Resumed home med Metformin and placed him on ISS Qualifiers: Diabetes mellitus type: type 2 Diabetes mellitus complication status: without complication 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 Lubin is a 71 year old male with a past medical history of chronic respiratory failure, chronic cognitive disorder, right pleural effusion and diastolic CHF who was recently discharged from this hospital on 09/17/2016 where he was seen for diastolic CHF, during his hospitalization his dose of Lasix was increased from 40 60 mg daily. He was transferred back to the emergency room on 09/20/16 saturation of oxygen was 85% with blood cell count is 20.5 glucose 171 chest x-ray shows a new possible right lower lobe infiltrate and a persistent left pleural effusion. Pt was admitted with sepsis and MLL pneumonia. Pt is alert and awake following all the commands, mentation dc seems to be at his baseline. He is still requiring BiPAP more frequently. - Constitutional Vitals: Temp Pulse Resp BP Pulse Ox 98.3 F 78 20 128/65 92 09/24/16 11:26 09/24/16 09:30 09/24/16 11:26 09/24/16 11:26 09/24/16 11:26 General appearance: Present: A&O X 0, severe distress (moderate to severe distress) - Head Head exam: Present: atraumatic, normal inspection - Respiratory Respiratory exam: Present: decreased breath sounds, respiratory distress ( moderate), wheezes (diffuse), tachypnea. Absent: rhonchi - Cardiovascular Cardiovascular exam: Present: RRR, +S1, +S2. Absent: systolic murmur - GI/Abdominal GI/Abdominal exam: Present: normal bowel sounds, soft. Absent: rebound, rigid, tenderness - Extremities Exam Extremities exam: Present: pedal edema (2 + piting edema). Absent: calf tenderness - Psychiatric Additional comments: at his baseline Internal Medicine: Result - Labs CBC & Chem 7: 09/24/16 04:53 09/24/16 10:02 Labs: Short CBC 09/24/16 Range/Units 04:53 WBC 15.1 H (4.3-11.1) K/mcL Hgb 10.4 L (12.9-16.9) g/dL Hct 31.9 L (37.5-50.1) % Plt Count 220 (140-400) K/mcL Neutrophils # 12.4 H (1.6-8.9) K/mcL BMP 09/24/16 10:02 Sodium 137 Potassium 4.9 H Chloride 98 Carbon Dioxide 31 H BUN 38 H Creatinine 1.00 Glucose 110 H Calcium 9.6 - ABG Interpretation ABG results: PT/INR, D-dimer PT 14.8 Seconds (9.4-12.1) H 09/20/16 07:22 Consult Discharge Plan - Plan Referrals: Edelmira Brennan MD [Partnered Physician] - 09/28/16 2:30 pm NONE,PCP [Primary Care Provider] -
[2016-09-24] MEDS ORDERED: MethylPREDNISolone 40 MG/ML VIAL IVP SCH (13:15)
[2016-09-24] MEDS: Levofloxacin 750 MG/150 ML 750 MG/150 ML BAG IVPB SCH (13:20)
[2016-09-24] MEDS: methylPREDNISolone 125 MG/2 ML VIAL IVP SCH ×2 (13:30→21:30)
[2016-09-24] MEDS ORDERED: MethylPREDNISolone 40 MG/ML VIAL IVP ONE (13:32)
[2016-09-24] MEDS ORDERED: Bumetanide 1 MG/4 ML VIAL IVP ONE (14:07)
[2016-09-25 01:36] LABS: Hematocrit 32.6 % (37.5-50.1); Hemoglobin 10.4 g/dL (12.9-16.9); Mean Corpuscular HGB Conc 31.9 g/dL (31.6-35.5); Mean Corpuscular Hemoglobin 29.7 pg (28.0-33.3); Mean Corpuscular Volume 93.1 fL (83.0-100.0); Mean Platelet Volume 10.7 fL (9.4-12.4); Platelet Count 206 K/mcL (140-400); Red Cell Distribution Width 14.8 % (11.5-14.5)
[2016-09-25 01:50] LABS: BUN/Creatinine Ratio 34 (6-26); Blood Urea Nitrogen 35 mg/dL (8-26); Calcium 9.1 mg/dL (8.6-10.8); Carbon Dioxide 26 mEq/L (19-29); Chloride 99 mEq/L (98-109); Glucose 167 mg/dL (70-99); Magnesium 2.1 mg/dL (1.6-2.6); Osmolality,Calculated 292 (280-300); Potassium 5.1 mEq/L (3.5-4.5); Sodium 135 mEq/L (136-145); eGFR For African Americans > 60 (> 60); eGFR For Non-African Americans > 60 (> 60)
[2016-09-25 02:27] LABS: Lymphocytes # 1.7 K/mcL (0.6-4.6); Monocytes # 1.1 K/mcL (0.0-1.3); Neutrophils # 10.6 K/mcL (1.6-8.9); Platelet Estimate Normal (Normal)
[2016-09-25] MEDS: Ipratropium/Albuterol Neb 3 ML IH SCH ×4 (04:29→23:00)
[2016-09-25] MEDS: methylPREDNISolone 125 MG/2 ML VIAL IVP SCH ×3 (05:55→21:09)
[2016-09-25] MEDS: *HR* Enoxaparin 40 MG/0.4 ML SYRINGE SQ SCH (05:58)
[2016-09-25] MEDS: ceFAZolin 2,000 MG in D5% in Water 100 ML IVPB SCH ×3 (06:02→21:10)
[2016-09-25] MEDS: Aspirin 81 MG TAB.CHEW PO SCH (08:29)
[2016-09-25] MEDS: Metoprolol XL (24 HR) Succ 25 MG TAB.ER.24H PO SCH (08:29)
[2016-09-25] MEDS: clonazePAM 0.5 MG TABLET PO SCH ×2 (08:29→21:10)
[2016-09-25] MEDS: FLUoxetine 20 MG CAPSULE PO SCH (08:29)
[2016-09-25] MEDS: Folic Acid 1 MG TABLET PO SCH (08:29)
[2016-09-25] MEDS: carBAMazepine 200 MG TABLET PO SCH ×2 (08:30→21:10)
[2016-09-25] MEDS: Insulin LISPRO 300 UNITS/3 ML VIAL SQ SCH ×3 (08:30→17:20)
[2016-09-25] MEDS: Budesonide Neb 0.5 MG/2 ML IH SCH ×2 (11:12→23:00)
[2016-09-25] MEDS: Levofloxacin 750 MG/150 ML 750 MG/150 ML BAG IVPB SCH (13:16)
[2016-09-25] MEDS ORDERED: Lactulose Oral Soln 20 GM/30 ML UDC PO PRN (13:35)
--- NOTE | 2016-09-25 13:43 | Internal Med Progress Note ---
Date of Encounter: 09/25/16 Time of Encounter: 13:41 - Assessment and plan (1) Sepsis Current Visit: Yes Status: Acute Assessment and plan: His blood cx / came back as positive for MSSA- due to PNA His septicemia mostly due to his PNA Repeated blood cx no growth so far He has 2 D Echo done on 09/15/16 - which did not show any valve abnormalities Changed the abx to Ancef 2gm Q8hr - # 3/10 days course Cont Levofloxacin # 5/ cont close monitoring sputum cx - P Qualifiers: Qualified Code(s): A41.9 - Sepsis, unspecified organism (2) Acute and chronic respiratory failure ([id number]) Current Visit: No Status: Acute Assessment and plan: due to MLL PNA He still has corase rhonchi and wheezing b/l he is unable to cough out respiratory secretions Cont bronchodilators and Pulmicort Neb Cont him on BiPAP PRN durin day time and continuous QHS Cont chest PT Q shift Recieved 1 dose of Bumex y/d - had -ve 650 fluid balance will give another dose of bumex today Will consult Pulmonary for further eval - may need bronchoscope for a wash Cont Solumedrol at 60 mg Q8hr Qualifiers: Respiratory failure complication: hypoxia Qualified Code(s): J96.21 - Acute and chronic respiratory failure with hypoxia (3) Pneumonia Current Visit: Yes Status: Acute Assessment and plan: bacterial cont broad spec abx Qualifiers: Pneumonia type: due to unspecified organism Laterality: right Lung location: lower lobe of lung Qualified Code(s): J18.1 - Lobar pneumonia, unspecified organism (4) COPD with exacerbation Current Visit: Yes Status: Acute Assessment and plan: Pt does have COPD exacerbation cont Duoneb and steroids (5) Diastolic CHF Current Visit: Yes Status: Chronic Assessment and plan: Not in exacerbation Held Lasix due to his Sepsis resumed other home meds Qualifiers: Qualified Code(s): I50.32 - Chronic diastolic (congestive) heart failure (6) EDDIE (acute kidney injury) Current Visit: Yes Status: Acute Assessment and plan: due to sepsis avoid nephrotoxic meds Improved His hyprkalemmia also improving Held Lasix no need of IVF now due to CHF (7) Diabetes mellitus Current Visit: No Status: Chronic Assessment and plan: Resumed home med Metformin and placed him on ISS Qualifiers: Diabetes mellitus type: type 2 Diabetes mellitus complication status: without complication 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 Lubin is a 71 year old male with a past medical history of chronic respiratory failure, chronic cognitive disorder, right pleural effusion and diastolic CHF who was recently discharged from this hospital on 09/17/2016 where he was seen for diastolic CHF, during his hospitalization his dose of Lasix was increased from 40 60 mg daily. He was transferred back to the emergency room on 09/20/16 saturation of oxygen was 85% with blood cell count is 20.5 glucose 171 chest x-ray shows a new possible right lower lobe infiltrate and a persistent left pleural effusion. Pt was admitted with sepsis and MLL pneumonia. Pt is alert and awake following all the commands, mentation dc seems to be at his baseline. He is still requiring BiPAP more frequently. No events over night - Constitutional Vitals: Temp Pulse Resp BP Pulse Ox 97.8 F 88 31 123/81 98 09/25/16 11:33 09/25/16 11:33 09/25/16 11:33 09/25/16 11:33 09/25/16 11:33 General appearance: Present: A&O X 0, mild distress - Head Head exam: Present: atraumatic, normal inspection - Neck Neck exam general surgery: Present: supple - Respiratory Respiratory exam: Present: decreased breath sounds, respiratory distress (mild) , rhonchi (coarse rhonchi b/l), wheezes. Absent: rales - Cardiovascular Cardiovascular exam: Present: RRR, +S1, +S2 - GI/Abdominal GI/Abdominal exam: Present: normal bowel sounds, soft. Absent: guarding, tenderness Additional comments: no stool in colostomy bag - Extremities Exam Extremities exam: Present: pedal edema (improving). Absent: calf tenderness, tenderness - Psychiatric Psychiatric exam: Present: anxious Internal Medicine: Result - Labs CBC & Chem 7: 09/25/16 01:18 09/25/16 01:18 Labs: Short CBC 09/25/16 Range/Units 01:18 WBC 14.0 H (4.3-11.1) K/mcL Hgb 10.4 L (12.9-16.9) g/dL Hct 32.6 L (37.5-50.1) % Plt Count 206 (140-400) K/mcL Neutrophils # 10.6 H (1.6-8.9) K/mcL BMP 09/25/16 01:18 Sodium 135 L Potassium 5.1 H Chloride 99 Carbon Dioxide 26 BUN 35 H Creatinine 1.02 Glucose 167 H Calcium 9.1 - ABG Interpretation ABG results: PT/INR, D-dimer PT 14.8 Seconds (9.4-12.1) H 09/20/16 07:22 - Impressions Impressions Chest X-Ray 09/24/16 13:03 IMPRESSION: Shifting or increasing right pleural effusion with persistent bibasilar atelectasis right greater than left. D/ / 09/24/2016 13:38:43 Tom Dang MD / cruz Interpreting Provider: Tom Dang MD Consult Discharge Plan - Plan Referrals: Edelmira Brennan MD [Partnered Physician] - 09/28/16 2:30 pm NONE,PCP [Primary Care Provider] -
[2016-09-26 01:35] LABS: Hematocrit 33.4 % (37.5-50.1); Hemoglobin 10.9 g/dL (12.9-16.9); Mean Corpuscular HGB Conc 32.6 g/dL (31.6-35.5); Platelet Count 276 K/mcL (140-400); Red Blood Count 3.63 M/mcL (4.19-5.50); Red Cell Distribution Width 14.7 % (11.5-14.5)
[2016-09-26 01:47] LABS: BUN/Creatinine Ratio 34 (6-26); Blood Urea Nitrogen 35 mg/dL (8-26); Calcium 9.4 mg/dL (8.6-10.8); Carbon Dioxide 27 mEq/L (19-29); Chloride 99 mEq/L (98-109); Glucose 176 mg/dL (70-99); Magnesium 2.5 mg/dL (1.6-2.6); Osmolality,Calculated 292 (280-300); Sodium 135 mEq/L (136-145); eGFR For African Americans > 60 (> 60); eGFR For Non-African Americans > 60 (> 60)
[2016-09-26 01:49] LABS: Potassium 5.9 mEq/L (3.5-4.5)
[2016-09-26 03:11] LABS: Lymphocytes # 2.2 K/mcL (0.6-4.6); Monocytes # 0.6 K/mcL (0.0-1.3); Neutrophils # 12.7 K/mcL (1.6-8.9); Platelet Estimate Normal (Normal)
[2016-09-26] MEDS: Ipratropium/Albuterol Neb 3 ML IH SCH ×4 (03:43→22:35)
[2016-09-26] MEDS: ceFAZolin 2,000 MG in D5% in Water 100 ML IVPB SCH ×3 (05:23→21:15)
[2016-09-26] MEDS: methylPREDNISolone 125 MG/2 ML VIAL IVP SCH (05:23)
[2016-09-26] MEDS: *HR* Enoxaparin 40 MG/0.4 ML SYRINGE SQ SCH (05:24)
[2016-09-26] MEDS: Insulin LISPRO 300 UNITS/3 ML VIAL SQ SCH ×3 (08:36→17:34)
[2016-09-26] MEDS: FLUoxetine 20 MG CAPSULE PO SCH (08:42)
[2016-09-26] MEDS: carBAMazepine 200 MG TABLET PO SCH ×2 (08:42→21:15)
[2016-09-26] MEDS: Metoprolol XL (24 HR) Succ 25 MG TAB.ER.24H PO SCH (08:42)
[2016-09-26] MEDS: clonazePAM 0.5 MG TABLET PO SCH ×2 (08:42→21:16)
[2016-09-26] MEDS: Folic Acid 1 MG TABLET PO SCH (08:42)
[2016-09-26] MEDS: Aspirin 81 MG TAB.CHEW PO SCH (08:43)
[2016-09-26] MEDS: Budesonide Neb 0.5 MG/2 ML IH SCH ×2 (10:51→22:35)
--- NOTE | 2016-09-26 12:51 | Internal Med Progress Note ---
Date of Encounter: 09/26/16 Time of Encounter: 12:49 - Assessment and plan (1) Sepsis Current Visit: Yes Status: Acute Assessment and plan: His blood cx / came back as positive for MSSA- due to PNA His septicemia mostly due to his PNA Repeated blood cx no growth so far He has 2 D Echo done on 09/15/16 - which did not show any valve abnormalities Changed the abx to Ancef 2gm Q8hr - # 4/ days course Cont Levofloxacin # 6/7 cont close monitoring sputum cx - P Qualifiers: Qualified Code(s): A41.9 - Sepsis, unspecified organism (2) Acute and chronic respiratory failure ([id number]) Current Visit: No Status: Acute Assessment and plan: due to MLL PNA He still has corase rhonchi and wheezing b/l he is unable to cough out respiratory secretions Cont bronchodilators and Pulmicort Neb Cont him on BiPAP PRN during day time and continuous QHS Cont chest PT Q shift consulted Pulmonary for further eval - may need bronchoscope for a wash start tapering Solumedrol at 40 mg Q12hr Qualifiers: Respiratory failure complication: hypoxia Qualified Code(s): J96.21 - Acute and chronic respiratory failure with hypoxia (3) Pneumonia Current Visit: Yes Status: Acute Assessment and plan: bacterial cont broad spec abx Qualifiers: Pneumonia type: due to unspecified organism Laterality: right Lung location: lower lobe of lung Qualified Code(s): J18.1 - Lobar pneumonia, unspecified organism (4) COPD with exacerbation Current Visit: Yes Status: Acute Assessment and plan: Pt does have COPD exacerbation cont Duoneb and steroids (5) Hyperkalemia Current Visit: Yes Status: Acute Assessment and plan: will get EKG on Insulin on Albuterol neb avoid any nephrotoxic meds / ACEI gave him 1 dose of Kayexalate (6) Diastolic CHF Current Visit: Yes Status: Chronic Assessment and plan: Not in exacerbation Held Lasix due to his Sepsis resumed other home meds Qualifiers: Qualified Code(s): I50.32 - Chronic diastolic (congestive) heart failure (7) EDDIE (acute kidney injury) Current Visit: Yes Status: Acute Assessment and plan: due to sepsis avoid nephrotoxic meds Improved no need of IVF now due to CHF (8) Diabetes mellitus Current Visit: No Status: Chronic Assessment and plan: Resumed home med Metformin and placed him on ISS Qualifiers: Diabetes mellitus type: type 2 Diabetes mellitus complication status: without complication 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 Lubin is a 71 year old male with a past medical history of chronic respiratory failure, chronic cognitive disorder, right pleural effusion and diastolic CHF who was recently discharged from this hospital on 09/17/2016 where he was seen for diastolic CHF, during his hospitalization his dose of Lasix was increased from 40 60 mg daily. He was transferred back to the emergency room on 09/20/16 saturation of oxygen was 85% with blood cell count is 20.5 glucose 171 chest x-ray shows a new possible right lower lobe infiltrate and a persistent left pleural effusion. Pt was admitted with sepsis and MLL pneumonia. Pt is alert and awake following all the commands, mentation dc seems to be at his baseline. No events over night. He is currently on 10 lit high flow O2.. doing better - Constitutional Vitals: Temp Pulse Resp BP Pulse Ox 97.7 F 92 20 117/89 96 09/26/16 12:24 09/26/16 12:24 09/26/16 12:24 09/26/16 12:24 09/26/16 12:24 General appearance: Present: A&O X 0, mild distress - Head Head exam: Present: atraumatic, normal inspection - Respiratory Respiratory exam: Present: decreased breath sounds, rales (mild), respiratory distress (mild), rhonchi (coarse rhonchi +), wheezes - Cardiovascular Cardiovascular exam: Present: RRR, +S1, +S2. Absent: systolic murmur - GI/Abdominal GI/Abdominal exam: Present: normal bowel sounds, soft. Absent: distended, firm , guarding, tenderness Additional comments: colosotmy bag + stool+ - Extremities Exam Extremities exam: Present: pedal edema (traceble..improved). Absent: calf tenderness, tenderness - Neurological Exam Neurological exam: Present: alert - Psychiatric Psychiatric exam: Present: normal affect, normal mood Internal Medicine: Result - Labs CBC & Chem 7: 09/26/16 01:17 09/26/16 01:17 Labs: Short CBC 09/26/16 Range/Units 01:17 WBC 15.5 H (4.3-11.1) K/mcL Hgb 10.9 L (12.9-16.9) g/dL Hct 33.4 L (37.5-50.1) % Plt Count 276 (140-400) K/mcL Neutrophils # 12.7 H (1.6-8.9) K/mcL BMP 09/26/16 01:17 Sodium 135 L Potassium 5.9 H Chloride 99 Carbon Dioxide 27 BUN 35 H Creatinine 1.03 Glucose 176 H Calcium 9.4 - ABG Interpretation ABG results: PT/INR, D-dimer PT 14.8 Seconds (9.4-12.1) H 09/20/16 07:22 Consult Discharge Plan - Plan Referrals: Edelmira Brennan MD [Partnered Physician] - 10/05/16 11:30 am NONE,PCP [Primary Care Provider] -
[2016-09-26] MEDS: MethylPREDNISolone 40 MG/ML VIAL IVP SCH (13:20)
--- NOTE | 2016-09-26 14:02 | Pulmonology Consult Note ---
Date of Encounter: 09/26/16 Time of Encounter: 14:02 Assessment and Plan (1) Pneumonia Current Visit: Yes Status: Acute This is a 71-year-old gentleman with a past medical history of heart failure with preserved ejection fraction and questionable COPD who presented with right- sided pneumonia which appears to be secondary to staph aureus he has been treated with antimicrobials and clinically I feel that he is improved he remains hypoxemic which is a combination of factors one is some degree of atelectasis and volume loss on the low right side related to pneumonia and mucous production along with volume overload secondary to heart failure. Course is complicated by patient inability to participate in aggressive chest physiotherapy including expectoration of cough etc. -Continuation of conservative therapies including chest physiotherapy/ percussion every 4-6 hours I discussed this with the respiratory therapist and I would try to get the patient out of bed to chair as much as possible and in fact ambulation with supervision if this is possible. His oxygen saturation should be greater than 89% and encouragingly oxygen saturation remained with a decent waveform in the low 90s. 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 To this and I would stop his inhaled budesonide as this could actually worsen ongoing tracheomalacia. It is reasonable to continue scheduled bronchodilators. And if the patient can tolerate positive airway pressure this would be helpful each night. Additionally given persistent leukocytosis I would stop IV formulation of steroids as I do not feel therapeutically beneficial right now and are obscuring the picture of treatment for pneumonia -We will continue to make sure patient has negative at least 500 mL and at this juncture I would actually add back his home regimen of loop diuretic with daily monitoring of his electrolyte panel and renal function which can be followed by the primary medicine service -We will consider bronchoscopy although given her cognitive issues and current clinical condition I am lessening whether this will be particularly helpful we will make a final decision based upon clinical course of next 24-48 hours if patient fails conservative therapy -Chemical DVT prophylaxis unless contraindication arises Qualifiers: Pneumonia type: due to unspecified organism Laterality: right Lung location: lower lobe of lung Qualified Code(s): J18.1 - Lobar pneumonia, unspecified organism (2) COPD (chronic obstructive pulmonary disease) Current Visit: Yes Status: Acute Qualifiers: Emphysema type: unspecified Qualified Code(s): J43.9 - Emphysema, unspecified (3) CHF (congestive heart failure) Current Visit: Yes Status: Acute Qualifiers: Congestive heart failure type: diastolic Congestive heart failure chronicity: acute on chronic Qualified Code(s): I50.33 - Acute on chronic diastolic (congestive) heart failure (4) Acute and chronic respiratory failure ([id number]) Current Visit: No Status: Acute Qualifiers: Respiratory failure complication: hypoxia Qualified Code(s): J96.21 - Acute and chronic respiratory failure with hypoxia (5) Sepsis Current Visit: Yes Status: Acute Qualifiers: Qualified Code(s): A41.9 - Sepsis, unspecified organism History of Present Illness Consult date: 09/26/16 Requesting physician: Eva Morris Reason for consult: pneumonia Chief complaint: Shortness of breath. History of present illness: 71-year-old gentleman with a history of mental developmental delay since childhood lives in a half-way unable to provide any information all history was obtained from chart nursing staff and bedside aide who lives at the nursing facility and who is here visiting. Patient was admitted for pneumonia has been treated for over a week but has been persistently hypoxic requiring 8-10 L high flow oxygen to keep saturations in the mid 90. Of note he was just dischargdthe day before presentation for shortness of breath and was discharged back to facility after diuretic adjustment. Per record patient suffers from COPD although I am unclear of how the diagnosis was made as it does not appear that he has a significant smoking history and has been institutionalized his entire life and has been maintained on steroids and bronchodilators and antibiotics with limited improvement for the standpoint of hypoxemia. Laboratory values are notable for a improving but not resolved leukocytosis, with chest imaging notable forpersisent Right opacity with pleural effusion he remains afebrile Past Med Surg Social Fam HX - Past Medical History Medical history: asthma, CHF (Diastolic, chronic respiratory failure), coronary artery disease, diabetes (Not insulin-dependent), hyperlipidemia, myocardial infarction, osteoporosis, other (Chronic: Acute disorder, right pleural effusion , chronic respiratory failure, bipolar, osteopenia, COPD/STEMI, depression) Psychiatric history: anxiety, bipolar, other - Past Surgical History Surgical History: colostomy, other (Extensive abdominal surgery) - Social History Smoking Status: Never smoker Smokeless Tobacco Status: No Alcohol use: none Drug use: none Medications and Allergies Acetaminophen [Tylenol] 650 mg PO Q4HR PRN 04/03/15 [History] Alendronate Sodium [Fosamax] 70 mg PO TH 04/03/15 [History] Atorvastatin [Lipitor] 40 mg PO HS 04/03/15 [History] Calcium Carbonate/Vitamin D2 [Oyster Shell Calcium-Vit D Tab] 1 tab PO DAILY 02/04 [History] Cholecalciferol (Vitamin D3) [Vitamin D3] 1,000 unit PO DAILY 04/03/15 [History] Docusate Sodium [Colace] 200 mg PO BID 04/03/15 [History] FLUoxetine HCl [Prozac] 40 mg PO DAILY 04/03/15 [History] Folic Acid 1 mg PO DAILY 04/03/15 [History] Gemfibrozil [Lopid] 600 mg PO BID 04/03/15 [History] Lisinopril [Zestril] 10 mg PO DAILY 04/03/15 [History] Magnesium Hydroxide [Milk of Magnesia] 30 ml PO DAILY PRN 04/03/15 [History] Metformin HCl [Glucophage] 1,000 mg PO BID 04/03/15 [History] Polyethylene Glycol 3350 [MiraLAX bowel prep] 15 gm PO BID PRN #0 04/03/15 [ History] carBAMazepine [Tegretol] 400 mg PO HS 04/03/15 [History] clonazePAM [Klonopin] 0.5 mg PO BID 04/03/15 [History] Albuterol Neb [Proventil Neb] 2.5 mg IH Q4H PRN 09/22/15 [History] Mag Hydrox/Al Hydrox/Simeth [Adv Antacid-[place] Liquid] 30 ml PO Q4H PRN #0 [History] [facility]-3 Fatty Acids/Fish Oil [[facility]-3 Fish Oil 1,000 mg Sfgl] 1,000 mg PO BID [History] carBAMazepine [Tegretol] 200 mg PO QAM 09/22/15 [History] Cariprazine HCl [Vraylar] 1.5 mg PO HS 09/13/16 [History] Aspirin 81 mg PO DAILY 09/15/16 [History] Loperamide [Imodium] 4 mg PO AD PRN 09/15/16 [History] Metoprolol XL (24 HR) Succ [Toprol Xl] 12.5 mg PO DAILY 09/15/16 [History] Furosemide [Lasix] 60 mg PO DAILY #90 tab 09/17/16 [Rx] Allergies No Known Allergies Allergy (Verified 09/22/15 09:12) All Systems: A 10-system review of systems was performed and is negative for pertinent findings except as documented above in the HPI. Physical Examination Vital Signs: Vital Signs, Last 4 Hours Temp Pulse Resp BP Pulse Ox 09/26/16 12:24 97.7 F 92 20 117/89 96 09/26/16 10:51 24 94 General appearance: no acute distress Eyes: nonicteric ENT: oropharynx moist Neck: supple Effort: normal Auscultation: right: diminished breath sounds, bilateral: rales Cardiovascular: regular rate and rhythm Gastrointestinal: normoactive bowel sounds Extremities: no edema, pink and warm Musculoskeletal: no deformities non-focal exam, pupils equal and round mood appropriate Results - Laboratory Findings CBC and BMP: 09/26/16 01:17 09/26/16 01:17 PT/INR, D-dimer PT 14.8 Seconds (9.4-12.1) H 09/20/16 07:22 Abnormal lab findings: Abnormal lab results WBC 15.5 K/mcL (4.3-11.1) H 09/26/16 01:17 RBC 3.63 M/mcL (4.19-5.50) L 09/26/16 01:17 Hgb 10.9 g/dL (12.9-16.9) L 09/26/16 01:17 Hct 33.4 % (37.5-50.1) L 09/26/16 01:17 RDW 14.7 % (11.5-14.5) H 09/26/16 01:17 Band Neutrophils % 6.0 % (0-4) H 09/26/16 01:17 Metamyelocytes % 2.0 % (0) H 09/25/16 01:18 Promyelocytes % 2.0 % (0) H 09/25/16 01:18 Neutrophils # 12.7 K/mcL (1.6-8.9) H 09/26/16 01:17 ESR 124 mm/hr (0-10) H 09/23/16 05:32 PT 14.8 Seconds (9.4-12.1) H 09/20/16 07:22 Sodium 135 mEq/L (136-145) L 09/26/16 01:17 Potassium 5.9 mEq/L (3.5-4.5) H 09/26/16 01:17 BUN 35 mg/dL (8-26) H 09/26/16 01:17 BUN/Creatinine Ratio 34 (6-26) H 09/26/16 01:17 Glucose 176 mg/dL (70-99) H 09/26/16 01:17 POC Glucose 122 (58-89) H 09/25/16 21:16 C-Reactive Protein 435 mg/L (Less than 5) H 09/23/16 05:32 Albumin 2.4 g/dL (3.5-5.0) L 09/22/16 04:59 Globulin 4.5 g/dL (2.4-3.5) H 09/22/16 04:59 Albumin/Globulin Ratio 0.5 (1.1-2.2) L 09/22/16 04:59 Ur Specific [place] 1.028 (1.010-1.025) H 09/20/16 07:25 Urine Microscopic RBC 3-5 per hpf (0-3) H 09/20/16 07:25 Staphylococcus sp PCR DETECTED (Not Detect) A 09/20/16 07:22 Staph aureus (PCR) DETECTED (Not Detect) A 09/20/16 07:22 - Diagnostic Findings Chest x-ray: report reviewed, image reviewed CT scan - chest: report reviewed, image reviewed - Clinical Findings Intake & Output: Intake & Output 09/25/16 09/26/16 09/26/16 23:59 07:59 15:59 Intake Total 340 / 340 240 / 240 790 / 790 Output Total 1510 / 1510 Balance 340 / 340 -1270 / -1270 790 / 790 Weight 102.1 kg Consult Discharge Plan - Plan Referrals: Edelmira Brennan MD [Partnered Physician] - 10/05/16 11:30 am NONE,PCP [Primary Care Provider] -
[2016-09-26] MEDS: Levofloxacin 750 MG/150 ML 750 MG/150 ML BAG IVPB SCH (14:17)
[2016-09-26 18:58] LABS: BUN/Creatinine Ratio 36 (6-26); Blood Urea Nitrogen 32 mg/dL (8-26); Calcium 9.2 mg/dL (8.6-10.8); Carbon Dioxide 30 mEq/L (19-29); Chloride 96 mEq/L (98-109); Glucose 209 mg/dL (70-99); Magnesium 2.2 mg/dL (1.6-2.6); Osmolality,Calculated 293 (280-300); Potassium 5.2 mEq/L (3.5-4.5); Sodium 135 mEq/L (136-145); eGFR For African Americans > 60 (> 60); eGFR For Non-African Americans > 60 (> 60)
[2016-09-27] MEDS: MethylPREDNISolone 40 MG/ML VIAL IVP SCH (01:55)
[2016-09-27] MEDS: Ipratropium/Albuterol Neb 3 ML IH SCH ×4 (04:43→21:49)
[2016-09-27 05:53] LABS: Hematocrit 33.3 % (37.5-50.1); Hemoglobin 10.4 g/dL (12.9-16.9); Mean Corpuscular HGB Conc 31.2 g/dL (31.6-35.5); Mean Corpuscular Hemoglobin 29.5 pg (28.0-33.3); Mean Corpuscular Volume 94.3 fL (83.0-100.0); Platelet Count 353 K/mcL (140-400); Red Blood Count 3.53 M/mcL (4.19-5.50); Red Cell Distribution Width 15.1 % (11.5-14.5)
[2016-09-27 06:03] LABS: BUN/Creatinine Ratio 35 (6-26); Blood Urea Nitrogen 34 mg/dL (8-26); Calcium 9.1 mg/dL (8.6-10.8); Carbon Dioxide 31 mEq/L (19-29); Chloride 98 mEq/L (98-109); Glucose 124 mg/dL (70-99); Magnesium 2.4 mg/dL (1.6-2.6); Osmolality,Calculated 291 (280-300); Sodium 136 mEq/L (136-145); eGFR For African Americans > 60 (> 60); eGFR For Non-African Americans > 60 (> 60)
[2016-09-27 06:05] LABS: Potassium 5.2 mEq/L (3.5-4.5)
[2016-09-27] MEDS: ceFAZolin 2,000 MG in D5% in Water 100 ML IVPB SCH ×3 (06:05→20:49)
[2016-09-27] MEDS: *HR* Enoxaparin 40 MG/0.4 ML SYRINGE SQ SCH (06:06)
--- NOTE | 2016-09-27 06:45 | Pulmonology Progress Note ---
Date of Encounter: 09/27/16 Time of Encounter: 06:45 Assessment and Plan (1) Pneumonia Current Visit: Yes Status: Acute Impression: 1. Acute Hypoxic Respiratory Failure 2. MSSA PNA 3. Right Pleural Effusion 4. CHF 5. Tracheobronchomalacia Recs: -Cont Chest Physiotherapy, OOBTC, Ambulation if able and tolerated -Treated with ABx clinical improving -Cont IR for drainage send pleural studies for LDH, Total Protien, pH, Cell Count, gram stain/culture, Cholesterol and Glucose -Diuresis with goal negative 1-1.5 liters check renal function and electrolytes daily -Stop IV steroids and Inhaled steroids. Cont Bronchodilators, BiPAP at night. -cont chemical DVT prophylaxis unless contraindication arises. Qualifiers: Pneumonia type: due to unspecified organism Laterality: right Lung location: lower lobe of lung Qualified Code(s): J18.1 - Lobar pneumonia, unspecified organism (2) COPD (chronic obstructive pulmonary disease) Current Visit: Yes Status: Acute Qualifiers: Emphysema type: unspecified Qualified Code(s): J43.9 - Emphysema, unspecified (3) CHF (congestive heart failure) Current Visit: Yes Status: Acute Qualifiers: Congestive heart failure type: diastolic Congestive heart failure chronicity: acute on chronic Qualified Code(s): I50.33 - Acute on chronic diastolic (congestive) heart failure (4) Acute and chronic respiratory failure ([id number]) Current Visit: No Status: Acute Qualifiers: Respiratory failure complication: hypoxia Qualified Code(s): J96.21 - Acute and chronic respiratory failure with hypoxia (5) Sepsis Current Visit: Yes Status: Acute Qualifiers: Sepsis type: sepsis due to unspecified organism Qualified Code(s): A41.9 - Sepsis, unspecified organism Subjective Principal diagnosis: Pneumonia Interval history: Did well overnight. Wore BiPAP O2 has been able to be weaned a bit. He is now up sitting in a chair. Noted to desat quickly without supplemental O2. Objective PUL Vital signs: Last Vital Signs Temp 97.7 F 09/27/16 04:00 Pulse 86 09/27/16 05:00 Resp 24 09/27/16 04:43 BP 112/90 09/27/16 04:00 Pulse Ox 93 09/27/16 04:43 General appearance: no acute distress ENT: oropharynx moist Auscultation: right: diminished breath sounds, bilateral: rales Cardiovascular: regular rate and rhythm Gastrointestinal: normoactive bowel sounds Extremities: edema non-focal exam Results - Laboratory Findings CBC and BMP: 09/27/16 04:40 09/27/16 04:40 PT/INR, D-dimer PT 14.8 Seconds (9.4-12.1) H 09/20/16 07:22 Abnormal lab findings: Abnormal lab results WBC 14.7 K/mcL (4.3-11.1) H 09/27/16 04:40 RBC 3.53 M/mcL (4.19-5.50) L 09/27/16 04:40 Hgb 10.4 g/dL (12.9-16.9) L 09/27/16 04:40 Hct 33.3 % (37.5-50.1) L 09/27/16 04:40 MCHC 31.2 g/dL (31.6-35.5) L 09/27/16 04:40 RDW 15.1 % (11.5-14.5) H 09/27/16 04:40 Band Neutrophils % 6.0 % (0-4) H 09/26/16 01:17 Metamyelocytes % 2.0 % (0) H 09/25/16 01:18 Promyelocytes % 2.0 % (0) H 09/25/16 01:18 Neutrophils # 12.7 K/mcL (1.6-8.9) H 09/26/16 01:17 ESR 124 mm/hr (0-10) H 09/23/16 05:32 PT 14.8 Seconds (9.4-12.1) H 09/20/16 07:22 Potassium 5.2 mEq/L (3.5-4.5) H 09/27/16 04:40 Carbon Dioxide 31 mEq/L (19-29) H 09/27/16 04:40 BUN 34 mg/dL (8-26) H 09/27/16 04:40 BUN/Creatinine Ratio 35 (6-26) H 09/27/16 04:40 Glucose 124 mg/dL (70-99) H 09/27/16 04:40 POC Glucose 210 (58-89) H 09/26/16 16:45 C-Reactive Protein 435 mg/L (Less than 5) H 09/23/16 05:32 Albumin 2.4 g/dL (3.5-5.0) L 09/22/16 04:59 Globulin 4.5 g/dL (2.4-3.5) H 09/22/16 04:59 Albumin/Globulin Ratio 0.5 (1.1-2.2) L 09/22/16 04:59 Ur Specific [place] 1.028 (1.010-1.025) H 09/20/16 07:25 Urine Microscopic RBC 3-5 per hpf (0-3) H 09/20/16 07:25 Staphylococcus sp PCR DETECTED (Not Detect) A 09/20/16 07:22 Staph aureus (PCR) DETECTED (Not Detect) A 09/20/16 07:22 - Clinical Findings Intake & Output: Intake & Output 09/26/16 09/26/16 09/27/16 15:59 23:59 07:59 Intake Total 890 / 890 0 / 0 100 / 100 Output Total 750 / 750 450 / 450 Balance 890 / 890 -750 / -750 -350 / -350 Weight 101.7 kg Consult Discharge Plan - Plan Referrals: Edelmira Brennan MD [Partnered Physician] - 10/05/16 11:30 am NONE,PCP [Primary Care Provider] -
[2016-09-27 07:47] LABS: Eosinophils # 0.3 K/mcL (0.0-0.6); Lymphocytes # 4.1 K/mcL (0.6-4.6); Monocytes # 0.9 K/mcL (0.0-1.3); Neutrophils # 9.4 K/mcL (1.6-8.9); Platelet Estimate Normal (Normal)
[2016-09-27] MEDS: Insulin LISPRO 300 UNITS/3 ML VIAL SQ SCH ×3 (08:35→17:56)
[2016-09-27] MEDS: carBAMazepine 200 MG TABLET PO SCH ×2 (08:44→20:48)
[2016-09-27] MEDS: Metoprolol XL (24 HR) Succ 25 MG TAB.ER.24H PO SCH (08:44)
[2016-09-27] MEDS: Aspirin 81 MG TAB.CHEW PO SCH (08:45)
[2016-09-27] MEDS: Folic Acid 1 MG TABLET PO SCH (08:45)
[2016-09-27] MEDS: clonazePAM 0.5 MG TABLET PO SCH ×2 (08:45→20:48)
[2016-09-27] MEDS: FLUoxetine 20 MG CAPSULE PO SCH (08:45)
[2016-09-27] MEDS: Budesonide Neb 0.5 MG/2 ML IH SCH (11:19)
[2016-09-27] MEDS: Furosemide 20 MG/2 ML VIAL IVP SCH ×2 (12:00→18:02)
[2016-09-27] MEDS ORDERED: Furosemide 20 MG/2 ML VIAL IVP ONE (12:03)
--- NOTE | 2016-09-27 12:05 | Internal Med Progress Note ---
Date of Encounter: 09/27/16 Time of Encounter: 12:03 - Assessment and plan (1) Sepsis Current Visit: Yes Status: Acute Assessment and plan: Improving His blood cx / came back as positive for MSSA- due to PNA His septicemia mostly due to his PNA Repeated blood cx no growth so far He has 2 D Echo done on 09/15/16 - which did not show any valve abnormalities Cont abx to Ancef 2gm Q8hr - # 5/ days course Cont Levofloxacin # 7 cont close monitoring sputum cx - P Qualifiers: Sepsis type: sepsis due to unspecified organism Qualified Code(s): A41.9 - Sepsis, unspecified organism (2) Acute and chronic respiratory failure ([id number]) Current Visit: No Status: Acute Assessment and plan: due to MLL PNA Improving He still has coarse rhonchi and wheezing b/l he is unable to cough out respiratory secretions Cont bronchodilators with Duo Neb Cont him on BiPAP PRN during day time and continuous QHS Cont chest PT Q shift consulted Pulmonary for further eval Since he was on high dose steroids, will taper his steroids slowly He does have inc vasuclar congestion with pleural effusion Started him on IV Lasix 20mg BID Consulted IR for Thoracocentesis will send for fluid analysis Qualifiers: Respiratory failure complication: hypoxia Qualified Code(s): J96.21 - Acute and chronic respiratory failure with hypoxia (3) Pneumonia Current Visit: Yes Status: Acute Assessment and plan: bacterial cont broad spec abx Qualifiers: Pneumonia type: due to unspecified organism Laterality: right Lung location: lower lobe of lung Qualified Code(s): J18.1 - Lobar pneumonia, unspecified organism (4) COPD with exacerbation Current Visit: Yes Status: Acute Assessment and plan: Pt does have COPD exacerbation cont Duoneb and steroids (5) Hyperkalemia Current Visit: Yes Status: Acute Assessment and plan: Better today on Insulin on Albuterol neb avoid any nephrotoxic meds / ACEI (6) Diastolic CHF Current Visit: Yes Status: Chronic Assessment and plan: Not in exacerbation Held Lasix due to his Sepsis resumed other home meds Qualifiers: Qualified Code(s): I50.32 - Chronic diastolic (congestive) heart failure (7) EDDIE (acute kidney injury) Current Visit: Yes Status: Acute Assessment and plan: due to sepsis avoid nephrotoxic meds Improved (8) Diabetes mellitus Current Visit: No Status: Chronic Assessment and plan: Resumed home med Metformin and placed him on ISS Qualifiers: Diabetes mellitus type: type 2 Diabetes mellitus complication status: without complication Diabetes mellitus fpc insulin use: without fpc use Qualified Code(s): E11.9 - Type 2 diabetes mellitus without complications (9) Bipolar 1 disorder Current Visit: No Status: Chronic Assessment and plan: Resumed his home meds (10) DVT prophylaxis Current Visit: No Status: Acute Assessment and plan: on SQ Lovenox - Subjective Interval history: Mr. Lubin is a 71 year old male with a past medical history of chronic respiratory failure, chronic cognitive disorder, right pleural effusion and diastolic CHF who was recently discharged from this hospital on 09/17/2016 where he was seen for diastolic CHF, during his hospitalization his dose of Lasix was increased from 40 60 mg daily. He was transferred back to the emergency room on 09/20/16 saturation of oxygen was 85% with blood cell count is 20.5 glucose 171 chest x-ray shows a new possible right lower lobe infiltrate and a persistent left pleural effusion. Pt was admitted with sepsis and MLL pneumonia. Pt is alert and awake following all the commands, mentation dc seems to be at his baseline. No events over night. He is currently on 4 lit high flow O2.. doing better - Constitutional Vitals: Temp Pulse Resp BP Pulse Ox 98.1 F 84 18 115/77 92 09/27/16 11:08 09/27/16 11:08 09/27/16 11:19 09/27/16 11:08 09/27/16 11:19 General appearance: Present: A&O X 0, mild distress - Neck Neck exam general surgery: Present: supple. Absent: lymphadenopathy - Respiratory Respiratory exam: Present: decreased breath sounds, rales, respiratory distress , wheezes - Cardiovascular Cardiovascular exam: Present: RRR, +S1, +S2. Absent: diastolic murmur, gallop, rubs, systolic murmur - GI/Abdominal GI/Abdominal exam: Present: normal bowel sounds, soft. Absent: rebound, rigid, tenderness Additional comments: Colostomy bag + - Extremities Exam Extremities exam: Present: pedal edema. Absent: calf tenderness, tenderness - Neurological Exam Neurological exam: Present: alert - Psychiatric Psychiatric exam: Present: anxious Internal Medicine: Result - Labs CBC & Chem 7: 09/27/16 04:40 09/27/16 04:40 Labs: Short CBC 09/27/16 Range/Units 04:40 WBC 14.7 H (4.3-11.1) K/mcL Hgb 10.4 L (12.9-16.9) g/dL Hct 33.3 L (37.5-50.1) % Plt Count 353 (140-400) K/mcL Neutrophils # 9.4 H (1.6-8.9) K/mcL BMP 09/26/16 09/27/16 17:54 04:40 Sodium 135 L 136 Potassium 5.2 H 5.2 H Chloride 96 L 98 Carbon Dioxide 30 H 31 H BUN 32 H 34 H Creatinine 0.90 0.97 Glucose 209 H 124 H Calcium 9.2 9.1 - ABG Interpretation ABG results: PT/INR, D-dimer PT 14.8 Seconds (9.4-12.1) H 09/20/16 07:22 - Impressions Impressions Chest X-Ray 09/27/16 06:43 IMPRESSION: Increased pleural-parenchymal disease on the right D/ / Cuco Thorpe MD / Cuco Thorpe MD Interpreting Provider: Cuco Thorpe MD Consult Discharge Plan - Plan Referrals: Edelmira Brennan MD [Partnered Physician] - 10/05/16 11:30 am NONE,PCP [Primary Care Provider] -
--- NOTE | 2016-09-27 13:59 | IR Procedure Note ---
Date of procedure: 09/27/16 Consent Obtained: Verbal consent Timeout: Correct patient and procedure verified, Correct site verified, Time out performed, Skin prep completed Local anesthetic: Lidocaine 1% Indications: Pleural effusion Procedure Performed: Right thoracentesis Site/Technique: Ultrasound guided right thoracentesis Results/Findings: Small right pleural effusion Estimated blood loss (cc): 1 Complications: None; Tolerated procedure well Post Procedure Treatment Plan: Continue inpatient care
[2016-09-27] MEDS: Levofloxacin 750 MG/150 ML 750 MG/150 ML BAG IVPB SCH (15:20)
[2016-09-27 17:09] LABS: Glucose,Pleural Fluid 105 mg/dL (No Ref Range); LDH,Pleural Fluid 542 Units/L (No Ref Range); Total Protein,Pleural Fluid 4.5 g/dL (No Ref Range)
[2016-09-27 17:10] LABS: RBC,Pleural Fluid 0.047 M/mcL
[2016-09-27 17:39] LABS: Appearance of Pleural Fl Hazy (Clear)
[2016-09-28] MEDS: Ipratropium/Albuterol Neb 3 ML IH SCH ×4 (04:02→21:54)
[2016-09-28] MEDS: *HR* Enoxaparin 40 MG/0.4 ML SYRINGE SQ SCH (05:41)
[2016-09-28] MEDS: ceFAZolin 2,000 MG in D5% in Water 100 ML IVPB SCH ×3 (05:41→20:42)
--- NOTE | 2016-09-28 06:44 | Pulmonology Progress Note ---
Date of Encounter: 09/28/16 Time of Encounter: 06:44 Assessment and Plan (1) Pneumonia Current Visit: Yes Status: Acute Impression: 1. Acute Hypoxic Respiratory Failure 2. MSSA PNA 3. Right Pleural Effusion 4. CHF 5. Tracheobronchomalacia Recs: -Cont Chest Physiotherapy, OOBTC, Ambulation if able and tolerated -Treated with ABx clinical improving -Exudative Neutrophilic Predominate effusion likely s/t to PNA f/u Cytology -Cont Diuresis with goal negative 1-1.5 liters check renal function and electrolytes daily -Cont Bronchodilators, BiPAP at night. -Cont chemical DVT prophylaxis unless contraindication arises. Qualifiers: Pneumonia type: due to unspecified organism Laterality: right Lung location: lower lobe of lung Qualified Code(s): J18.1 - Lobar pneumonia, unspecified organism (2) COPD (chronic obstructive pulmonary disease) Current Visit: Yes Status: Acute Qualifiers: Emphysema type: unspecified Qualified Code(s): J43.9 - Emphysema, unspecified (3) CHF (congestive heart failure) Current Visit: Yes Status: Acute Qualifiers: Congestive heart failure type: diastolic Congestive heart failure chronicity: acute on chronic Qualified Code(s): I50.33 - Acute on chronic diastolic (congestive) heart failure (4) Acute and chronic respiratory failure ([id number]) Current Visit: No Status: Acute Qualifiers: Respiratory failure complication: hypoxia Qualified Code(s): J96.21 - Acute and chronic respiratory failure with hypoxia (5) Sepsis Current Visit: Yes Status: Acute Qualifiers: Sepsis type: sepsis due to unspecified organism Qualified Code(s): A41.9 - Sepsis, unspecified organism Subjective Principal diagnosis: Pneumonia Interval history: Did well overnight. No acute issues. Underwent Thoracentesis with 250cc of fluid removed. Able to tolerate easily sitting up in chair. Remains afebrile and hemodynamically stable. Tolerate NC O2 3-4L Objective PUL Vital signs: Last Vital Signs Temp 98.3 F 09/28/16 05:05 Pulse 103 09/28/16 05:05 Resp 19 09/28/16 05:05 BP 121/105 09/28/16 05:05 Pulse Ox 96 09/28/16 05:05 General appearance: no acute distress Auscultation: right: diminished breath sounds, bilateral: rhonchi Cardiovascular: regular rate and rhythm Extremities: edema non-focal exam Results - Laboratory Findings CBC and BMP: 09/27/16 04:40 09/27/16 04:40 PT/INR, D-dimer PT 14.8 Seconds (9.4-12.1) H 09/20/16 07:22 Abnormal lab findings: Abnormal lab results WBC 14.7 K/mcL (4.3-11.1) H 09/27/16 04:40 RBC 3.53 M/mcL (4.19-5.50) L 09/27/16 04:40 Hgb 10.4 g/dL (12.9-16.9) L 09/27/16 04:40 Hct 33.3 % (37.5-50.1) L 09/27/16 04:40 MCHC 31.2 g/dL (31.6-35.5) L 09/27/16 04:40 RDW 15.1 % (11.5-14.5) H 09/27/16 04:40 Metamyelocytes % 2.0 % (0) H 09/25/16 01:18 Promyelocytes % 2.0 % (0) H 09/25/16 01:18 Neutrophils # 9.4 K/mcL (1.6-8.9) H 09/27/16 04:40 ESR 124 mm/hr (0-10) H 09/23/16 05:32 PT 14.8 Seconds (9.4-12.1) H 09/20/16 07:22 Potassium 5.2 mEq/L (3.5-4.5) H 09/27/16 04:40 Carbon Dioxide 31 mEq/L (19-29) H 09/27/16 04:40 BUN 34 mg/dL (8-26) H 09/27/16 04:40 BUN/Creatinine Ratio 35 (6-26) H 09/27/16 04:40 Glucose 124 mg/dL (70-99) H 09/27/16 04:40 POC Glucose 170 (58-89) H 09/27/16 20:43 C-Reactive Protein 435 mg/L (Less than 5) H 09/23/16 05:32 Albumin 2.4 g/dL (3.5-5.0) L 09/22/16 04:59 Globulin 4.5 g/dL (2.4-3.5) H 09/22/16 04:59 Albumin/Globulin Ratio 0.5 (1.1-2.2) L 09/22/16 04:59 Ur Specific [place] 1.028 (1.010-1.025) H 09/20/16 07:25 Urine Microscopic RBC 3-5 per hpf (0-3) H 09/20/16 07:25 Pleural Appearance Hazy (Clear) A 09/27/16 14:20 Pleural RBC 0.047 M/mcL (0.000-0.002) H 09/27/16 14:20 Pleural Tot Nuc Cell 1679 TNC/mcL (0-1000) H 09/27/16 14:20 Staphylococcus sp PCR DETECTED (Not Detect) A 09/20/16 07:22 Staph aureus (PCR) DETECTED (Not Detect) A 09/20/16 07:22 - Microbiology Findings Microbiology Findings: Microbiology, Last 48 Hours 09/27/16 14:20 Body Fluid Culture - Preliminary Pleural Fluid 09/22/16 05:13 Blood Culture - Final Peripheral Venipuncture No growth. 09/22/16 04:59 Blood Culture - Final Peripheral Venipuncture No growth. - Clinical Findings Intake & Output: Intake & Output 09/27/16 09/27/16 09/28/16 15:59 23:59 07:59 Intake Total 720 / 720 830 / 830 0 / 0 Output Total 1325 / 1325 950 / 950 560 / 560 Balance -605 / -605 -120 / -120 -560 / -560 Weight 101.7 kg Consult Discharge Plan - Plan Referrals: Edelmira Brennan MD [Partnered Physician] - 10/05/16 11:30 am NONE,PCP [Primary Care Provider] -
[2016-09-28] MEDS: Insulin LISPRO 300 UNITS/3 ML VIAL SQ SCH ×3 (07:35→16:56)
[2016-09-28] MEDS: carBAMazepine 200 MG TABLET PO SCH ×2 (07:36→20:41)
[2016-09-28] MEDS: FLUoxetine 20 MG CAPSULE PO SCH (07:36)
[2016-09-28] MEDS: Folic Acid 1 MG TABLET PO SCH (07:36)
[2016-09-28] MEDS: Aspirin 81 MG TAB.CHEW PO SCH (07:36)
[2016-09-28] MEDS: Metoprolol XL (24 HR) Succ 25 MG TAB.ER.24H PO SCH (07:36)
[2016-09-28] MEDS: Furosemide 20 MG/2 ML VIAL IVP SCH ×2 (07:37→17:19)
[2016-09-28] MEDS: clonazePAM 0.5 MG TABLET PO SCH ×2 (07:37→20:40)
[2016-09-28] MEDS: predniSONE 20 MG TABLET PO SCH (07:37)
[2016-09-28] MEDS ORDERED: MethylPREDNISolone 40 MG/ML VIAL IVP SCH (09:00)
--- NOTE | 2016-09-28 09:49 | Internal Med Progress Note ---
Date of Encounter: 09/28/16 Time of Encounter: 09:47 - Assessment and plan (1) Sepsis Current Visit: Yes Status: Acute Assessment and plan: Improving His blood cx / came back as positive for MSSA- due to PNA His septicemia mostly due to his PNA Repeated blood cx no growth so far He has 2 D Echo done on 09/15/16 - which did not show any valve abnormalities Cont abx to Ancef 2gm Q8hr - # 6/ days course finished Levofloxacin # 7 cont close monitoring sputum cx - P Qualifiers: Sepsis type: sepsis due to unspecified organism Qualified Code(s): A41.9 - Sepsis, unspecified organism (2) Acute and chronic respiratory failure ([id number]) Current Visit: No Status: Acute Assessment and plan: due to MLL PNA Improving He still has coarse rhonchi and wheezing b/l he is unable to cough out respiratory secretions Cont bronchodilators with Duo Neb Cont him on BiPAP PRN during day time and continuous QHS Cont chest PT Q shift cont taper steroids Cont IV Lasix 20mg BID s/p Thoracocentesis removed nearly 250cc fluid fluid analysis showing more nuclear cells - possible infectious will f/u on cx results - so far no growth Qualifiers: Respiratory failure complication: hypoxia Qualified Code(s): J96.21 - Acute and chronic respiratory failure with hypoxia (3) Pneumonia Current Visit: Yes Status: Acute Assessment and plan: bacterial cont broad spec abx Qualifiers: Pneumonia type: due to unspecified organism Laterality: right Lung location: lower lobe of lung Qualified Code(s): J18.1 - Lobar pneumonia, unspecified organism (4) COPD with exacerbation Current Visit: Yes Status: Acute Assessment and plan: Pt does have COPD exacerbation cont Duoneb and steroids (5) Hyperkalemia Current Visit: Yes Status: Acute Assessment and plan: Better today on Insulin on Albuterol neb avoid any nephrotoxic meds / ACEI (6) Diastolic CHF Current Visit: Yes Status: Chronic Assessment and plan: Not in exacerbation resumed other home meds Qualifiers: Qualified Code(s): I50.32 - Chronic diastolic (congestive) heart failure (7) EDDIE (acute kidney injury) Current Visit: Yes Status: Acute Assessment and plan: due to sepsis avoid nephrotoxic meds Improved (8) Diabetes mellitus Current Visit: No Status: Chronic Assessment and plan: Resumed home med Metformin and placed him on ISS Qualifiers: Diabetes mellitus type: type 2 Diabetes mellitus complication status: without complication Diabetes mellitus lobsterman insulin use: without jail use Qualified Code(s): E11.9 - Type 2 diabetes mellitus without complications (9) Bipolar 1 disorder Current Visit: No Status: Chronic Assessment and plan: Resumed his home meds (10) DVT prophylaxis Current Visit: No Status: Acute Assessment and plan: on SQ Lovenox - Subjective Interval history: Mr. Lubin is a 71 year old male with a past medical history of chronic respiratory failure, chronic cognitive disorder, right pleural effusion and diastolic CHF who was recently discharged from this hospital on 09/17/2016 where he was seen for diastolic CHF, during his hospitalization his dose of Lasix was increased from 40 60 mg daily. He was transferred back to the emergency room on 09/20/16 saturation of oxygen was 85% with blood cell count is 20.5 glucose 171 chest x-ray shows a new possible right lower lobe infiltrate and a persistent left pleural effusion. Pt was admitted with sepsis and MLL pneumonia. Pt is alert and awake following all the commands, mentation dc seems to be at his baseline. No events over night. He is currently on 4 lit high flow O2.. doing better - Constitutional Vitals: Temp Pulse Resp BP Pulse Ox 97.5 F L 89 20 130/72 90 09/28/16 06:58 09/28/16 08:05 09/28/16 06:58 09/28/16 06:58 09/28/16 06:58 General appearance: Present: A&O X 0, mild distress - Head Head exam: Present: atraumatic, normal inspection - Respiratory Respiratory exam: Present: decreased breath sounds, respiratory distress (mild) , rhonchi, wheezes. Absent: rales - Cardiovascular Cardiovascular exam: Present: RRR, +S1, +S2. Absent: diastolic murmur, gallop, rubs, systolic murmur - GI/Abdominal GI/Abdominal exam: Present: normal bowel sounds, soft. Absent: rebound, rigid, tenderness - Extremities Exam Extremities exam: Present: pedal edema (traceble). Absent: calf tenderness, tenderness - Psychiatric Psychiatric exam: Present: anxious Internal Medicine: Result - Labs CBC & Chem 7: 09/27/16 04:40 09/27/16 04:40 - ABG Interpretation ABG results: PT/INR, D-dimer PT 14.8 Seconds (9.4-12.1) H 09/20/16 07:22 - Impressions Impressions Thoracentesis Ultrasound 09/27/16 00:00 IMPRESSION: Successful ultrasound guided thoracentesis. D/ / Damián Bhatti MD / Damián Bhatti MD Interpreting Provider: Damián Bhatti MD Chest X-Ray 09/27/16 13:10 IMPRESSION: 1. Status post right thoracentesis. There is improved right effusion with persistent right lung base consolidation. 2. Stable patchy bilateral perihilar and medial left lower lobe reticular nodular densities which may represent interstitial edema or possible bronchitis/bronchiolitis. D/ / 09/27/2016 13:46:03 Damon Rain MD / sixto Interpreting Provider: Damon Rain MD Consult Discharge Plan - Plan Referrals: Edelmira Brennan MD [Partnered Physician] - 10/05/16 11:30 am NONE,PCP [Primary Care Provider] -
[2016-09-28 09:51] LABS: Hemoglobin 11.3 g/dL (12.9-16.9); Immature Platelets 2.7 % (1.1-6.1); Mean Corpuscular HGB Conc 32.3 g/dL (31.6-35.5); Mean Corpuscular Volume 92.8 fL (83.0-100.0); Mean Platelet Volume 9.5 fL (9.4-12.4); Monocytes # 0.6 K/mcL (0.0-1.3); Platelet Count 384 K/mcL (140-400); Red Blood Count 3.77 M/mcL (4.19-5.50)
[2016-09-28 10:03] LABS: BUN/Creatinine Ratio 31 (6-26); Blood Urea Nitrogen 32 mg/dL (8-26); Calcium 8.7 mg/dL (8.6-10.8); Carbon Dioxide 30 mEq/L (19-29); Chloride 97 mEq/L (98-109); Glucose 225 mg/dL (70-99); Osmolality,Calculated 294 (280-300); Potassium 4.5 mEq/L (3.5-4.5); Sodium 135 mEq/L (136-145); eGFR For African Americans > 60 (> 60); eGFR For Non-African Americans > 60 (> 60)
[2016-09-28 10:13] LABS: Eosinophils # 0.3 K/mcL (0.0-0.6); Lymphocytes # 2.5 K/mcL (0.6-4.6); Neutrophils # 10.6 K/mcL (1.6-8.9)
[2016-09-28 10:14] LABS: Platelet Estimate Normal (Normal)
[2016-09-29 05:23] LABS: Hematocrit 32.9 % (37.5-50.1); Hemoglobin 10.7 g/dL (12.9-16.9); Mean Corpuscular HGB Conc 32.5 g/dL (31.6-35.5); Mean Corpuscular Hemoglobin 30.1 pg (28.0-33.3); Mean Corpuscular Volume 92.4 fL (83.0-100.0); Mean Platelet Volume 9.4 fL (9.4-12.4); Platelet Count 337 K/mcL (140-400); Red Blood Count 3.56 M/mcL (4.19-5.50); Red Cell Distribution Width 14.9 % (11.5-14.5)
[2016-09-29] MEDS: ceFAZolin 2,000 MG in D5% in Water 100 ML IVPB SCH ×3 (05:41→21:18)
[2016-09-29 05:43] LABS: BUN/Creatinine Ratio 34 (6-26); Blood Urea Nitrogen 30 mg/dL (8-26); Calcium 8.6 mg/dL (8.6-10.8); Carbon Dioxide 30 mEq/L (19-29); Chloride 98 mEq/L (98-109); Glucose 126 mg/dL (70-99); Magnesium 2.2 mg/dL (1.6-2.6); Osmolality,Calculated 290 (280-300); Potassium 4.4 mEq/L (3.5-4.5); Sodium 136 mEq/L (136-145); eGFR For African Americans > 60 (> 60); eGFR For Non-African Americans > 60 (> 60)
[2016-09-29 06:09] LABS: Eosinophils # 0.3 K/mcL (0.0-0.6); Lymphocytes # 4.2 K/mcL (0.6-4.6); Monocytes # 0.5 K/mcL (0.0-1.3); Neutrophils # 7.9 K/mcL (1.6-8.9); Platelet Estimate Normal (Normal)
[2016-09-29] MEDS: Ipratropium/Albuterol Neb 3 ML IH SCH ×4 (06:26→22:03)
[2016-09-29] MEDS: *HR* Enoxaparin 40 MG/0.4 ML SYRINGE SQ SCH (06:49)
[2016-09-29] MEDS: Insulin LISPRO 300 UNITS/3 ML VIAL SQ SCH ×3 (08:22→17:30)
[2016-09-29] MEDS: clonazePAM 0.5 MG TABLET PO SCH ×2 (08:25→21:19)
[2016-09-29] MEDS: predniSONE 20 MG TABLET PO SCH (08:25)
[2016-09-29] MEDS: carBAMazepine 200 MG TABLET PO SCH ×2 (08:25→21:19)
[2016-09-29] MEDS: Metoprolol XL (24 HR) Succ 25 MG TAB.ER.24H PO SCH (08:25)
[2016-09-29] MEDS: Folic Acid 1 MG TABLET PO SCH (08:25)
[2016-09-29] MEDS: FLUoxetine 20 MG CAPSULE PO SCH (08:25)
[2016-09-29] MEDS: Aspirin 81 MG TAB.CHEW PO SCH (08:26)
[2016-09-29] MEDS: Furosemide 20 MG/2 ML VIAL IVP SCH ×2 (08:26→17:30)
--- NOTE | 2016-09-29 12:59 | Pulmonology Progress Note ---
Date of Encounter: 09/29/16 Time of Encounter: 12:59 Assessment and Plan (1) Pneumonia Current Visit: Yes Status: Acute Impression: 1. Acute Hypoxic Respiratory Failure 2. MSSA PNA 3. Right Pleural Effusion 4. CHF 5. Tracheobronchomalacia Recs: -Cont Chest Physiotherapy, OOBTC, Ambulation if able and tolerated. O2 has been weaned off -Treated with ABx clinically has improved -Likely s/t to PNA. Cytology negative for malignancy -Cont Diuresis per medicine service -Cont Bronchodilators -Cont chemical DVT prophylaxis unless contraindication arises. Pulmonary will sign off please call with questions. Thank you for the Consult. Qualifiers: Pneumonia type: due to unspecified organism Laterality: right Lung location: lower lobe of lung Qualified Code(s): J18.1 - Lobar pneumonia, unspecified organism (2) COPD (chronic obstructive pulmonary disease) Current Visit: Yes Status: Acute Qualifiers: Emphysema type: unspecified Qualified Code(s): J43.9 - Emphysema, unspecified (3) CHF (congestive heart failure) Current Visit: Yes Status: Acute Qualifiers: Congestive heart failure type: diastolic Congestive heart failure chronicity: acute on chronic Qualified Code(s): I50.33 - Acute on chronic diastolic (congestive) heart failure (4) Acute and chronic respiratory failure ([id number]) Current Visit: No Status: Acute Qualifiers: Respiratory failure complication: hypoxia Qualified Code(s): J96.21 - Acute and chronic respiratory failure with hypoxia (5) Sepsis Current Visit: Yes Status: Acute Qualifiers: Sepsis type: sepsis due to unspecified organism Qualified Code(s): A41.9 - Sepsis, unspecified organism Subjective Principal diagnosis: Pneumonia Interval history: Patient continues to do well he has been weaned off supplemental oxygen has been noted to be ambulating around the hospital [facility] Objective PUL Vital signs: Last Vital Signs Temp 97.4 F L 09/29/16 07:37 Pulse 108 09/29/16 07:37 Resp 19 09/29/16 07:37 BP 119/89 09/29/16 07:37 Pulse Ox 93 09/29/16 11:26 General appearance: no acute distress Auscultation: right: diminished breath sounds Cardiovascular: regular rate and rhythm Extremities: edema non-focal exam Results - Laboratory Findings CBC and BMP: 09/29/16 05:12 09/29/16 05:12 PT/INR, D-dimer PT 14.8 Seconds (9.4-12.1) H 09/20/16 07:22 Abnormal lab findings: Abnormal lab results WBC 13.1 K/mcL (4.3-11.1) H 09/29/16 05:12 RBC 3.56 M/mcL (4.19-5.50) L 09/29/16 05:12 Hgb 10.7 g/dL (12.9-16.9) L 09/29/16 05:12 Hct 32.9 % (37.5-50.1) L 09/29/16 05:12 RDW 14.9 % (11.5-14.5) H 09/29/16 05:12 Band Neutrophils % 6.0 % (0-4) H 09/28/16 09:42 Metamyelocytes % 2.0 % (0) H 09/25/16 01:18 Myelocytes % 2.0 % (0) H 09/29/16 05:12 Promyelocytes % 2.0 % (0) H 09/25/16 01:18 ESR 124 mm/hr (0-10) H 09/23/16 05:32 PT 14.8 Seconds (9.4-12.1) H 09/20/16 07:22 Carbon Dioxide 30 mEq/L (19-29) H 09/29/16 05:12 BUN 30 mg/dL (8-26) H 09/29/16 05:12 BUN/Creatinine Ratio 34 (6-26) H 09/29/16 05:12 Glucose 126 mg/dL (70-99) H 09/29/16 05:12 POC Glucose 123 (58-89) H 09/28/16 16:11 C-Reactive Protein 435 mg/L (Less than 5) H 09/23/16 05:32 Albumin 2.4 g/dL (3.5-5.0) L 09/22/16 04:59 Globulin 4.5 g/dL (2.4-3.5) H 09/22/16 04:59 Albumin/Globulin Ratio 0.5 (1.1-2.2) L 09/22/16 04:59 Ur Specific [place] 1.028 (1.010-1.025) H 09/20/16 07:25 Urine Microscopic RBC 3-5 per hpf (0-3) H 09/20/16 07:25 Pleural Appearance Hazy (Clear) A 09/27/16 14:20 Pleural RBC 0.047 M/mcL (0.000-0.002) H 09/27/16 14:20 Pleural Tot Nuc Cell 1679 TNC/mcL (0-1000) H 09/27/16 14:20 Staphylococcus sp PCR DETECTED (Not Detect) A 09/20/16 07:22 Staph aureus (PCR) DETECTED (Not Detect) A 09/20/16 07:22 - Microbiology Findings Microbiology Findings: Microbiology, Last 48 Hours 09/27/16 14:20 Body Fluid Culture - Preliminary Pleural Fluid - Clinical Findings Intake & Output: Intake & Output 09/28/16 09/29/16 09/29/16 23:59 07:59 15:59 Intake Total 440 / 440 100 / 100 240 / 240 Output Total 1000 / 1000 600 / 600 675 / 675 Balance -560 / -560 -500 / -500 -435 / -435 Weight 101.7 kg Consult Discharge Plan - Plan Referrals: Edelmira Brennan MD [Partnered Physician] - (DR. BRENNAN SEES PATIENT AT THE LONG-TERM) NONE,PCP [Primary Care Provider] -
--- NOTE | 2016-09-29 13:28 | Internal Med Progress Note ---
Date of Encounter: 09/29/16 Time of Encounter: 13:27 - Assessment and plan (1) Sepsis Current Visit: Yes Status: Acute Assessment and plan: Improving His blood cx 05/24 came back as positive for MSSA- due to PNA His septicemia mostly due to his PNA Repeated blood cx no growth so far He has 2 D Echo done on 09/15/16 - which did not show any valve abnormalities Cont abx to Ancef 2gm Q8hr - # 08/29 days course finished Levofloxacin # 08/26 cont close monitoring sputum cx -no gorwth dispo: Possible d/c back to jail in AM with PO Abx Will do over night pulse oxy study for non invasive pressure ventilation Qualifiers: Sepsis type: sepsis due to unspecified organism Qualified Code(s): A41.9 - Sepsis, unspecified organism (2) Acute and chronic respiratory failure ([id number]) Current Visit: No Status: Acute Assessment and plan: due to MLL PNA Improving He still has coarse rhonchi and wheezing b/l he is unable to cough out respiratory secretions Cont bronchodilators with Duo Neb Cont him on BiPAP PRN during day time and continuous QHS Cont chest PT Q shift cont tapering steroids Cont IV Lasix 20mg BID for now.. will switch to PO in AM s/p Thoracocentesis removed nearly 250cc fluid fluid analysis showing more nuclear cells - possible infectious Fluid cx results - so far no growth Qualifiers: Respiratory failure complication: hypoxia Qualified Code(s): J96.21 - Acute and chronic respiratory failure with hypoxia (3) Pneumonia Current Visit: Yes Status: Acute Assessment and plan: bacterial cont broad spec abx Qualifiers: Pneumonia type: due to unspecified organism Laterality: right Lung location: lower lobe of lung Qualified Code(s): J18.1 - Lobar pneumonia, unspecified organism (4) COPD with exacerbation Current Visit: Yes Status: Acute Assessment and plan: Pt does have COPD exacerbation cont Duoneb and steroids (5) Hyperkalemia Current Visit: Yes Status: Acute Assessment and plan: Better today on Insulin on Albuterol neb avoid any nephrotoxic meds / ACEI (6) Diastolic CHF Current Visit: Yes Status: Chronic Assessment and plan: Not in exacerbation resumed other home meds Qualifiers: Qualified Code(s): I50.32 - Chronic diastolic (congestive) heart failure (7) EDDIE (acute kidney injury) Current Visit: Yes Status: Acute Assessment and plan: due to sepsis avoid nephrotoxic meds Improved (8) Diabetes mellitus Current Visit: No Status: Chronic Assessment and plan: Resumed home med Metformin and placed him on ISS Qualifiers: Diabetes mellitus type: type 2 Diabetes mellitus complication status: without complication Diabetes mellitus fpc insulin use: without fpc use Qualified Code(s): E11.9 - Type 2 diabetes mellitus without complications (9) Bipolar 1 disorder Current Visit: No Status: Chronic Assessment and plan: Resumed his home meds (10) DVT prophylaxis Current Visit: No Status: Acute Assessment and plan: on SQ Lovenox - Subjective Interval history: Mr. Lubin is a 71 year old male with a past medical history of chronic respiratory failure, chronic cognitive disorder, right pleural effusion and diastolic CHF who was recently discharged from this hospital on 09/17/2016 where he was seen for diastolic CHF, during his hospitalization his dose of Lasix was increased from 40 60 mg daily. He was transferred back to the emergency room on 09/20/16 saturation of oxygen was 85% with blood cell count is 20.5 glucose 171 chest x-ray shows a new possible right lower lobe infiltrate and a persistent left pleural effusion. Pt was admitted with sepsis and MLL pneumonia. Pt is alert and awake following all the commands, mentation dc seems to be at his baseline. No events over night. He is currently breathing comfortably on RA.. doing better - Constitutional Vitals: Temp Pulse Resp BP Pulse Ox 97.4 F L 108 19 119/89 93 09/29/16 07:37 09/29/16 07:37 09/29/16 07:37 09/29/16 07:37 09/29/16 11:26 General appearance: Present: A&O X 0, no acute distress - Head Head exam: Present: atraumatic, normal inspection - Respiratory Respiratory exam: Present: decreased breath sounds, wheezes. Absent: rales, respiratory distress, rhonchi - Cardiovascular Cardiovascular exam: Present: RRR, +S1, +S2 - GI/Abdominal GI/Abdominal exam: Present: normal bowel sounds, soft. Absent: rebound, rigid - Extremities Exam Extremities exam: Present: pedal edema (trace). Absent: calf tenderness, tenderness - Psychiatric Psychiatric exam: Present: anxious Internal Medicine: Result - Labs CBC & Chem 7: 09/29/16 05:12 09/29/16 05:12 Labs: Short CBC 09/29/16 Range/Units 05:12 WBC 13.1 H (4.3-11.1) K/mcL Hgb 10.7 L (12.9-16.9) g/dL Hct 32.9 L (37.5-50.1) % Plt Count 337 (140-400) K/mcL Neutrophils # 7.9 (1.6-8.9) K/mcL BMP 09/29/16 05:12 Sodium 136 Potassium 4.4 Chloride 98 Carbon Dioxide 30 H BUN 30 H Creatinine 0.87 Glucose 126 H Calcium 8.6 - ABG Interpretation ABG results: PT/INR, D-dimer PT 14.8 Seconds (9.4-12.1) H 09/20/16 07:22 Consult Discharge Plan - Plan Referrals: Edelmira Brennan MD [Partnered Physician] - (DR. BRENNAN SEES PATIENT AT THE LONG TERM) NONE,PCP [Primary Care Provider] -
[2016-09-30] MEDS: Ipratropium/Albuterol Neb 3 ML IH SCH ×2 (04:31→10:52)
[2016-09-30] MEDS: ceFAZolin 2,000 MG in D5% in Water 100 ML IVPB SCH ×2 (06:15→13:24)
[2016-09-30] MEDS: *HR* Enoxaparin 40 MG/0.4 ML SYRINGE SQ SCH (06:15)
[2016-09-30] MEDS: Folic Acid 1 MG TABLET PO SCH (08:25)
[2016-09-30] MEDS: carBAMazepine 200 MG TABLET PO SCH (08:25)
[2016-09-30] MEDS: Metoprolol XL (24 HR) Succ 25 MG TAB.ER.24H PO SCH (08:25)
[2016-09-30] MEDS: Aspirin 81 MG TAB.CHEW PO SCH (08:25)
[2016-09-30] MEDS: clonazePAM 0.5 MG TABLET PO SCH (08:25)
[2016-09-30] MEDS: Insulin LISPRO 300 UNITS/3 ML VIAL SQ SCH ×2 (08:26→12:14)
[2016-09-30] MEDS: Furosemide 20 MG/2 ML VIAL IVP SCH (08:26)
[2016-09-30] MEDS: FLUoxetine 20 MG CAPSULE PO SCH (08:26)
[2016-09-30] MEDS: predniSONE 20 MG TABLET PO SCH (08:26)
--- NOTE | 2016-09-30 10:13 | Discharge Summary ---
Date of Encounter: 09/30/16 Time of Encounter: 08:00 - Discharge Diagnosis (1) Sepsis Priority: Primary Status: Resolved Qualifiers: Sepsis type: sepsis due to unspecified organism Qualified Code(s): A41.9 - Sepsis, unspecified organism (2) Acute and chronic respiratory failure ([id number]) Priority: Primary Status: Acute Qualifiers: Respiratory failure complication: hypoxia Qualified Code(s): J96.21 - Acute and chronic respiratory failure with hypoxia (3) Pneumonia Priority: Primary Status: Acute Qualifiers: Pneumonia type: due to unspecified organism Laterality: right Lung location: lower lobe of lung Qualified Code(s): J18.1 - Lobar pneumonia, unspecified organism (4) COPD with exacerbation Priority: Secondary Status: Acute (5) Hyperkalemia Priority: Secondary Status: Resolved (6) Diastolic CHF Priority: Secondary Status: Chronic Qualifiers: Qualified Code(s): I50.32 - Chronic diastolic (congestive) heart failure (7) EDDIE (acute kidney injury) Priority: Secondary Status: Acute (8) Diabetes mellitus Priority: Secondary Status: Chronic Qualifiers: Diabetes mellitus type: type 2 Diabetes mellitus complication status: without complication Diabetes mellitus retirement insulin use: without director of quality improvement use Qualified Code(s): E11.9 - Type 2 diabetes mellitus without complications (9) Bipolar 1 disorder Priority: Secondary Status: Chronic - Discharge Medications Prescriptions: Levofloxacin [Levaquin] 500 mg PO DAILY #2 tablet predniSONE [PredniSONE] 30 mg PO DAILY #6 tab Home Medications: Acetaminophen [Tylenol] 650 mg PO Q4HR PRN 04/03/15 [History] Alendronate Sodium [Fosamax] 70 mg PO TH 04/03/15 [History] Atorvastatin [Lipitor] 40 mg PO HS 04/03/15 [History] Calcium Carbonate/Vitamin D2 [Oyster Shell Calcium-Vit D Tab] 1 tab PO DAILY 02/04 [History] Cholecalciferol (Vitamin D3) [Vitamin D3] 1,000 unit PO DAILY 04/03/15 [History] Docusate Sodium [Colace] 200 mg PO BID 04/03/15 [History] FLUoxetine HCl [Prozac] 40 mg PO DAILY 04/03/15 [History] Folic Acid 1 mg PO DAILY 04/03/15 [History] Gemfibrozil [Lopid] 600 mg PO BID 04/03/15 [History] Lisinopril [Zestril] 10 mg PO DAILY 04/03/15 [History] Magnesium Hydroxide [Milk of Magnesia] 30 ml PO DAILY PRN 04/03/15 [History] Metformin HCl [Glucophage] 1,000 mg PO BID 04/03/15 [History] Polyethylene Glycol 3350 [MiraLAX bowel prep] 15 gm PO BID PRN #0 04/03/15 [ History] carBAMazepine [Tegretol] 400 mg PO HS 04/03/15 [History] clonazePAM [Klonopin] 0.5 mg PO BID 04/03/15 [History] Albuterol Neb [Proventil Neb] 2.5 mg IH Q4H PRN 09/22/15 [History] Mag Hydrox/Al Hydrox/Simeth [Adv Antacid-Antigas Liquid] 30 ml PO Q4H PRN #0 [History] [place]-3 Fatty Acids/Fish Oil [[place]-3 Fish Oil 1,000 mg Sfgl] 1,000 mg PO BID [History] carBAMazepine [Tegretol] 200 mg PO QAM 09/22/15 [History] Cariprazine HCl [Vraylar] 1.5 mg PO HS 09/13/16 [History] Aspirin 81 mg PO DAILY 09/15/16 [History] Loperamide [Imodium] 4 mg PO AD PRN 09/15/16 [History] Metoprolol XL (24 HR) Succ [Toprol Xl] 12.5 mg PO DAILY 09/15/16 [History] Furosemide [Lasix] 40 mg PO DAILY #90 tab 09/30/16 [Rx] Ipratropium/Albuterol Neb [Duoneb] 3 ml IH [id number] PRN inh 09/30/16 [Rx] Levofloxacin [Levaquin] 500 mg PO DAILY #2 tablet 09/30/16 [Rx] predniSONE [PredniSONE] 30 mg PO DAILY #6 tab 09/30/16 [Rx] Allergies/Adverse Reactions: Allergies No Known Allergies Allergy (Verified 09/22/15 09:12) Date of admission: 09/20/16 10:18 Primary care physician: PCP NONE Consults: 09/26/16 13:00 Consult to Pulmonology [CONS] Routine Consulting Provider: Pul[facility] Reason for Consult: Acute respiratoryf ailure - MLL PNA Call Completed: Yes 09/27/16 12:10 Consult to Interventional Radiology [CONS] Routine Consulting Provider: Radiology Harika Caba Reason for Consult: Thoracocentesis for Rt pleural effuison Call Completed: No 09/28/16 14:07 PT [Consult to Physical Therapy] [CONS] Routine Comment: Evaluate, develop and implement POC Reason for Consult: evaluate for d/c 09/28/16 14:08 OT [Consult to Occupational Therapy] [CONS] Routine Comment: Evaluate, develop and implement POC Reason for Consult: evaluate for d/c - Patient Status Disposition: Home Health Service Condition: Good Overall status at discharge: patient is back to baseline - Discharge Instructions Follow Up With: Edelmira Perry MD [Partnered Physician] - (DR. PERRY SEES PATIENT AT THE ALF) NONE,PCP [Primary Care Provider] - Additional Instructions: Need to f.u with Band Manager in 1-2 weeks Need to f/u with PCP in 1 week - Diet and Activity Activity: increase activity as tolerated Diet: low salt diet Hospital course: Mr. Lubin is a 71 year old male with a past medical history of chronic respiratory failure, chronic cognitive disorder, right pleural effusion and diastolic CHF who was recently discharged from this hospital on 09/17/2016 where he was seen for diastolic CHF, during his hospitalization his dose of Lasix was increased from 40 60 mg daily. He was transferred back to the emergency room on 09/20/16 saturation of oxygen was 85% with blood cell count is 20.5 glucose 171 chest x-ray shows a new possible right lower lobe infiltrate and a persistent left pleural effusion. Pt was admitted with sepsis and MLL pneumonia. Pt was required BiPAP initially continuously for a couple of days. he was started on broad spec abx Cefepim, Levofloxacin and Vancomycin initially. Later his blood cx cams back as positive for MSSA so changed abx to Ancef 2gm TID and Continued Levofloxacin. He was still required high flow O2 , he was not able to cough out secretions, so started him on frequent chest PT. Also consulted Pulmonary for further evaluation. Band Manager did not recommend any bronchoscope, however he requested for thoracocentesis on Rt side. IR did perform thoracocentesis on Rt side and removed 400 cc of fluid. Fluid cx came back as no growth. His pleural fluid analysis showed more like exudates from pneumonia. So will finish 10 days of Abx course. Recommend him to take 2 more days PO Levofloxacin. Also pt had over night BiPAP study done, he does required BiPAP. So will arrange for BiPAP to use at bed time when he goes back to custodial. Will d/c him back to custodial today. He also does require 2 Lit O2 continuously. - Time Spent with Patient Total time spent providing and/or coordinating discharge services: Greater than 30 minutes (Spent 45 minutes on this patient's discharge summary due to complex medical problems and patient needed a lot of education regarding discharge instructions) - Constitutional Vitals: Temp Pulse Resp BP Pulse Ox 98.0 F 83 20 121/76 94 09/30/16 07:16 09/30/16 07:16 09/30/16 07:16 09/30/16 07:16 09/30/16 07:16 General appearance: Present: A&O X 0, no acute distress - Head Head exam: Present: atraumatic, normal inspection - Neck Neck exam general surgery: Present: supple - Respiratory Respiratory exam: Present: decreased breath sounds, wheezes. Absent: rales, respiratory distress, rhonchi - Cardiovascular Cardiovascular exam: Present: RRR, +S1, +S2. Absent: systolic murmur - GI/Abdominal GI/Abdominal exam: Present: normal bowel sounds, soft. Absent: rebound, rigid - Extremities Exam Extremities exam: Present: pedal edema (trace). Absent: calf tenderness, tenderness - Psychiatric Psychiatric exam: Present: anxious
[2016-09-30 11:39] VITALS: BP 122/79
== END 2016-09-30 16:06 | DRG 871 ==
LOC: 2NNU 07:02 → EMEROO 07:02 → 2NNU 10:05
PROVIDERS: ADMIT Internal Medicine; ATTEND Internal Medicine

== ENCOUNTER 2016-10-02 12:32 | Inpatient (IN) ==
[2016-10-02] MEDS ORDERED: Furosemide 40 MG/4 ML VIAL IVP ONE (12:41)
[2016-10-02 12:59] LABS: Basophils % 0.3 %; Eosinophils % 0.1 %; Hematocrit 34.4 % (37.5-50.1); Hemoglobin 10.9 g/dL (12.9-16.9); Immature Granulocytes % 1.9 % (0-4); Lymphocytes # 0.8 K/mcL (0.6-4.6); Lymphocytes % 5.4 %; Mean Corpuscular HGB Conc 31.7 g/dL (31.6-35.5); Mean Corpuscular Hemoglobin 29.4 pg (28.0-33.3); Mean Corpuscular Volume 92.7 fL (83.0-100.0); Mean Platelet Volume 9.3 fL (9.4-12.4); Monocytes # 0.4 K/mcL (0.0-1.3); Monocytes % 2.9 %; Neutrophils # 13.2 K/mcL (1.6-8.9); Platelet Count 374 K/mcL (140-400); Red Blood Count 3.71 M/mcL (4.19-5.50); Segmented Neutrophils % 89.4 %
[2016-10-02 13:04] LABS: INR 1.5; Prothrombin Time 16.3 Seconds (9.4-12.1)
[2016-10-02 13:07] LABS: Activated Partial Thrombo Time 37.8 Seconds (26.0-36.0)
[2016-10-02 13:11] LABS: BUN/Creatinine Ratio 26 (6-26); Blood Urea Nitrogen 22 mg/dL (8-26); Carbon Dioxide 26 mEq/L (19-29); Chloride 99 mEq/L (98-109); Glucose 129 mg/dL (70-99); Osmolality,Calculated 283 (280-300); Potassium 4.7 mEq/L (3.5-4.5); Sodium 134 mEq/L (136-145); eGFR For African Americans > 60 (> 60); eGFR For Non-African Americans > 60 (> 60)
[2016-10-02 13:14] LABS: Alanine Aminotransferase < 6 Units/L (0-55); Albumin 2.6 g/dL (3.5-5.0); Albumin/Globulin Ratio 0.5 (1.1-2.2); Alkaline Phosphatase 187 Units/L (38-126); Aspartate Amino Transferase 15 Units/L (5-34); Bilirubin,Direct 0.2 mg/dL (0.0-0.5); Bilirubin,Indirect 0.3 mg/dL (0.0-1.2); Bilirubin,Total 0.5 mg/dL (0.2-1.2); Globulin 5.2 g/dL (2.4-3.5); Lipase 33 Units/L (8-78); Total Protein 7.8 g/dL (6.0-8.3)
--- NOTE | 2016-10-02 13:46 | Emergency Department Note ---
Disposition Clinical Impression: HCAP (healthcare-associated pneumonia) Disposition: Admitted As Inpatient Condition: Good Referrals: NONE,PCP [Non-Partnered Physician] - Forms: ED Satisfaction Letter Time of Disposition: 14:28 SOB HPI - General Chief Complaint: ED Shortness of Breath/Dyspnea Stated Complaint: laurie Time Seen by Provider: 10/02/16 12:40 Source: EMS Mode of arrival: other (detention nurse) Limitations: other (MRDD; poor historian repeats phrases) Nursing Notes Reviewed: Yes Vital Signs Reviewed: Yes - History of Present Illness 71 year old male was sent to our facility from the detention with a low 02 of the low 80s. Tadeo wears 3LNC at home at all time and jamin ponce had an admission to the hospital about two weeks ago for CHF excerbation. Patient is a poor historian and cannot give any informatio. Upon speakig to his detention nurse she states that he was suppose to be jose bipap at night for his CHF but they have been having difficulty obtaining one for him and has followup with a lead inspector in the next week. Today he got up to have breakfast and has intermitmently been using his oxygen at the detention and while he was eating breakgast they noticed that soon there after he have dropped his 02 saturdatin level to the low 80s which is concerned him and then they sent him here for evaluation. Difficult to assess ROS due to patient repeaedly saying "garcia is right." - Related Data Home Medications Medication Instructions Recorded Confirmed Acetaminophen [Tylenol] 650 mg PO Q4HR PRN 04/03/15 09/20/16 Alendronate Sodium [Fosamax] 70 mg PO TH 04/03/15 09/20/16 Atorvastatin [Lipitor] 40 mg PO HS 04/03/15 09/20/16 Calcium Carbonate/Vitamin D2 1 tab PO DAILY 04/03/15 09/20/16 [Oyster Shell Calcium-Vit D Tab] Cholecalciferol (Vitamin D3) 1,000 unit PO DAILY 04/03/15 09/20/16 [Vitamin D3] Docusate Sodium [Colace] 200 mg PO BID 04/03/15 09/20/16 FLUoxetine HCl [Prozac] 40 mg PO DAILY 04/03/15 09/20/16 Folic Acid 1 mg PO DAILY 04/03/15 09/20/16 Gemfibrozil [Lopid] 600 mg PO BID 04/03/15 09/20/16 Lisinopril [Zestril] 10 mg PO DAILY 04/03/15 09/20/16 Magnesium Hydroxide [Milk of 30 ml PO DAILY PRN 04/03/15 09/20/16 Magnesia] Metformin HCl [Glucophage] 1,000 mg PO BID 04/03/15 09/20/16 Polyethylene Glycol 3350 [MiraLAX 15 gm PO BID PRN #0 04/03/15 09/20/16 bowel prep] carBAMazepine [Tegretol] 400 mg PO HS 04/03/15 09/20/16 clonazePAM [Klonopin] 0.5 mg PO BID 04/03/15 09/20/16 Albuterol Neb [Proventil Neb] 2.5 mg IH Q4H PRN 09/22/15 09/20/16 Mag Hydrox/Al Hydrox/Simeth [Adv 30 ml PO Q4H PRN #0 09/22/15 09/20/16 Antacid-Antigas Liquid] [place]-3 Fatty Acids/Fish Oil 1,000 mg PO BID 09/22/15 09/20/16 [[place]-3 Fish Oil 1,000 mg Sfgl] carBAMazepine [Tegretol] 200 mg PO QAM 09/22/15 09/20/16 Cariprazine HCl [Vraylar] 1.5 mg PO HS 09/13/16 09/20/16 Aspirin 81 mg PO DAILY 09/15/16 09/20/16 Loperamide [Imodium] 4 mg PO AD PRN 09/15/16 09/20/16 Metoprolol XL (24 HR) Succ [Toprol 12.5 mg PO DAILY 09/15/16 09/20/16 Xl] Previous Rx's Medication Instructions Recorded Furosemide [Lasix] 40 mg PO DAILY #90 tab 09/30/16 Ipratropium/Albuterol Neb [Duoneb] 3 ml IH [id number] PRN inh 09/30/16 Levofloxacin [Levaquin] 500 mg PO DAILY #2 tablet 09/30/16 predniSONE [PredniSONE] 30 mg PO DAILY #6 tab 09/30/16 Allergies Allergy/AdvReac Type Severity Reaction Status Date / Time No Known Allergies Allergy Verified 09/22/15 09:12 Review of Systems: As Per HPI Limitations: ROS unobtainable due to patients medical condition (MRDD; keeps repeating"garcia is right"; most of ROS given by detention nurs) Respiratory: Reports: dyspnea Past Medical History - Past Medical History Medical history: Reports: asthma, CHF, coronary artery disease, diabetes, hyperlipidemia, hypertension, myocardial infarction, osteoporosis, other Surgical history: Reports: colostomy, other (Extensive abdominal surgery) Psychiatric history: Reports: anxiety, bipolar, other - Social History Smoking Status: Never smoker Smokeless Tobacco Status: No Alcohol use: Reports: none Drug use: Reports: none Physical Exam - General Limitations: no limitations General appearance: alert, in no apparent distress - Head Head exam: atraumatic, normocephalic, normal inspection - Eye Eye exam: Present: normal appearance, PERRL, EOMI - Expanded Eye Exam Pupils: Left: reactive - ENT ENT exam: normal exam, normal oropharynx, mucous membranes moist - Expanded ENT Exam External ear exam: Present: normal external inspection Mouth exam: Present: normal external inspection Teeth exam: Present: normal inspection Throat exam: Present: normal inspection - Neck Neck exam: Present: normal inspection, full ROM, trachea midline - Chest Chest inspection: Present: normal inspection, symmetric chest wall rise - Respiratory Respiratory exam: Present: normal lung sounds bilaterally - Cardiovascular Cardiovascular exam: Present: regular rate, normal rhythm, normal heart sounds - Abdominal Exam Abdominal exam: Present: soft, Non-Tender. Absent: tenderness, distention, guarding, rebound, rigidity - Extremities Exam Extremities exam: Present: normal inspection, full ROM. Absent: tenderness, pedal edema - Expanded Upper Extremity Exam Shoulder exam: Present: normal inspection, full ROM Arm exam: Present: normal inspection, full ROM Elbow exam: Present: normal inspection, full ROM Forearm/Wrist exam: Present: normal inspection, full ROM Hand exam: Present: normal inspection, full ROM Vascular exam: Normal: capillary refill, radial pulse - Expanded Lower Extremity Exam Hip/Pelvis exam: Present: normal inspection, full ROM Upper leg exam: Present: normal inspection, full ROM Knee exam: Present: normal inspection, full ROM Lower leg exam: Present: normal inspection, full ROM Ankle exam: Present: normal inspection, full ROM Foot/toe exam: Present: normal inspection, full ROM Neurovascular/Tendon exam: Absent: motor deficit, sensory deficit, tendon deficit - Back Exam Back exam: Present: normal inspection, full ROM. Absent: tenderness - Neurological Exam Neurological exam: Present: alert, oriented X3 - Expanded Neurological Exam Patient oriented to: Present: person, place, time Coma Scale Eye Opening: Spontaneous Coma Scale Motor Response: Obeys Commands Coma Scale Verbal Response: Oriented Coma Scale Total: 15 - Psychiatric Psychiatric exam: Present: normal affect, normal mood - Skin Skin exam: Present: warm, dry, intact, normal color Course Course Narrative: we will do a dyspnea workup patinet and monitor his o2 saturdation level. BNP is 10. not a chf exceration does not appear to be in respiratory distress curenlty on 3LNC and 96% - Reevaluation(s) Reevaluation #1: updated paienton results and that he will be admitted Time: 14:26 Vital Signs O2 Sat by Pulse Oximetry 93 10/02/16 12:38 Temperature 97.8 F 10/02/16 12:47 Pulse Rate 87 10/02/16 14:07 Respiratory Rate 18 10/02/16 14:07 Blood Pressure 133/87 10/02/16 14:07 O2 Sat by Pulse Oximetry 94 10/02/16 14:07 Oxygen Delivery Oxygen Delivery Nasal Cannula Shortness of Breath/Dyspnea - Lab Data Result diagrams: 10/02/16 12:53 10/02/16 12:53 Lab Results 10/02/16 10/02/16 10/02/16 Range/Units 12:53 12:53 12:53 WBC (4.3-11.1) K/mcL RBC (4.19-5.50) M/mcL Hgb (12.9-16.9) g/dL Hct (37.5-50.1) % MCV (83.0-100.0) fL MCH (28.0-33.3) pg MCHC (31.6-35.5) g/dL RDW (11.5-14.5) % Plt Count (140-400) K/mcL MPV (9.4-12.4) fL Immature Gran % (0-4) % Seg Neutrophils % % Lymphocytes % % Monocytes % % Eosinophils % % Basophils % % Neutrophils # (1.6-8.9) K/mcL Lymphocytes # (0.6-4.6) K/mcL Monocytes # (0.0-1.3) K/mcL Eosinophils # (0.0-0.6) K/mcL Basophils # (0.0-0.2) K/mcL PT 16.3 H (9.4-12.1) Seconds INR 1.5 APTT 37.8 H (26.0-36.0) Seconds Sodium (136-145) mEq/L Potassium (3.5-4.5) mEq/L Chloride (98-109) mEq/L Carbon Dioxide (19-29) mEq/L BUN (8-26) mg/dL Creatinine (0.72-1.25) mg/dL Est GFR ( Amer) (> 60) Est GFR (Non-Af Amer) (> 60) BUN/Creatinine Ratio (6-26) Glucose (70-99) mg/dL Calculated Osmolality (280-300) Calcium (8.6-10.8) mg/dL Total Bilirubin 0.5 (0.2-1.2) mg/dL Direct Bilirubin 0.2 (0.0-0.5) mg/dL Indirect Bilirubin 0.3 (0.0-1.2) mg/dL AST 15 (5-34) Units/L ALT < 6 (0-55) Units/L Alkaline Phosphatase 187 H (38-126) Units/L Troponin I (0-0.03) ng/mL B-Natriuretic Peptide < 10 (0-100) pg/mL Serum Total Protein 7.8 (6.0-8.3) g/dL Albumin 2.6 L (3.5-5.0) g/dL Globulin 5.2 H (2.4-3.5) g/dL Albumin/Globulin Ratio 0.5 L (1.1-2.2) Lipase 33 (8-78) Units/L 10/02/16 10/02/16 10/02/16 Range/Units 12:53 12:53 12:53 WBC 14.7 H (4.3-11.1) K/mcL RBC 3.71 L (4.19-5.50) M/mcL Hgb 10.9 L (12.9-16.9) g/dL Hct 34.4 L (37.5-50.1) % MCV 92.7 (83.0-100.0) fL MCH 29.4 (28.0-33.3) pg MCHC 31.7 (31.6-35.5) g/dL RDW 15.0 H (11.5-14.5) % Plt Count 374 (140-400) K/mcL MPV 9.3 L (9.4-12.4) fL Immature Gran % 1.9 (0-4) % Seg Neutrophils % 89.4 % Lymphocytes % 5.4 % Monocytes % 2.9 % Eosinophils % 0.1 % Basophils % 0.3 % Neutrophils # 13.2 H (1.6-8.9) K/mcL Lymphocytes # 0.8 (0.6-4.6) K/mcL Monocytes # 0.4 (0.0-1.3) K/mcL Eosinophils # 0.0 (0.0-0.6) K/mcL Basophils # 0.0 (0.0-0.2) K/mcL PT (9.4-12.1) Seconds INR APTT (26.0-36.0) Seconds Sodium 134 L (136-145) mEq/L Potassium 4.7 H (3.5-4.5) mEq/L Chloride 99 (98-109) mEq/L Carbon Dioxide 26 (19-29) mEq/L BUN 22 (8-26) mg/dL Creatinine 0.84 (0.72-1.25) mg/dL Est GFR ( Amer) > 60 (> 60) Est GFR (Non-Af Amer) > 60 (> 60) BUN/Creatinine Ratio 26 (6-26) Glucose 129 H (70-99) mg/dL Calculated Osmolality 283 (280-300) Calcium 9.0 (8.6-10.8) mg/dL Total Bilirubin (0.2-1.2) mg/dL Direct Bilirubin (0.0-0.5) mg/dL Indirect Bilirubin (0.0-1.2) mg/dL AST (5-34) Units/L ALT (0-55) Units/L Alkaline Phosphatase (38-126) Units/L Troponin I 0.01 (0-0.03) ng/mL B-Natriuretic Peptide (0-100) pg/mL Serum Total Protein (6.0-8.3) g/dL Albumin (3.5-5.0) g/dL Globulin (2.4-3.5) g/dL Albumin/Globulin Ratio (1.1-2.2) Lipase (8-78) Units/L - EKG Data EKG attestation: Yes I reviewed and interpreted this EKG. EKG results narrative: sinus tachycardia with rate of 101. NO STEMI. normal invervals. no old ekg. [id number]
[2016-10-02] MEDS ORDERED: Piperacillin/Tazobactam 3.375 GM in D5% in Water (Mini-Bag+) 100 ML IVPB ONE (14:13)
[2016-10-02] MEDS ORDERED: Levofloxacin 500 MG/100 ML 500 MG/100 ML BAG IVPB ONE (14:13)
[2016-10-02] MEDS ORDERED: Vancomycin 1,000 MG in D5% in Water 250 ML IVPB ONE (14:13)
[2016-10-02] MEDS ORDERED: Acetaminophen 325 MG TABLET PO PRN (17:19)
[2016-10-02 17:21] LABS: Bilirubin,Urine Negative (Negative); Blood,Urine Negative (Negative); Clarity,Urine Clear (Clear); Color,Urine Yellow (Yellow); Glucose,Urine (UA) Normal (Normal); Ketones,Urine Negative (Negative); Leukocyte Esterase,Urine Negative (Negative); Nitrite,Urine Negative (Negative); Protein,Urine Negative (Neg-Trace); Specific Gravity,Urine 1.028 (1.010-1.025); Urobilinogen,Urine Normal (Normal)
[2016-10-02] MEDS ORDERED: *HR* Dextrose 50 % in Water (Syg) 50 ML SYRINGE IVP PRN (17:28)
[2016-10-02] MEDS ORDERED: Dextrose Gel 15 GM PO PRN ×2 (17:28)
[2016-10-02] MEDS ORDERED: D5% in Water 1,000 ML IVC PRN (17:28)
[2016-10-02] MEDS ORDERED: Naloxone 0.4 MG/ML INJ IVP PRN (17:30)
--- NOTE | 2016-10-02 17:51 | Internal Med History&Physical ---
<Miguelina Braden - Last Filed: 10/02/16 19:20> Date of Encounter: 10/02/16 Time of Encounter: 17:51 Assessment and Plan (1) Acute and chronic respiratory failure ([id number]) Current visit: Yes Status: Acute 1 this is multifactorial - He has issues with diastolic heart failure and has recently had his Lasix increased. As well as experiencing recent bouts of pneumonia. his most recent hospitalization patient was septic with left lower lobe pneumonia and persistent pleural effusions. Blood cultures came back positive for MSSA. He was placed on Ancef and discharged on levofloxacin to complete a 10 day course of antibiotics. He was also discharged on continuous oxygen as well as BiPAP. Patient has not been compliant with oxygen use due to his impaired cognitive state he frequently removed his oxygen. As well as [facility] which is unable to obtain BiPAP. As well as patient has difficulty following directions and is unable to cough and deep breathe. We will continue with oxygen titrated to maintain SPO2 greater than 88%. 2 we will continue with BiPAP at night 3 continuous SPO2 monitoring 4 we will continue to titrate steroids 5 . Finished his last dose of antibiotics today-do not feel that this is worsening of his pneumonia- will not reinitiate antibiotics for now blood cultures have been obtained his last blood culture was -4 growth prior to discharge. I suspect this is more mechanical in nature poor pulmonary toilet- patient unable to cough and deep breathe due to limited cognition we will continue with chest percussion per respiratory therapy overnight. We will reevaluate in the a.m.-consult pulmonary as needed 6 we will consult social work professor patient may need to be discharged to facility that has access to respiratory therapy 7 we will continue diuresing-will give 40 mg IV Lasix twice a day 8we will continue with bronchodilators Qualifiers: Respiratory failure complication: hypoxia Qualified Code(s): J96.21 - Acute and chronic respiratory failure with hypoxia (2) Pneumonia Current visit: No Status: Acute 1 Finished his last dose of antibiotics today-do not feel that this is worsening of his pneumonia- will not reinitiate antibiotics for now blood cultures have been obtained. His last blood culture was -4 growth prior to discharge. I suspect this is more mechanical in nature poor pulmonary toilet- patient unable to cough and deep breathe due to limited cognition we will continue with chest percussion per respiratory therapy overnight. We will reevaluate in the a.m.-consult pulmonary as needed 2 continuous oxygen titrating maintaining SPO2 greater than 88 % 3 bronchodilators 4 continue with steroid taper Qualifiers: Pneumonia type: due to unspecified organism Laterality: right Lung location: lower lobe of lung Qualified Code(s): J18.1 - Lobar pneumonia, unspecified organism (3) Bipolar 1 disorder Current visit: No Status: Chronic 1 Presently stable we will continue with his home medications (4) Diabetes mellitus Current visit: No Status: Chronic 1 Accu-Cheks before meals at bedtime we will sign scale insulin we will hold metformin for now and resume upon discharge 2 diabetic diet Qualifiers: Diabetes mellitus type: type 2 Diabetes mellitus complication status: without complication Diabetes mellitus correction insulin use: without order filler use Qualified Code(s): E11.9 - Type 2 diabetes mellitus without complications (5) Diastolic CHF Current visit: No Status: Chronic 1 persistent pleural effusion. We will give 40 mg IV Lasix twice a day continue with oxygen 2 monitor intake and output daily weights 3 low-sodium diet Qualifiers: Congestive heart failure chronicity: chronic Qualified Code(s): I50.32 - Chronic diastolic (congestive) heart failure (6) DVT prophylaxis Current visit: No Status: Chronic 1 [facility] Internal Medicine - H&P: HPI Chief complaint: SOB Admitted From: Emergency Dept Plans for Post Hospital Care: Home History of present illness: Mr. Lubin is a 71 year old male past medical history of chronic wrist with failure cognitive disorder bipolar right pleural effusion diastolic CHF. She has been in and as of the hospital since 09/17/2016 with most recent discharge on 09/30/2016. Hospitalizations stemming from acute on chronic respiratory failure. His most recent hospitalization patient was septic with them LL pneumonia and persistent left pleural effusion. Blood cultures came back positive for MSSA he was placed on Ancef 2 g 3 times a day and continued on levofloxacin. He required high flow oxygen he was having difficulty coughing up secretions and he was started on frequent chest PT. Pulmonary was consulted did not recommend any bronchoscopy have requested thoracentesis on his right side. Thoracentesis removed 400 mL of fluid in the fluid came back as no growth. His pleural fluid analysis showed more white exudate from pneumonia. He was discharged back to his ECF to finish his 10 days of antibiotic course which consisted of 2 more days of oral levofloxacin. He was also discharged home with BiPAP at night and 2 L of oxygen continuously.today the patient was sent to our facility from his [facility] with low oxygen saturations. O2 sats in the 80s. Patient is to wear oxygen continuously since his discharge as well as BiPAP at night. According to ER physician notes on speaking to prison nurse patient has not been wearing BiPAP at night due to the abdominal unable to obtain one for him and his follow-up appointment with pulmonology is next week. Also he has been intermittently using his oxygen. After eating breakfast they noticed that his oxygen saturation dropped down to the low 80s and became concerned and sent him to the ED for evaluation. In the ER patient patient presented with SPO2 of 90% on 3 L nasal cannula lab work today reveal white count 14.7 which is up from 13on the 10th of this month. Chemistries unremarkable BNP less than 10 troponins 0.01. Chest x-ray does show some Increasing right-sided opacity and right-sided pleural effusion which appears increased in size. He has been admitted for further workup and evaluation. Presently the patient does not appear in respiratory distress he is 94-93% on 3 L nasal cannula he does have some vague expiratory wheezes throughout lung liu heart sounds are regular S1 and S2 with no rubs clear scalp spell was noted no pedal edema noted abdomen soft and nontender he does have a colostomy which is intact with no breakdown. I discussed this case with Dr. Mclean who agrees with plan. 7 Past Med Surg Social Fam HX - Past Medical History Medical history: asthma, atrial fibrillation, CHF, coronary artery disease, diabetes, hyperlipidemia, hypertension, myocardial infarction, osteoporosis, other Psychiatric history: anxiety, bipolar, other - Past Surgical History Surgical History: colostomy, other - Social History Smoking Status: Never smoker Smokeless Tobacco Status: No Alcohol use: none Drug use: none - Additional Family History Additional family history: Unable to review due to mental state Internal Medicine - H&P: Meds Acetaminophen [Tylenol] 650 mg PO Q4HR PRN 04/03/15 [History] Alendronate Sodium [Fosamax] 70 mg PO TH 04/03/15 [History] Atorvastatin [Lipitor] 40 mg PO HS 04/03/15 [History] Cholecalciferol (Vitamin D3) [Vitamin D3] 1,000 unit PO DAILY 04/03/15 [History] Docusate Sodium [Colace] 200 mg PO BID 04/03/15 [History] FLUoxetine HCl [Prozac] 40 mg PO DAILY 04/03/15 [History] Folic Acid 1 mg PO DAILY 04/03/15 [History] Gemfibrozil [Lopid] 600 mg PO BID 04/03/15 [History] Lisinopril [Zestril] 10 mg PO DAILY 04/03/15 [History] Magnesium Hydroxide [Milk of Magnesia] 30 ml PO DAILY PRN 04/03/15 [History] Metformin HCl [Glucophage] 1,000 mg PO BID 04/03/15 [History] Polyethylene Glycol 3350 [MiraLAX bowel prep] 15 gm PO BID PRN #0 04/03/15 [ History] carBAMazepine [Tegretol] 400 mg PO HS 04/03/15 [History] clonazePAM [Klonopin] 0.5 mg PO BID 04/03/15 [History] Albuterol Neb [Proventil Neb] 2.5 mg IH Q4H PRN 09/22/15 [History] Mag Hydrox/Al Hydrox/Simeth [Adv Antacid-[place] Liquid] 30 ml PO Q4H PRN #0 [History] [place]-3 Fatty Acids/Fish Oil [[place]-3 Fish Oil 1,000 mg Sfgl] 1,000 mg PO BID [History] carBAMazepine [Tegretol] 200 mg PO QAM 09/22/15 [History] Cariprazine HCl [Vraylar] 1.5 mg PO HS 09/13/16 [History] Aspirin 81 mg PO Q48H 09/15/16 [History] Loperamide [Imodium] 4 mg PO AD PRN 09/15/16 [History] Metoprolol XL (24 HR) Succ [Toprol Xl] 12.5 mg PO DAILY 09/15/16 [History] Furosemide [Lasix] 40 mg PO DAILY #90 tab 09/30/16 [Rx] Levofloxacin [Levaquin] 500 mg PO DAILY #2 tablet 09/30/16 [Rx] predniSONE [PredniSONE] See Taper PO DAILY 10/02/16 [History] Allergies No Known Allergies Allergy (Verified 09/22/15 09:12) ROS unobtainable: due to mental status All Systems PM: A 10-system review of systems was performed and is negative for pertinent findings except as documented above in the HPI. - Constitutional Vitals: Temp Pulse Resp BP Pulse Ox 98 F 80 17 117/70 92 10/02/16 16:05 10/02/16 16:05 10/02/16 16:05 10/02/16 16:05 10/02/16 16:05 General appearance: Present: A&O X 1 Exam: Patient is oriented to name only - Head Head exam: Present: atraumatic, normocephalic - Eye Eye exam: Present: PERRL, conjuntiva pink, sclera anicteric Pupils: Present: PERRL - Neck Neck exam general surgery: Present: supple, trachea midline. Absent: lymphadenopathy - Respiratory Respiratory exam: Present: wheezes. Absent: accessory muscle use, rales, rhonchi Additional comments: faint expiratory wheeze - Cardiovascular Cardiovascular exam: Present: RRR, +S1, +S2. Absent: diastolic murmur, gallop, rubs, systolic murmur - GI/Abdominal GI/Abdominal exam: Present: normal bowel sounds, soft, no peritoneal signs. Absent: distended, tenderness - Extremities Exam Extremities exam: Present: warm, radial pulses palpable and symmetrical. Absent : calf tenderness, cyanotic, pedal edema - Neurological Exam Neurological exam: Absent: pronater drift, facial droop, speech deficit - Skin Skin exam: Present: dry, intact Internal Med - H&P Results - Labs CBC & Chem 7: 10/02/16 12:53 10/02/16 12:53 Labs: Urine 10/02/16 Range/Units 17:00 Urine Color Yellow (Yellow) Urine Clarity Clear (Clear) Urine pH 6.0 (5.0-8.0) pH Units Ur Specific [place] 1.028 H (1.010-1.025) Urine Protein Negative (Neg-Trace) mg/dL Urine Glucose (UA) Normal (Normal) mg/dL - Diagnostic Studies Other Images Additional comments: Chest X-Ray 10/02/16 12:41 IMPRESSION: Increasing right-sided opacity may reflect pneumonia. A right-sided pleural effusion appears increased in size. Radiographic follow-up to resolution is suggested. D/ / 10/02/2016 13:55:57 Francisco Hodges MD / [facility] Interpreting Provider: Francisco Hodges MD <Alvin Mclean - Last Filed: 10/03/16 18:36> Date of Encounter: 10/03/16 Internal Medicine - H&P: HPI History of present illness: Mr. Lubin is a 71 year old male All Systems PM: A 10-system review of systems was performed and is negative for pertinent findings except as documented above in the HPI. - Constitutional Vitals: Temp Pulse Resp BP Pulse Ox 98.1 F 111 20 104/72 93 10/03/16 17:03 10/03/16 17:03 10/03/16 17:03 10/03/16 17:03 10/03/16 17:03 Internal Med - H&P Results - Labs CBC & Chem 7: 10/03/16 03:41 10/03/16 03:41 - Attending Attestation I examined this patient and my medical decision-making was reviewed with the POWDER [facility]KEY. I agree with the documented findings, disposition and treatment plan as described
[2016-10-02] MEDS: Aspirin 81 MG TAB.CHEW PO SCH (18:34)
[2016-10-02] MEDS: clonazePAM 0.5 MG TABLET PO SCH (22:06)
[2016-10-02] MEDS: carBAMazepine 200 MG TABLET PO SCH (22:06)
[2016-10-02] MEDS: Insulin LISPRO 300 UNITS/3 ML VIAL SQ SCH (22:07)
[2016-10-02] MEDS: (Cariprazine Hcl [Vraylar] 1.5 MG) PO SCH (22:07)
[2016-10-03 04:18] LABS: BUN/Creatinine Ratio 22 (6-26); Blood Urea Nitrogen 21 mg/dL (8-26); Calcium 8.6 mg/dL (8.6-10.8); Carbon Dioxide 27 mEq/L (19-29); Chloride 100 mEq/L (98-109); Glucose 132 mg/dL (70-99); Osmolality,Calculated 285 (280-300); Potassium 4.5 mEq/L (3.5-4.5); Sodium 135 mEq/L (136-145); eGFR For African Americans > 60 (> 60); eGFR For Non-African Americans > 60 (> 60)
[2016-10-03 06:00] LABS: Basophils % 0.3 %; Eosinophils # 0.1 K/mcL (0.0-0.6); Eosinophils % 0.7 %; Hematocrit 32.7 % (37.5-50.1); Hemoglobin 10.2 g/dL (12.9-16.9); Immature Granulocytes % 2.1 % (0-4); Lymphocytes # 1.8 K/mcL (0.6-4.6); Mean Corpuscular HGB Conc 31.2 g/dL (31.6-35.5); Mean Corpuscular Hemoglobin 29.2 pg (28.0-33.3); Mean Corpuscular Volume 93.7 fL (83.0-100.0); Mean Platelet Volume 9.7 fL (9.4-12.4); Monocytes # 1.1 K/mcL (0.0-1.3); Neutrophils # 10.3 K/mcL (1.6-8.9); Platelet Count 368 K/mcL (140-400); Red Blood Count 3.49 M/mcL (4.19-5.50); Segmented Neutrophils % 75.9 %
--- NOTE | 2016-10-03 07:11 | Electrocardiograph Report ---
[place] [id number] Test Date: 2016-10-02 Pat Name: Gaurav Lubin Department: 105 Room: [facility] Gender: M [employer]: : 1945 Requested By: Ludy Quintana Order Number: [id number] Reading MD: Jimi Calix MD Measurements Intervals [place] Rate: 101 P: 22 UT: 205 QRS: -23 QRSD: 88 T: 26 QT: 351 QTc: 409 Interpretive Statements SINUS TACHYCARDIA BORDERLINE LEFT AXIS DEVIATION Electronically Signed On 10-03-2016 7:09:03 EDT by Jimi Calix MD
[2016-10-03] MEDS: Insulin LISPRO 300 UNITS/3 ML VIAL SQ SCH ×4 (07:58→23:09)
[2016-10-03] MEDS: predniSONE 20 MG TABLET PO SCH (09:21)
[2016-10-03] MEDS: Folic Acid 1 MG TABLET PO SCH (09:22)
[2016-10-03] MEDS: carBAMazepine 200 MG TABLET PO SCH ×2 (09:22→23:50)
[2016-10-03] MEDS: Metoprolol XL (24 HR) Succ 25 MG TAB.ER.24H PO SCH (09:22)
[2016-10-03] MEDS: FLUoxetine 20 MG CAPSULE PO SCH (09:22)
[2016-10-03] MEDS: clonazePAM 0.5 MG TABLET PO SCH ×2 (09:22→23:50)
[2016-10-03] MEDS: Furosemide 40 MG/4 ML VIAL IVP SCH ×2 (09:23→17:54)
--- NOTE | 2016-10-03 10:44 | Internal Med Progress Note ---
<Little López - Last Filed: 10/03/16 14:33> Date of Encounter: 10/03/16 Time of Encounter: 10:40 - Assessment and plan (1) Acute and chronic respiratory failure ([id number]) Current Visit: Yes Status: Acute Assessment and plan: CXR showed increasing right sided opacity and moderate right pleural effusion. multifactorial in setting of diastolic CHF, acute on chronic respiratory failure , noncompliance with BIPAP and oxygen. recently lasix increased from 40mg to 60 mg daily. last hospitalization blood cultures positive for MSSA. was on ancef and discharged on levaquin to complete 10 day course. was also d/c on continuous oxygen and BiPAP, and has not been compliant. correction unable to obtain BiPAP. Plan: continuous pulse ox continuous oxygen BiPAP at night steroid taper blood cultures pending bronchodilators. CT chest pending to look for possible loculated pleural effusion. Levaquin and zosyn day 1 blood cultures pending. Qualifiers: Respiratory failure complication: hypoxia Qualified Code(s): J96.21 - Acute and chronic respiratory failure with hypoxia (2) Pneumonia Current Visit: No Status: Acute Assessment and plan: plan as above. Qualifiers: Pneumonia type: due to unspecified organism Laterality: right Lung location: lower lobe of lung Qualified Code(s): J18.1 - Lobar pneumonia, unspecified organism (3) Bipolar 1 disorder Current Visit: No Status: Chronic Assessment and plan: continue home meds. (4) Diabetes mellitus Current Visit: No Status: Chronic Assessment and plan: SSI, hold metformin ACHS accuchecks Diabetic diet Qualifiers: Diabetes mellitus type: type 2 Diabetes mellitus complication status: without complication Diabetes mellitus longterm insulin use: without middle or intermediate school principal use Qualified Code(s): E11.9 - Type 2 diabetes mellitus without complications (5) Diastolic CHF Current Visit: No Status: Chronic Assessment and plan: 40mg lasix BID I/O daily weights. Qualifiers: Congestive heart failure chronicity: chronic Qualified Code(s): I50.32 - Chronic diastolic (congestive) heart failure (6) DVT prophylaxis Current Visit: No Status: Chronic Assessment and plan: lovenox SQ - Subjective Interval history: 71 year old male evaluated at bedside. patient is a poor historian and has baseline mental retardation. he is alert, and does not respond to questions. - Constitutional Vitals: Temp Pulse Resp BP Pulse Ox 97.4 F L 108 20 120/73 94 10/03/16 07:22 10/03/16 07:22 10/03/16 07:22 10/03/16 07:22 10/03/16 09:36 General appearance: Present: cooperative - Head Head exam: Present: atraumatic, normocephalic - Neck Neck exam general surgery: Present: supple, trachea midline - Respiratory Additional comments: diffuse wheezing present throughout. - Cardiovascular Cardiovascular exam: Present: RRR, +S1, +S2 - GI/Abdominal Additional comments: colostomy in place with solid brown stool present. - Extremities Exam Extremities exam: Absent: cyanotic, pedal edema - Neurological Exam Neurological exam: Present: alert - Skin Skin exam: Present: intact Internal Medicine: Result - Labs CBC & Chem 7: 10/03/16 03:41 10/03/16 03:41 Labs: Short CBC 10/03/16 Range/Units 03:41 WBC 13.6 H (4.3-11.1) K/mcL Hgb 10.2 L (12.9-16.9) g/dL Hct 32.7 L (37.5-50.1) % Plt Count 368 (140-400) K/mcL Neutrophils # 10.3 H (1.6-8.9) K/mcL BMP 10/03/16 03:41 Sodium 135 L Potassium 4.5 Chloride 100 Carbon Dioxide 27 BUN 21 Creatinine 0.94 Glucose 132 H Calcium 8.6 Urine 10/02/16 Range/Units 17:00 Urine Color Yellow (Yellow) Urine Clarity Clear (Clear) Urine pH 6.0 (5.0-8.0) pH Units Ur Specific [place] 1.028 H (1.010-1.025) Urine Protein Negative (Neg-Trace) mg/dL Urine Glucose (UA) Normal (Normal) mg/dL - ABG Interpretation ABG results: PT/INR, D-dimer PT 16.3 Seconds (9.4-12.1) H 10/02/16 12:53 Consult Discharge Plan - Plan Referrals: Edelmira Brennan MD [Primary Care Provider] - (web request sent on 10/03/16) <[place] - Last Filed: 10/03/16 17:49> Date of Encounter: 10/03/16 - Constitutional Vitals: Temp Pulse Resp BP Pulse Ox 98.1 F 111 20 104/72 93 10/03/16 17:03 10/03/16 17:03 10/03/16 17:03 10/03/16 17:03 10/03/16 17:03 Internal Medicine: Result - Labs CBC & Chem 7: 10/03/16 03:41 10/03/16 03:41 Labs: Short CBC 10/03/16 Range/Units 03:41 WBC 13.6 H (4.3-11.1) K/mcL Hgb 10.2 L (12.9-16.9) g/dL Hct 32.7 L (37.5-50.1) % Plt Count 368 (140-400) K/mcL Neutrophils # 10.3 H (1.6-8.9) K/mcL BMP 10/03/16 03:41 Sodium 135 L Potassium 4.5 Chloride 100 Carbon Dioxide 27 BUN 21 Creatinine 0.94 Glucose 132 H Calcium 8.6 - ABG Interpretation ABG results: PT/INR, D-dimer PT 16.3 Seconds (9.4-12.1) H 10/02/16 12:53 - Impressions Impressions Chest CT 10/03/16 13:45 IMPRESSION: 1. Interval increase in size of a loculated moderate to large right pleural effusion with multifocal consolidation throughout the right lung, most notably involving the right lower lobe, most likely passive atelectasis. However, underlying pneumonia or malignancy cannot be excluded. 2. Multiple subacute healing right rib fractures. D/ 10/03/2016 15:14:54 Damián Webb MD / [facility] Interpreting Provider: Damián Webb MD - Attending Attestation I examined this patient and my medical decision-making was reviewed with the Resident Physician on 10/03/16. I agree with the documented findings, disposition and treatment plan as described except to the extent set forth below. Patient seen and examined He is mostly non-verbal and is unable to voice complains He was recently discharged for sepsis secondary to pneumonia On exam, he is in cardiac position, able to respond to name call, not in distress, chest exam with diminished air entry on the R Upper and lower lobe, S1 , S2, no m/g/r, no pedal edema,. He has an empty colostomy bag on the LLQ labs and imaging reviewed Loculated R pleural effusion A/P Acute on chronic hypoxic resp failure Suspect aspiration pneumonia Recurrent pleural effusion MRDD CHFpEF Continue lasix, start zosyn and levaquin, obtain chest CT, NPO MN, Pulmonary eval for thoracentensis Rest of details as in resident physician's documentation
[2016-10-03] MEDS: *HR* Enoxaparin 40 MG/0.4 ML SYRINGE SQ SCH (11:33)
[2016-10-03] MEDS: Levofloxacin 750 MG/150 ML 750 MG/150 ML BAG IVPB SCH (12:36)
[2016-10-03] MEDS: Ipratropium/Albuterol Neb 3 ML IH PRN (13:09)
[2016-10-03] MEDS: Piperacillin/Tazobactam 3.375 GM in D5% in Water (Mini-Bag+) 100 ML IVPB SCH (17:55)
[2016-10-03] MEDS: (Cariprazine Hcl [Vraylar] 1.5 MG) PO SCH (23:51)
[2016-10-04 05:22] LABS: ABG HCO3 30.4 mEQ/L (21-27); ABG Oxygen Saturation 88 % (95-98); ABG PCO2 48 mmHg (35-45); ABG PH 7.41 pH Units (7.32-7.45); ABG PO2 54 mmHg (85-104); ABG TCO2 31.9 mEq/L (20-26)
[2016-10-04 05:23] LABS: Blood Gas FiO2 28 %; Blood Gas Liter Flow 2 L/MIN
[2016-10-04] MEDS: Piperacillin/Tazobactam 3.375 GM in D5% in Water (Mini-Bag+) 100 ML IVPB SCH ×2 (06:32→16:21)
[2016-10-04] MEDS: *HR* Enoxaparin 40 MG/0.4 ML SYRINGE SQ SCH (06:32)
[2016-10-04 07:33] LABS: Basophils # 0.1 K/mcL (0.0-0.2); Basophils % 0.5 %; Eosinophils # 0.1 K/mcL (0.0-0.6); Eosinophils % 1.2 %; Hematocrit 34.5 % (37.5-50.1); Immature Granulocytes % 1.6 % (0-4); Lymphocytes # 1.7 K/mcL (0.6-4.6); Lymphocytes % 16.2 %; Mean Corpuscular HGB Conc 31.9 g/dL (31.6-35.5); Mean Platelet Volume 9.4 fL (9.4-12.4); Monocytes % 9.1 %; Neutrophils # 7.6 K/mcL (1.6-8.9); Platelet Count 322 K/mcL (140-400); Red Blood Count 3.67 M/mcL (4.19-5.50); Red Cell Distribution Width 15.2 % (11.5-14.5); Segmented Neutrophils % 71.4 %
[2016-10-04 07:37] LABS: INR 1.5; Prothrombin Time 16.9 Seconds (9.4-12.1)
[2016-10-04 07:47] LABS: Alanine Aminotransferase 7 Units/L (0-55); Albumin 2.5 g/dL (3.5-5.0); Albumin/Globulin Ratio 0.5 (1.1-2.2); Alkaline Phosphatase 178 Units/L (38-126); Aspartate Amino Transferase 15 Units/L (5-34); BUN/Creatinine Ratio 25 (6-26); Bilirubin,Total 0.3 mg/dL (0.2-1.2); Blood Urea Nitrogen 21 mg/dL (8-26); Calcium 8.5 mg/dL (8.6-10.8); Carbon Dioxide 28 mEq/L (19-29); Chloride 100 mEq/L (98-109); Globulin 5.2 g/dL (2.4-3.5); Glucose 114 mg/dL (70-99); Lactate Dehydrogenase 211 Units/L (159-327); Osmolality,Calculated 286 (280-300); Sodium 136 mEq/L (136-145); Total Protein 7.7 g/dL (6.0-8.3); eGFR For African Americans > 60 (> 60); eGFR For Non-African Americans > 60 (> 60)
[2016-10-04] MEDS: Insulin LISPRO 300 UNITS/3 ML VIAL SQ SCH ×4 (09:15→22:06)
[2016-10-04] MEDS ORDERED: *HR* Midazolam HCl 2 MG/2 ML VIAL IVP PRN (09:26)
[2016-10-04] MEDS ORDERED: *HR* FentaNYL (PF) 100 MCG/2 ML VIAL IVP PRN (09:26)
[2016-10-04] MEDS ORDERED: 0.9 % Sodium Chloride 500 ML ONE ×2 (09:33→20:56)
--- NOTE | 2016-10-04 10:07 | IR Procedure Note ---
Date of procedure: 10/04/16 Consent Obtained: Verbal consent Timeout: Correct patient and procedure verified, Correct site verified, Time out performed, Skin prep completed Local anesthetic: Lidocaine 1% Indications: Pleural effusions Procedure Performed: Chest tube placement x2 Site/Technique: 2 right sided chest tubes placed Results/Findings: Loculated pleural effusion Estimated blood loss (cc): 2 Complications: None; Tolerated procedure well Post Procedure Treatment Plan: Continue inpatient care
--- NOTE | 2016-10-04 11:07 | Pulmonology Consult Note ---
<Riley Josue - Last Filed: 10/04/16 14:06> Date of Encounter: 10/04/16 Assessment and Plan (1) Acute and chronic respiratory failure ([id number]) Current Visit: Yes Status: Acute Chest x-ray showed increasing right sided opacity and a moderate right-sided pleural effusion on admission. -This is likely related to his CHF and noncompliance with BiPAP. -Lasix has been increased from 40-60. -During his last hospitalization approximately 2 weeks ago, possible patient's blood culture was positive for MSSA. Patient was on Ancef and was discharged with -Levaquin to complete a ten-day course. -He was also supposed to use a BiPAP she, however there is an issue with getting him the required equipment from the center where he was staying. -Monitor patient's pulse ox closely. Continue oxygen, BiPAP at night. Steroid taper. Blood cultures are currently pending. -500 mL of serosanguineous fluid was drained, no complications from effusion drainage. 2 right-sided [place] chest tubes were placed. Qualifiers: Respiratory failure complication: hypoxia Qualified Code(s): J96.21 - Acute and chronic respiratory failure with hypoxia (2) CHF (congestive heart failure) Current Visit: No Status: Acute Patient is on 40 mg Lasix twice a day. -Monitor intakes and outputs very closely. -Daily weights Qualifiers: Congestive heart failure type: diastolic Congestive heart failure chronicity: acute on chronic Qualified Code(s): I50.33 - Acute on chronic diastolic (congestive) heart failure (3) Diabetes mellitus Current Visit: No Status: Chronic Hold metformin Diabetic diet Qualifiers: Diabetes mellitus type: type 2 Diabetes mellitus complication status: without complication Diabetes mellitus intermodal customer service insulin use: without snf use Qualified Code(s): E11.9 - Type 2 diabetes mellitus without complications (4) Pneumonia Current Visit: No Status: Acute Patient is currently on piperacillin and levofloxacin. -Effusion was drained without complication. -Blood cultures are currently pending. Qualifiers: Pneumonia type: due to unspecified organism Laterality: right Lung location: lower lobe of lung Qualified Code(s): J18.1 - Lobar pneumonia, unspecified organism (5) Pleural effusion Current Visit: Yes Status: Acute Patient has a pleural effusion on the right side. Initial imaging performed on admission revealed a right-sided opacity, possibly secondary to pneumonia. -Patient had a right pleural effusion that was growing larger. -On intervention, there was a CT-guided placement of 2 [place] chest tubes. -500 mL of serous and once pleural fluid was aspirated; sent to labs. -No immediate complications from the procedure. -Patient's pleural effusion is possibly a result of pneumonia or CHF exacerbation. History of Present Illness Consult date: 10/04/16 Requesting physician: Riley Josue Reason for consult: dyspnea, abnormal CXR/CT Chief complaint: Shortness of breath History of present illness: Patient was seen and examined at bedside this morning. Patient is unable to verbalize, and repeatedly says "garcia is right" over over again. Patient is, however, able to follow simple commands. Patient is able to squeeze my hand when told to. Patient also has the ability to nod his head yes and shake his head no. Patient does not appear to be in any acute distress, nor does he appear to have any labored breathing. Patient is smiling and does appear to be attempting to communicate, but is unable to form words. Medications and Allergies Acetaminophen [Tylenol] 650 mg PO Q4HR PRN 04/03/15 [History] Alendronate Sodium [Fosamax] 70 mg PO TH 04/03/15 [History] Atorvastatin [Lipitor] 40 mg PO HS 04/03/15 [History] Cholecalciferol (Vitamin D3) [Vitamin D3] 1,000 unit PO DAILY 04/03/15 [History] Docusate Sodium [Colace] 200 mg PO BID 04/03/15 [History] FLUoxetine HCl [Prozac] 40 mg PO DAILY 04/03/15 [History] Folic Acid 1 mg PO DAILY 04/03/15 [History] Gemfibrozil [Lopid] 600 mg PO BID 04/03/15 [History] Lisinopril [Zestril] 10 mg PO DAILY 04/03/15 [History] Magnesium Hydroxide [Milk of Magnesia] 30 ml PO DAILY PRN 04/03/15 [History] Metformin HCl [Glucophage] 1,000 mg PO BID 04/03/15 [History] Polyethylene Glycol 3350 [MiraLAX bowel prep] 15 gm PO BID PRN #0 04/03/15 [ History] carBAMazepine [Tegretol] 400 mg PO HS 04/03/15 [History] clonazePAM [Klonopin] 0.5 mg PO BID 04/03/15 [History] Albuterol Neb [Proventil Neb] 2.5 mg IH Q4H PRN 09/22/15 [History] Mag Hydrox/Al Hydrox/Simeth [Adv Antacid-[place] Liquid] 30 ml PO Q4H PRN #0 [History] [place]-3 Fatty Acids/Fish Oil [[place]-3 Fish Oil 1,000 mg Sfgl] 1,000 mg PO BID [History] carBAMazepine [Tegretol] 200 mg PO QAM 09/22/15 [History] Cariprazine HCl [Vraylar] 1.5 mg PO HS 09/13/16 [History] Aspirin 81 mg PO Q48H 09/15/16 [History] Loperamide [Imodium] 4 mg PO AD PRN 09/15/16 [History] Metoprolol XL (24 HR) Succ [Toprol Xl] 12.5 mg PO DAILY 09/15/16 [History] Furosemide [Lasix] 40 mg PO DAILY #90 tab 09/30/16 [Rx] Levofloxacin [Levaquin] 500 mg PO DAILY #2 tablet 09/30/16 [Rx] predniSONE [PredniSONE] See Taper PO DAILY 10/02/16 [History] Allergies No Known Allergies Allergy (Verified 09/22/15 09:12) All Systems: A 10-system review of systems was performed and is negative for pertinent findings except as documented above in the HPI. - Cardiovascular Cardiovascular: no irregular heart rhythm (Patient has a known history of atrial fibrillation. However, heart rhythm sounds regular.) - Respiratory Respiratory: no cough, no dyspnea Physical Examination Vital Signs: Vital Signs, Last 4 Hours Pulse Resp BP Pulse Ox 10/04/16 11:00 91 10/04/16 10:01 98 26 107/70 89 10/04/16 09:50 98 28 108/64 90 10/04/16 09:45 97 20 114/71 91 Effort: normal Inspection: normal Auscultation: bilateral: rales Cardiovascular: irregular rhythm (Patient is unable to communicate verbally. He is however able to follow commands. Patient is also able to nod his head yes and shake his head no.) Results - Laboratory Findings CBC and BMP: 10/04/16 07:15 10/04/16 07:15 ABG ABG pH 7.41 pH Units (7.32-7.45) 10/04/16 05:10 ABG pCO2 48 mmHg (35-45) H 10/04/16 05:10 ABG pO2 54 mmHg (85-104) L 10/04/16 05:10 ABG O2 Saturation 88 % (95-98) L 10/04/16 05:10 PT/INR, D-dimer PT 16.9 Seconds (9.4-12.1) H 10/04/16 07:15 Abnormal lab findings: Abnormal lab results RBC 3.67 M/mcL (4.19-5.50) L 10/04/16 07:15 Hgb 11.0 g/dL (12.9-16.9) L 10/04/16 07:15 Hct 34.5 % (37.5-50.1) L 10/04/16 07:15 RDW 15.2 % (11.5-14.5) H 10/04/16 07:15 PT 16.9 Seconds (9.4-12.1) H 10/04/16 07:15 APTT 37.8 Seconds (26.0-36.0) H 10/02/16 12:53 ABG pCO2 48 mmHg (35-45) H 10/04/16 05:10 ABG pO2 54 mmHg (85-104) L 10/04/16 05:10 ABG HCO3 30.4 mEQ/L (21-27) H 10/04/16 05:10 ABG Total CO2 31.9 mEq/L (20-26) H 10/04/16 05:10 ABG O2 Saturation 88 % (95-98) L 10/04/16 05:10 ABG Base Excess 5.0 mEq/L (-2.0 to 3.0) H 10/04/16 05:10 Glucose 114 mg/dL (70-99) H 10/04/16 07:15 POC Glucose 143 (58-89) H 10/03/16 21:28 Calcium 8.5 mg/dL (8.6-10.8) L 10/04/16 07:15 Alkaline Phosphatase 178 Units/L (38-126) H 10/04/16 07:15 Albumin 2.5 g/dL (3.5-5.0) L 10/04/16 07:15 Globulin 5.2 g/dL (2.4-3.5) H 10/04/16 07:15 Albumin/Globulin Ratio 0.5 (1.1-2.2) L 10/04/16 07:15 Ur Specific [place] 1.028 (1.010-1.025) H 10/02/16 17:00 Pleural RBC 0.045 M/mcL (0.000-0.002) H 10/04/16 09:50 - Clinical Findings Intake & Output: Intake & Output 10/03/16 10/04/16 10/04/16 23:59 07:59 15:59 Intake Total 580 / 580 220 / 220 Output Total 1000 / 1000 Balance 580 / 230 -780 / -780 Weight 99.9 kg Consult Discharge Plan - Plan Referrals: Edelmira Brennan MD [Primary Care Provider] - (web request sent on 10/03/16) <Hai Thomason M - Last Filed: 10/04/16 15:04> Date of Encounter: 10/04/16 Time of Encounter: 11:00 Past Med Surg Social Fam HX - Past Medical History Medical history: asthma, atrial fibrillation, CHF, coronary artery disease, diabetes, hyperlipidemia, hypertension, myocardial infarction, osteoporosis, other Psychiatric history: anxiety, bipolar, other - Past Surgical History Surgical History: colostomy, other - Social History Smoking Status: Never smoker Smokeless Tobacco Status: No Alcohol use: none Drug use: none All Systems: A 10-system review of systems was performed and is negative for pertinent findings except as documented above in the HPI. Physical Examination Vital Signs: Vital Signs, Last 4 Hours Temp Pulse Resp BP Pulse Ox 10/04/16 10:01 98 26 107/70 89 10/04/16 09:50 98 28 108/64 90 10/04/16 09:45 97 20 114/71 91 10/04/16 09:38 98 32 110/79 93 10/04/16 07:48 98.2 F 109 18 100/68 93 Results - Laboratory Findings CBC and BMP: 10/04/16 07:15 10/04/16 07:15 ABG ABG pH 7.41 pH Units (7.32-7.45) 10/04/16 05:10 ABG pCO2 48 mmHg (35-45) H 10/04/16 05:10 ABG pO2 54 mmHg (85-104) L 10/04/16 05:10 ABG O2 Saturation 88 % (95-98) L 10/04/16 05:10 PT/INR, D-dimer PT 16.9 Seconds (9.4-12.1) H 10/04/16 07:15 Abnormal lab findings: Abnormal lab results RBC 3.67 M/mcL (4.19-5.50) L 10/04/16 07:15 Hgb 11.0 g/dL (12.9-16.9) L 10/04/16 07:15 Hct 34.5 % (37.5-50.1) L 10/04/16 07:15 RDW 15.2 % (11.5-14.5) H 10/04/16 07:15 PT 16.9 Seconds (9.4-12.1) H 10/04/16 07:15 APTT 37.8 Seconds (26.0-36.0) H 10/02/16 12:53 ABG pCO2 48 mmHg (35-45) H 10/04/16 05:10 ABG pO2 54 mmHg (85-104) L 10/04/16 05:10 ABG HCO3 30.4 mEQ/L (21-27) H 10/04/16 05:10 ABG Total CO2 31.9 mEq/L (20-26) H 10/04/16 05:10 ABG O2 Saturation 88 % (95-98) L 10/04/16 05:10 ABG Base Excess 5.0 mEq/L (-2.0 to 3.0) H 10/04/16 05:10 Glucose 114 mg/dL (70-99) H 10/04/16 07:15 POC Glucose 143 (58-89) H 10/03/16 21:28 Calcium 8.5 mg/dL (8.6-10.8) L 10/04/16 07:15 Alkaline Phosphatase 178 Units/L (38-126) H 10/04/16 07:15 Albumin 2.5 g/dL (3.5-5.0) L 10/04/16 07:15 Globulin 5.2 g/dL (2.4-3.5) H 08/15/17 07:15 Albumin/Globulin Ratio 0.5 (1.1-2.2) L 10/04/16 07:15 Ur Specific [place] 1.028 (1.010-1.025) H 10/02/16 17:00 - Clinical Findings Intake & Output: Intake & Output 10/03/16 10/04/16 10/04/16 23:59 07:59 15:59 Intake Total 580 / 580 Balance 580 / 230 Weight 99.9 kg - Attending Attestation I examined this patient and my medical decision-making was reviewed with the Resident Physician. I agree with the documented findings, disposition and treatment plan as described except to the extent set forth below. Patient seen and examined. Labs, radiology, chart personally reviewed. Agree with resident's history and physical, assessment, plan with following comments: Patient is a poor historian and very difficult to get any reliable history from him. Patient had 2 small bore chest tube placed in the right side and decreased diminished breath sounds with dullness and I suspect this is more from recurrent pneumonia and I suspect aspiration pneumonia. If he had not had swallowing evaluation in the past, would recommend to repeat it. Broad- spectrum antibiotic is reasonable until finalize the culture of the fluid. tPA injected into the pleural cavity for suspicion of loculated effusion which I am hoping it will help. Thank you for the consultation.
[2016-10-04] MEDS: Furosemide 40 MG/4 ML VIAL IVP SCH ×2 (11:08→16:20)
[2016-10-04] MEDS: Levofloxacin 750 MG/150 ML 750 MG/150 ML BAG IVPB SCH (11:08)
[2016-10-04] MEDS: Folic Acid 1 MG TABLET PO SCH (11:11)
[2016-10-04] MEDS: predniSONE 20 MG TABLET PO SCH (11:11)
[2016-10-04] MEDS: FLUoxetine 20 MG CAPSULE PO SCH (11:11)
[2016-10-04] MEDS: clonazePAM 0.5 MG TABLET PO SCH ×2 (11:12→22:05)
[2016-10-04] MEDS: carBAMazepine 200 MG TABLET PO SCH ×2 (11:12→22:05)
[2016-10-04] MEDS: Metoprolol XL (24 HR) Succ 25 MG TAB.ER.24H PO SCH (12:05)
[2016-10-04 13:25] LABS: LDH,Pleural Fluid 370 Units/L (No Ref Range)
[2016-10-04 13:37] LABS: RBC,Pleural Fluid 0.045 M/mcL
[2016-10-04] MEDS ORDERED: Alteplase (Cathflo) 10 MG in 0.9 % Sodium Chloride 30 ML IVPB ONE (13:45)
[2016-10-04 13:49] LABS: Appearance of Pleural Fl Cloudy (Clear)
[2016-10-04] MEDS ORDERED: Alteplase (Cathflo) 10 MG in 0.9 % Sodium Chloride 30 ML IX ONE (14:00)
[2016-10-04] MEDS: Aspirin 81 MG TAB.CHEW PO SCH (16:20)
--- NOTE | 2016-10-04 16:54 | Internal Med Progress Note ---
<ReneLittle - Last Filed: 10/04/16 16:46> Date of Encounter: 10/04/16 Time of Encounter: 16:47 - Assessment and plan (1) Acute and chronic respiratory failure ([id number]) Current Visit: Yes Status: Acute Assessment and plan: CXR showed increasing right sided opacity and moderate right pleural effusion. multifactorial in setting of diastolic CHF, acute on chronic respiratory failure , noncompliance with BIPAP and oxygen. recently lasix increased from 40mg to 60 mg daily. last hospitalization blood cultures positive for MSSA. was on ancef and discharged on levaquin to complete 10 day course. was also d/c on continuous oxygen and BiPAP, and has not been compliant. usp unable to obtain BiPAP. exudative pleural effusion: gram stain and culture pending. Plan: BiPAP at night steroid taper appreciate pulm recs s/p right sided chest tube placement x2, draining serosanguinous fluid. blood cultures pending pleural fluid gram stain and cultures pending. Levaquin and zosyn day 2 Qualifiers: Respiratory failure complication: hypoxia Qualified Code(s): J96.21 - Acute and chronic respiratory failure with hypoxia (2) Pneumonia Current Visit: No Status: Acute Assessment and plan: plan as above. Qualifiers: Pneumonia type: due to unspecified organism Laterality: right Lung location: lower lobe of lung Qualified Code(s): J18.1 - Lobar pneumonia, unspecified organism (3) Bipolar 1 disorder Current Visit: No Status: Chronic Assessment and plan: continue home meds. (4) Diabetes mellitus Current Visit: No Status: Chronic Assessment and plan: SSI, hold metformin ACHS accuchecks Diabetic diet Qualifiers: Diabetes mellitus type: type 2 Diabetes mellitus complication status: without complication Diabetes mellitus custodial insulin use: without terminal operations supervisor use Qualified Code(s): E11.9 - Type 2 diabetes mellitus without complications (5) Diastolic CHF Current Visit: No Status: Chronic Assessment and plan: 40mg lasix BID I/O daily weights. patient diuresing well. Qualifiers: Congestive heart failure chronicity: chronic Qualified Code(s): I50.32 - Chronic diastolic (congestive) heart failure (6) DVT prophylaxis Current Visit: No Status: Chronic Assessment and plan: lovenox SQ - Subjective Interval history: 71 year old male evaluated at bedside. patient is laying in bed, status post chest tube placement x2 on right side. patient appears comfortable and does not appear to be in any acute distress. - Constitutional Vitals: Temp Pulse Resp BP Pulse Ox 97.6 F 106 22 101/60 92 10/04/16 16:02 10/04/16 16:02 10/04/16 16:02 10/04/16 16:02 10/04/16 16:02 General appearance: Present: cooperative, no acute distress Exam: patient appears to have hx of MRDD, cannot properly answer questions. - Head Head exam: Present: atraumatic, normocephalic - Neck Neck exam general surgery: Present: supple, trachea midline - Respiratory Additional comments: clear to ausculatation bilaterally anteriorly. patient has two chest tubes placed on right side. - Cardiovascular Cardiovascular exam: Present: RRR, +S1, +S2 - GI/Abdominal GI/Abdominal exam: Present: soft. Absent: distended, tenderness - Extremities Exam Extremities exam: Absent: cyanotic, pedal edema - Neurological Exam Neurological exam: Present: alert Additional comments: patient is not oriented. he repeats questions but does not answer questions. - Psychiatric Psychiatric exam: Present: normal affect, normal mood - Skin Skin exam: Present: intact Internal Medicine: Result - Labs CBC & Chem 7: 10/04/16 07:15 10/04/16 07:15 Labs: Short CBC 10/04/16 Range/Units 07:15 WBC 10.6 (4.3-11.1) K/mcL Hgb 11.0 L (12.9-16.9) g/dL Hct 34.5 L (37.5-50.1) % Plt Count 322 (140-400) K/mcL Neutrophils # 7.6 (1.6-8.9) K/mcL BMP 10/04/16 07:15 Sodium 136 Potassium 4.0 Chloride 100 Carbon Dioxide 28 BUN 21 Creatinine 0.84 Glucose 114 H Calcium 8.5 L Liver Function 10/04/16 Range/Units 07:15 Total Bilirubin 0.3 (0.2-1.2) mg/dL AST 15 (5-34) Units/L ALT 7 (0-55) Units/L Alkaline Phosphatase 178 H (38-126) Units/L Albumin 2.5 L (3.5-5.0) g/dL - ABG Interpretation ABG results: ABG ABG pH 7.41 pH Units (7.32-7.45) 10/04/16 05:10 ABG pCO2 48 mmHg (35-45) H 10/04/16 05:10 ABG pO2 54 mmHg (85-104) L 10/04/16 05:10 ABG O2 Saturation 88 % (95-98) L 10/04/16 05:10 PT/INR, D-dimer PT 16.9 Seconds (9.4-12.1) H 10/04/16 07:15 - Impressions Impressions Thoracentesis 10/04/16 00:00 IMPRESSION: CT-guided placement of two right-sided chest tubes secondary to a large, loculated pleural effusion. No immediate complications. D/ / 10/04/2016 12:51:35 Damián Bhatti MD / cruz Interpreting Provider: Damián Bhatti MD Consult Discharge Plan - Plan Referrals: Edelmira Brennan MD [Primary Care Provider] - (web request sent on 10/03/16) <Ameya Gann P - Last Filed: 10/04/16 17:33> Date of Encounter: 10/04/16 - Constitutional Vitals: Temp Pulse Resp BP Pulse Ox 97.6 F 106 22 101/60 92 10/04/16 16:02 10/04/16 16:02 10/04/16 16:02 10/04/16 16:02 10/04/16 16:02 Internal Medicine: Result - Labs CBC & Chem 7: 10/04/16 07:15 10/04/16 07:15 Labs: Short CBC 10/04/16 Range/Units 07:15 WBC 10.6 (4.3-11.1) K/mcL Hgb 11.0 L (12.9-16.9) g/dL Hct 34.5 L (37.5-50.1) % Plt Count 322 (140-400) K/mcL Neutrophils # 7.6 (1.6-8.9) K/mcL BMP 10/04/16 07:15 Sodium 136 Potassium 4.0 Chloride 100 Carbon Dioxide 28 BUN 21 Creatinine 0.84 Glucose 114 H Calcium 8.5 L Liver Function 10/04/16 Range/Units 07:15 Total Bilirubin 0.3 (0.2-1.2) mg/dL AST 15 (5-34) Units/L ALT 7 (0-55) Units/L Alkaline Phosphatase 178 H (38-126) Units/L Albumin 2.5 L (3.5-5.0) g/dL - ABG Interpretation ABG results: ABG ABG pH 7.41 pH Units (7.32-7.45) 10/04/16 05:10 ABG pCO2 48 mmHg (35-45) H 10/04/16 05:10 ABG pO2 54 mmHg (85-104) L 10/04/16 05:10 ABG O2 Saturation 88 % (95-98) L 10/04/16 05:10 PT/INR, D-dimer PT 16.9 Seconds (9.4-12.1) H 10/04/16 07:15 - Impressions Impressions Thoracentesis 10/04/16 00:00 IMPRESSION: CT-guided placement of two right-sided chest tubes secondary to a large, loculated pleural effusion. No immediate complications. D/ / 10/04/2016 12:51:35 Damián Bhatti MD / cruz Interpreting Provider: Damián Bhatti MD - Attending Attestation I examined this patient and my medical decision-making was reviewed with the Resident Physician. I agree with the documented findings, disposition and treatment plan as described except to the extent set forth below.
[2016-10-04] MEDS ORDERED: 0.9 % Sodium Chloride 500 ML IVC ONE ×2 (20:23→22:15)
[2016-10-04] MEDS: (Cariprazine Hcl [Vraylar] 1.5 MG) PO SCH (22:06)
[2016-10-05] MEDS: Piperacillin/Tazobactam 3.375 GM in D5% in Water (Mini-Bag+) 100 ML IVPB SCH ×4 (00:15→23:21)
[2016-10-05] MEDS ORDERED: 0.9 % Sodium Chloride 1,000 ML IVC ONE (01:13)
[2016-10-05 03:40] LABS: Total Protein,Pleural Fluid 5.1 g/dL (No Ref Range)
[2016-10-05] MEDS ORDERED: 0.9 % Sodium Chloride 500 ML IVC ONE (04:02)
[2016-10-05] MEDS: *HR* Enoxaparin 40 MG/0.4 ML SYRINGE SQ SCH (04:32)
[2016-10-05 04:40] LABS: Basophils % 0.2 %; Eosinophils # 0.1 K/mcL (0.0-0.6); Eosinophils % 0.4 %; Hematocrit 33.8 % (37.5-50.1); Hemoglobin 10.8 g/dL (12.9-16.9); Immature Granulocytes % 1.9 % (0-4); Lymphocytes # 1.3 K/mcL (0.6-4.6); Lymphocytes % 8.2 %; Mean Corpuscular Hemoglobin 29.6 pg (28.0-33.3); Mean Corpuscular Volume 92.6 fL (83.0-100.0); Mean Platelet Volume 9.3 fL (9.4-12.4); Monocytes # 1.4 K/mcL (0.0-1.3); Monocytes % 8.7 %; Neutrophils # 12.5 K/mcL (1.6-8.9); Platelet Count 318 K/mcL (140-400); Red Blood Count 3.65 M/mcL (4.19-5.50); Red Cell Distribution Width 15.4 % (11.5-14.5); Segmented Neutrophils % 80.6 %
[2016-10-05 04:52] LABS: Calcium 7.6 mg/dL (8.6-10.8); Potassium 4.5 mEq/L (3.5-4.5)
[2016-10-05] MEDS ORDERED: 0.9 % Sodium Chloride 1,000 ML ONE (07:36)
[2016-10-05] MEDS ORDERED: Albumin 25% 25gram/100mL 25 GM/100 ML IV.SOLN IVC ONE (07:44)
[2016-10-05] MEDS: clonazePAM 0.5 MG TABLET PO SCH ×2 (08:25→20:12)
[2016-10-05] MEDS: Metoprolol XL (24 HR) Succ 25 MG TAB.ER.24H PO SCH (08:25)
[2016-10-05] MEDS: carBAMazepine 200 MG TABLET PO SCH ×2 (08:35→20:12)
[2016-10-05] MEDS: Folic Acid 1 MG TABLET PO SCH (08:35)
[2016-10-05] MEDS: predniSONE 20 MG TABLET PO SCH (08:36)
[2016-10-05] MEDS: FLUoxetine 20 MG CAPSULE PO SCH (08:37)
[2016-10-05] MEDS: Insulin LISPRO 300 UNITS/3 ML VIAL SQ SCH ×4 (08:48→20:28)
--- NOTE | 2016-10-05 09:51 | Pulmonology Progress Note ---
Date of Encounter: 10/05/16 Time of Encounter: 08:05 Assessment and Plan (1) Sepsis Current Visit: No Status: Suspected Source most likely is from pneumonia and his hypotension could be from diuresis and mild elevation of his leukocytosis from his baseline could be stress related after chest tube placement, however infection in the differential diagnosis even though pleural fluid is no bacteria so far. Continue broad- spectrum antibiotic and lactic acid is not elevated. Fluid resuscitation is recommended. If no improvement after resuscitation and if patient needs vasopressors, then needs to be transferred to ICU. Qualifiers: Sepsis type: sepsis due to unspecified organism Qualified Code(s): A41.9 - Sepsis, unspecified organism (2) HCAP (healthcare-associated pneumonia) Current Visit: Yes Status: Acute (3) Pleural effusion Current Visit: Yes Status: Acute Reviewed pleural fluid analysis which is exudative and chest tubes tube still draining to continue monitor. Review chest x-ray which was improvement. Will plan to remove chest tube if the fluid less than 150 mL. Subjective Principal diagnosis: Pleural effusion Interval history: Patient was found to have low blood pressure this morning, but he is a poor historian and very difficult to communicate with the patient Objective PUL Vital signs: Last Vital Signs Temp 98.1 F 10/05/16 07:20 Pulse 82 10/05/16 07:20 Resp 20 10/05/16 07:20 BP 77/52 10/05/16 09:14 Pulse Ox 89 10/05/16 07:20 General appearance: appears uncomfortable Eyes: nonicteric Neck: supple Effort: mildly labored Auscultation: left: clear, right: diminished breath sounds Percussion: right: dull (2 small bore chest tube in the right side) Cardiovascular: regular rate and rhythm Gastrointestinal: normoactive bowel sounds unable to assess due to mental status other (Patient with MRDD) Results - Laboratory Findings CBC and BMP: 10/05/16 04:31 10/05/16 04:31 ABG ABG pH 7.41 pH Units (7.32-7.45) 10/04/16 05:10 ABG pCO2 48 mmHg (35-45) H 10/04/16 05:10 ABG pO2 54 mmHg (85-104) L 10/04/16 05:10 ABG O2 Saturation 88 % (95-98) L 10/04/16 05:10 PT/INR, D-dimer PT 16.9 Seconds (9.4-12.1) H 10/04/16 07:15 Abnormal lab findings: Abnormal lab results WBC 15.5 K/mcL (4.3-11.1) H 10/05/16 04:31 RBC 3.65 M/mcL (4.19-5.50) L 10/05/16 04:31 Hgb 10.8 g/dL (12.9-16.9) L 10/05/16 04:31 Hct 33.8 % (37.5-50.1) L 10/05/16 04:31 RDW 15.4 % (11.5-14.5) H 10/05/16 04:31 MPV 9.3 fL (9.4-12.4) L 10/05/16 04:31 Neutrophils # 12.5 K/mcL (1.6-8.9) H 10/05/16 04:31 Monocytes # 1.4 K/mcL (0.0-1.3) H 10/05/16 04:31 PT 16.9 Seconds (9.4-12.1) H 10/04/16 07:15 APTT 37.8 Seconds (26.0-36.0) H 10/02/16 12:53 ABG pCO2 48 mmHg (35-45) H 10/04/16 05:10 ABG pO2 54 mmHg (85-104) L 10/04/16 05:10 ABG HCO3 30.4 mEQ/L (21-27) H 10/04/16 05:10 ABG Total CO2 31.9 mEq/L (20-26) H 10/04/16 05:10 ABG O2 Saturation 88 % (95-98) L 10/04/16 05:10 ABG Base Excess 5.0 mEq/L (-2.0 to 3.0) H 10/04/16 05:10 Sodium 132 mEq/L (136-145) L 10/05/16 04:31 BUN 36 mg/dL (8-26) H D 10/05/16 04:31 Creatinine 2.22 mg/dL (0.72-1.25) H D 10/05/16 04:31 Est GFR ( Amer) 36 (> 60) L 10/05/16 04:31 Est GFR (Non-Af Amer) 29 (> 60) L 10/05/16 04:31 Glucose 150 mg/dL (70-99) H 10/05/16 04:31 POC Glucose 121 (58-89) H 10/04/16 20:56 Calcium 7.6 mg/dL (8.6-10.8) L 10/05/16 04:31 Alkaline Phosphatase 178 Units/L (38-126) H 10/04/16 07:15 Albumin 2.5 g/dL (3.5-5.0) L 10/04/16 07:15 Globulin 5.2 g/dL (2.4-3.5) H 10/04/16 07:15 Albumin/Globulin Ratio 0.5 (1.1-2.2) L 10/04/16 07:15 Ur Specific [place] 1.028 (1.010-1.025) H 10/02/16 17:00 Pleural Appearance Cloudy (Clear) A 10/04/16 09:50 Pleural RBC 0.045 M/mcL (0.000-0.002) H 10/04/16 09:50 - Microbiology Findings Microbiology Findings: Microbiology, Last 48 Hours 10/04/16 09:50 Body Fluid Culture - Preliminary Pleural Fluid - Diagnostic Findings Chest x-ray: report reviewed, image reviewed - Clinical Findings Intake & Output: Intake & Output 10/04/16 10/05/16 10/05/16 23:59 07:59 15:59 Intake Total 1060 / 1060 100 / 100 Output Total 3255 / 3255 70 / 70 Balance -2195 / -2195 30 / 30 Weight 97.9 kg Consult Discharge Plan - Plan Referrals: Edelmira Brennan MD [Primary Care Provider] - (web request sent on 10/03/16)
--- NOTE | 2016-10-05 10:59 | Internal Med Progress Note ---
<Little López - Last Filed: 10/05/16 16:11> Date of Encounter: 10/05/16 Time of Encounter: 10:27 - Assessment and plan (1) Acute and chronic respiratory failure ([id number]) Current Visit: Yes Status: Acute Assessment and plan: CXR showed increasing right sided opacity and moderate right pleural effusion. multifactorial in setting of diastolic CHF, acute on chronic respiratory failure , noncompliance with BIPAP and oxygen. recently home dose lasix increased from 40mg to 60 mg daily. last hospitalization blood cultures positive for MSSA. was on ancef and discharged on levaquin to complete 10 day course. was also d/c on continuous oxygen and BiPAP, and has not been compliant. custodial unable to obtain BiPAP. exudative pleural effusion: gram stain and culture pending. s/p right chest tube placement x2 on 10/04/16 Plan: BiPAP at night appreciate pulm recs blood cultures continue to show no growth. pleural fluid gram stain and cultures show no growth Levaquin and zosyn day 3 patient hypotensive overnight despite multiple fluid boluses have transferred to 2N, if still hypotensive may need transfer to ICU continue maintenance fluids increased WBC from yesterday, could be reactive from chest tube placement. lactatic acid 1.1 continue ABX, monitor white count. Qualifiers: Respiratory failure complication: hypoxia Qualified Code(s): J96.21 - Acute and chronic respiratory failure with hypoxia (2) EDDIE (acute kidney injury) Current Visit: No Status: Acute Assessment and plan: likely secondary to over diuresis. plan: stopped lasix hold lisinopril and nephrotoxic agents. hold BP meds secondary to hypotension. (3) Pneumonia Current Visit: No Status: Acute Assessment and plan: plan as above. Qualifiers: Pneumonia type: due to unspecified organism Laterality: right Lung location: lower lobe of lung Qualified Code(s): J18.1 - Lobar pneumonia, unspecified organism (4) Bipolar 1 disorder Current Visit: No Status: Chronic Assessment and plan: continue home meds. (5) Diabetes mellitus Current Visit: No Status: Chronic Assessment and plan: SSI, hold metformin ACHS accuchecks Diabetic diet Qualifiers: Diabetes mellitus type: type 2 Diabetes mellitus complication status: without complication Diabetes mellitus half-way insulin use: without half-way use Qualified Code(s): E11.9 - Type 2 diabetes mellitus without complications (6) Diastolic CHF Current Visit: No Status: Chronic Assessment and plan: stop diuresis due to hypotension good urine output. continue to monitor. Qualifiers: Congestive heart failure chronicity: chronic Qualified Code(s): I50.32 - Chronic diastolic (congestive) heart failure (7) DVT prophylaxis Current Visit: No Status: Chronic Assessment and plan: lovenox SQ - Subjective Interval history: 71 year old male evaluated at bedside. patient was hypotensive most of the night and received 2.5L fluid boluses, and still remains hypotensive. - Constitutional Vitals: Temp Pulse Resp BP Pulse Ox 97.8 F 76 17 92/60 89 10/05/16 09:52 10/05/16 09:52 10/05/16 09:52 10/05/16 09:52 10/05/16 07:20 General appearance: Present: cooperative, no acute distress Exam: patient does not respond to questions but is cooperative - Head Head exam: Present: atraumatic, normocephalic - Neck Neck exam general surgery: Present: supple, trachea midline - Respiratory Respiratory exam: Present: CTAB Additional comments: two right sided chest tubes in place draining serosanguinous fluid. clear to auscultation anteriorly. - Cardiovascular Cardiovascular exam: Present: RRR, +S1, +S2 - GI/Abdominal GI/Abdominal exam: Present: soft. Absent: distended, tenderness Additional comments: colostomy in place with solid stool present. - Extremities Exam Extremities exam: Absent: cyanotic, pedal edema - Neurological Exam Neurological exam: Present: alert - Skin Skin exam: Present: intact Internal Medicine: Result - Labs CBC & Chem 7: 10/05/16 04:31 10/05/16 04:31 Labs: Short CBC 10/05/16 Range/Units 04:31 WBC 15.5 H (4.3-11.1) K/mcL Hgb 10.8 L (12.9-16.9) g/dL Hct 33.8 L (37.5-50.1) % Plt Count 318 (140-400) K/mcL Neutrophils # 12.5 H (1.6-8.9) K/mcL BMP 10/05/16 04:31 Sodium 132 L Potassium 4.5 Chloride 98 Carbon Dioxide 27 BUN 36 H D Creatinine 2.22 H D Glucose 150 H Calcium 7.6 L - ABG Interpretation ABG results: ABG ABG pH 7.41 pH Units (7.32-7.45) 10/04/16 05:10 ABG pCO2 48 mmHg (35-45) H 10/04/16 05:10 ABG pO2 54 mmHg (85-104) L 10/04/16 05:10 ABG O2 Saturation 88 % (95-98) L 10/04/16 05:10 PT/INR, D-dimer PT 16.9 Seconds (9.4-12.1) H 10/04/16 07:15 - Impressions Impressions Thoracentesis 10/04/16 00:00 IMPRESSION: CT-guided placement of two right-sided chest tubes secondary to a large, loculated pleural effusion. No immediate complications. D/ / 10/04/2016 12:51:35 Damián Bhatti MD / [facility] [email or web address] Interpreting Provider: Damián Bhatti MD Chest X-Ray 10/05/16 07:00 IMPRESSION: 2 pleural pigtail catheters project over the inferior right hemithorax. Small right pleural effusion and right mid lung opacity have improved since the prior examination. D/ / 10/05/2016 07:36:45 Jurgen Pat MD / [facility] Interpreting Provider: Jurgen Pat MD Consult Discharge Plan - Plan Referrals: Edelmira Brennan MD [Primary Care Provider] - (web request sent on 10/03/16) <Ameya Gann P - Last Filed: 10/05/16 18:19> Date of Encounter: 10/05/16 - Constitutional Vitals: Temp Pulse Resp BP Pulse Ox 98.4 F 72 20 90/70 94 10/05/16 14:55 10/05/16 14:55 10/05/16 14:55 10/05/16 14:55 10/05/16 14:55 Internal Medicine: Result - Labs CBC & Chem 7: 10/05/16 04:31 10/05/16 04:31 Labs: Short CBC 10/05/16 Range/Units 04:31 WBC 15.5 H (4.3-11.1) K/mcL Hgb 10.8 L (12.9-16.9) g/dL Hct 33.8 L (37.5-50.1) % Plt Count 318 (140-400) K/mcL Neutrophils # 12.5 H (1.6-8.9) K/mcL BMP 10/05/16 04:31 Sodium 132 L Potassium 4.5 Chloride 98 Carbon Dioxide 27 BUN 36 H D Creatinine 2.22 H D Glucose 150 H Calcium 7.6 L - ABG Interpretation ABG results: ABG ABG pH 7.41 pH Units (7.32-7.45) 10/04/16 05:10 ABG pCO2 48 mmHg (35-45) H 10/04/16 05:10 ABG pO2 54 mmHg (85-104) L 10/04/16 05:10 ABG O2 Saturation 88 % (95-98) L 10/04/16 05:10 PT/INR, D-dimer PT 16.9 Seconds (9.4-12.1) H 10/04/16 07:15 - Impressions Impressions Chest X-Ray 10/05/16 07:00 IMPRESSION: 2 pleural pigtail catheters project over the inferior right hemithorax. Small right pleural effusion and right mid lung opacity have improved since the prior examination. D/ / 10/05/2016 07:36:45 Jurgen Pat MD / [facility] Interpreting Provider: Jurgen Pat MD - Attending Attestation I examined this patient and my medical decision-making was reviewed with the Resident Physician. I agree with the documented findings, disposition and treatment plan as described except to the extent set forth below.
[2016-10-05] MEDS ORDERED: 0.9 % Sodium Chloride 1,000 ML IVC SCH ×2 (13:30→16:09)
[2016-10-05] MEDS: (Cariprazine Hcl [Vraylar] 1.5 MG) PO SCH (20:13)
[2016-10-06] MEDS ORDERED: *HR* Enoxaparin 30 MG/0.3 ML SYRINGE SQ SCH (06:00)
[2016-10-06 06:02] LABS: Basophils % 0.3 %; Eosinophils # 0.1 K/mcL (0.0-0.6); Eosinophils % 0.6 %; Hematocrit 28.6 % (37.5-50.1); Lymphocytes # 1.1 K/mcL (0.6-4.6); Lymphocytes % 9.4 %; Mean Corpuscular HGB Conc 32.2 g/dL (31.6-35.5); Mean Corpuscular Hemoglobin 30.1 pg (28.0-33.3); Mean Corpuscular Volume 93.5 fL (83.0-100.0); Monocytes # 1.3 K/mcL (0.0-1.3); Monocytes % 11.2 %; Platelet Count 229 K/mcL (140-400); Red Blood Count 3.06 M/mcL (4.19-5.50); Red Cell Distribution Width 15.3 % (11.5-14.5); Segmented Neutrophils % 77.5 %
[2016-10-06 06:08] LABS: Hemoglobin 9.2 g/dL (12.9-16.9)
[2016-10-06 06:13] LABS: Calcium 7.3 mg/dL (8.6-10.8); Potassium 4.1 mEq/L (3.5-4.5)
[2016-10-06] MEDS: Insulin LISPRO 300 UNITS/3 ML VIAL SQ SCH ×4 (07:20→20:09)
[2016-10-06] MEDS: 0.9 % Sodium Chloride 1,000 ML IVC SCH (07:37)
[2016-10-06] MEDS: Piperacillin/Tazobactam 3.375 GM in D5% in Water (Mini-Bag+) 100 ML IVPB SCH ×3 (07:38→23:39)
[2016-10-06] MEDS: predniSONE 20 MG TABLET PO SCH (07:39)
[2016-10-06] MEDS: clonazePAM 0.5 MG TABLET PO SCH ×2 (07:39→19:58)
[2016-10-06] MEDS: Folic Acid 1 MG TABLET PO SCH (07:39)
[2016-10-06] MEDS: FLUoxetine 20 MG CAPSULE PO SCH (07:39)
[2016-10-06] MEDS: carBAMazepine 200 MG TABLET PO SCH ×2 (07:39→19:58)
[2016-10-06] MEDS ORDERED: Levofloxacin 750 MG/150 ML 750 MG/150 ML BAG IVPB SCH (09:00)
--- NOTE | 2016-10-06 14:44 | Electrocardiograph Report ---
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
--- NOTE | 2016-10-06 16:44 | Pulmonology Progress Note ---
Date of Encounter: 10/06/16 Time of Encounter: 10:40 Assessment and Plan (1) Sepsis Current Visit: No Status: Suspected Blood pressure has improved since yesterday with fluid resuscitation and holding diuresis Qualifiers: Sepsis type: sepsis due to unspecified organism Qualified Code(s): A41.9 - Sepsis, unspecified organism (2) HCAP (healthcare-associated pneumonia) Current Visit: Yes Status: Acute (3) Pleural effusion Current Visit: Yes Status: Acute Reviewed pleural fluid analysis which is exudative and chest tubes tube still draining to continue monitor. Review chest x-ray which was improvement. Will plan to remove chest tube if the fluid less than 150 mL. 10/06 overall chest tube is not draining and will check chest x-ray tomorrow and if still drainage placed and 150 male will plan to remove chest tube. Otherwise his blood pressure is better. Subjective Principal diagnosis: Pleural effusion Interval history: History difficult to communicate with the patient but he denies any complaint and his blood pressure has stabilized. Objective PUL Vital signs: Last Vital Signs Temp 97.8 F 10/06/16 16:21 Pulse 76 10/06/16 16:21 Resp 18 10/06/16 16:21 BP 114/60 10/06/16 16:21 Pulse Ox 93 10/06/16 16:21 General appearance: no acute distress ENT: oropharynx moist Neck: supple Effort: normal Auscultation: left: rhonchi, right: diminished breath sounds Percussion: right: dull (Chest tube in the right side) Cardiovascular: regular rate and rhythm Gastrointestinal: normoactive bowel sounds Extremities: no cyanosis, edema normal mental status, non-focal exam Results - Laboratory Findings CBC and BMP: 10/06/16 04:39 10/06/16 04:39 ABG ABG pH 7.41 pH Units (7.32-7.45) 10/04/16 05:10 ABG pCO2 48 mmHg (35-45) H 10/04/16 05:10 ABG pO2 54 mmHg (85-104) L 10/04/16 05:10 ABG O2 Saturation 88 % (95-98) L 10/04/16 05:10 PT/INR, D-dimer PT 16.9 Seconds (9.4-12.1) H 10/04/16 07:15 Abnormal lab findings: Abnormal lab results WBC 11.6 K/mcL (4.3-11.1) H 10/06/16 04:39 RBC 3.06 M/mcL (4.19-5.50) L 10/06/16 04:39 Hgb 9.2 g/dL (12.9-16.9) L D 10/06/16 04:39 Hct 28.6 % (37.5-50.1) L 10/06/16 04:39 RDW 15.3 % (11.5-14.5) H 10/06/16 04:39 Neutrophils # 9.0 K/mcL (1.6-8.9) H 10/06/16 04:39 PT 16.9 Seconds (9.4-12.1) H 10/04/16 07:15 APTT 37.8 Seconds (26.0-36.0) H 10/02/16 12:53 ABG pCO2 48 mmHg (35-45) H 10/04/16 05:10 ABG pO2 54 mmHg (85-104) L 10/04/16 05:10 ABG HCO3 30.4 mEQ/L (21-27) H 10/04/16 05:10 ABG Total CO2 31.9 mEq/L (20-26) H 10/04/16 05:10 ABG O2 Saturation 88 % (95-98) L 10/04/16 05:10 ABG Base Excess 5.0 mEq/L (-2.0 to 3.0) H 10/04/16 05:10 Sodium 134 mEq/L (136-145) L 10/06/16 04:39 BUN 45 mg/dL (8-26) H 10/06/16 04:39 Creatinine 2.52 mg/dL (0.72-1.25) H 10/06/16 04:39 Est GFR ( Amer) 31 (> 60) L 10/06/16 04:39 Est GFR (Non-Af Amer) 25 (> 60) L 10/06/16 04:39 Glucose 118 mg/dL (70-99) H 10/06/16 04:39 POC Glucose 166 (58-89) H 10/05/16 20:27 Calcium 7.3 mg/dL (8.6-10.8) L 10/06/16 04:39 Alkaline Phosphatase 178 Units/L (38-126) H 10/04/16 07:15 Albumin 2.5 g/dL (3.5-5.0) L 10/04/16 07:15 Globulin 5.2 g/dL (2.4-3.5) H 10/04/16 07:15 Albumin/Globulin Ratio 0.5 (1.1-2.2) L 10/04/16 07:15 Ur Specific [place] 1.028 (1.010-1.025) H 10/02/16 17:00 Pleural Appearance Cloudy (Clear) A 10/04/16 09:50 Pleural RBC 0.045 M/mcL (0.000-0.002) H 10/04/16 09:50 - Microbiology Findings Microbiology Findings: Microbiology, Last 48 Hours 10/04/16 09:50 Body Fluid Culture - Preliminary Pleural Fluid - Clinical Findings Intake & Output: Intake & Output 10/06/16 10/06/16 10/06/16 07:59 15:59 23:59 Intake Total 100 / 100 840 / 840 Output Total 600 / 600 900 / 900 Balance -500 / -500 -60 / -60 Weight 101.6 kg 101.6 kg Consult Discharge Plan - Plan Referrals: Edelmira Brennan MD [Primary Care Provider] - (DR. BRENNAN SEES THE PATIENT AT THE [facility])
[2016-10-06] MEDS: Aspirin 81 MG TAB.CHEW PO SCH (16:57)
--- NOTE | 2016-10-06 17:00 | Internal Med Progress Note ---
Date of Encounter: 10/06/16 Time of Encounter: 08:50 - Assessment and plan (1) Acute and chronic respiratory failure ([id number]) Current Visit: Yes Status: Acute Assessment and plan: Secondary to moderate right-sided pleural effusion and possible healthcare associated pneumonia - present on admission CXR - increasing right sided opacity and moderate right pleural effusion. multifactorial in setting of diastolic CHF, acute on chronic respiratory failure , noncompliance with BIPAP and oxygen. Exudative pleural effusion - negative culture s/p right chest tube placement x2 on 10/04/16 Continue BiPAP at night, continue IV Zosyn, continue IV fluids, hold Lasix in view of EDDIE Pulmonology following patient - managing chest tube last hospitalization - blood cultures + for MSSA, was on Ancef and discharged on levaquin to complete 10 day course was also d/c on continuous oxygen and BiPAP, and has not been compliant. fdc unable to obtain BiPAP. Qualifiers: Respiratory failure complication: hypoxia Qualified Code(s): J96.21 - Acute and chronic respiratory failure with hypoxia (2) Pleural effusion Current Visit: Yes Status: Acute Assessment and plan: Status post chest tube placement - chest x-ray seems to show improvement Pulmonology managing chest tube - plan to remove chest tube after repeat chest x -ray in a.m. (3) Pneumonia Current Visit: No Status: Acute Assessment and plan: Probable healthcare associated pneumonia - present on admission Continue IV Zosyn, on DuoNeb breathing treatment Cultures - no growth Qualifiers: Pneumonia type: due to unspecified organism Laterality: right Lung location: lower lobe of lung Qualified Code(s): J18.1 - Lobar pneumonia, unspecified organism (4) Diabetes mellitus Current Visit: No Status: Chronic Assessment and plan: Diabetes mellitus type 2, [id number], hyperglycemia Continue sliding scale insulin, hold metformin, ACHS accuchecks, Diabetic diet Qualifiers: Diabetes mellitus type: type 2 Diabetes mellitus complication status: without complication Diabetes mellitus detention insulin use: without termite treater use Qualified Code(s): E11.9 - Type 2 diabetes mellitus without complications (5) Bipolar 1 disorder Current Visit: No Status: Chronic Assessment and plan: continue Tegretol, clonazepam, fluoxetine (6) EDDIE (acute kidney injury) Current Visit: No Status: Acute Assessment and plan: Probably due to Lasix use - creatinine has worsened slightly hold lisinopril and avoid nephrotoxic agents (7) DVT prophylaxis Current Visit: No Status: Chronic Assessment and plan: Continue lovenox SQ - Time Spent With Patient 25 - 35 minutes - Subjective Interval history: Examined this morning. Patient is awake. Not in any distress. Patient is unable to provide any history due to probable severe MRDD. He is sitting up comfortably in bed. Tolerating oral diet. No fever. Hemodynamically stable. Pulmonology following patient. - Constitutional Vitals: Temp Pulse Resp BP Pulse Ox 97.8 F 76 18 114/60 93 10/06/16 16:21 10/06/16 16:21 10/06/16 16:21 10/06/16 16:21 10/06/16 16:21 General appearance: Present: cooperative, no acute distress, obese. Absent: answers questions appropriately Exam: Patient unable to provide any history due to probable MRDD - Head Head exam: Present: atraumatic - Eye Eye exam: Absent: scleral icterus - ENT ENT exam: Present: mucous membranes moist - Respiratory Respiratory exam: Present: decreased breath sounds (In the right side), rhonchi (Mild on left side). Absent: accessory muscle use, rales, tachypnea Additional comments: Chest tube in place on the right side - Cardiovascular Cardiovascular exam: Present: RRR, +S1, +S2 - GI/Abdominal GI/Abdominal exam: Present: soft. Absent: distended, firm, guarding, tenderness Additional comments: Colostomy bag in place - Extremities Exam Extremities exam: Present: radial pulses palpable and symmetrical. Absent: cyanotic, pedal edema - Neurological Exam Neurological exam: Present: no focal deficits. Absent: facial droop Additional comments: No obvious neurological deficits, patient is unable to provide any history due to MRDD, he is able to verbalize but keeps repeating the same words over and over again Internal Medicine: Result - Labs CBC & Chem 7: 10/06/16 04:39 10/06/16 04:39 Labs: Short CBC 10/06/16 Range/Units 04:39 WBC 11.6 H (4.3-11.1) K/mcL Hgb 9.2 L D (12.9-16.9) g/dL Hct 28.6 L (37.5-50.1) % Plt Count 229 (140-400) K/mcL Neutrophils # 9.0 H (1.6-8.9) K/mcL BMP 10/06/16 04:39 Sodium 134 L Potassium 4.1 Chloride 101 Carbon Dioxide 24 BUN 45 H Creatinine 2.52 H Glucose 118 H Calcium 7.3 L - ABG Interpretation ABG results: ABG ABG pH 7.41 pH Units (7.32-7.45) 10/04/16 05:10 ABG pCO2 48 mmHg (35-45) H 10/04/16 05:10 ABG pO2 54 mmHg (85-104) L 10/04/16 05:10 ABG O2 Saturation 88 % (95-98) L 10/04/16 05:10 PT/INR, D-dimer PT 16.9 Seconds (9.4-12.1) H 10/04/16 07:15 - Impressions Impressions Chest X-Ray 10/05/16 07:00 IMPRESSION: 2 pleural pigtail catheters project over the inferior right hemithorax. Small right pleural effusion and right mid lung opacity have improved since the prior examination. D/ / 10/05/2016 07:36:45 Jurgen Pat MD / [facility] Interpreting Provider: Jurgen Pat MD Consult Discharge Plan - Plan Referrals: Edelmira Brennan MD [Primary Care Provider] - (DR. BRENNAN SEES THE PATIENT AT THE [facility])
[2016-10-06] MEDS: (Cariprazine Hcl [Vraylar] 1.5 MG) PO SCH (19:59)
[2016-10-07] MEDS: 0.9 % Sodium Chloride 1,000 ML IVC SCH ×2 (05:21→23:37)
[2016-10-07 06:35] LABS: Potassium 5.1 mEq/L (3.5-4.5)
[2016-10-07 07:33] LABS: Basophils % 0.1 %; Eosinophils # 0.1 K/mcL (0.0-0.6); Eosinophils % 1.1 %; Hematocrit 27.4 % (37.5-50.1); Hemoglobin 8.7 g/dL (12.9-16.9); Immature Granulocytes % 0.6 % (0-4); Immature Platelets 1.2 % (1.1-6.1); Lymphocytes # 0.7 K/mcL (0.6-4.6); Lymphocytes % 6.4 %; Mean Corpuscular HGB Conc 31.8 g/dL (31.6-35.5); Mean Corpuscular Hemoglobin 29.5 pg (28.0-33.3); Mean Corpuscular Volume 92.9 fL (83.0-100.0); Mean Platelet Volume 9.2 fL (9.4-12.4); Monocytes % 9.6 %; Neutrophils # 8.5 K/mcL (1.6-8.9); Platelet Count 230 K/mcL (140-400); Red Blood Count 2.95 M/mcL (4.19-5.50); Red Cell Distribution Width 14.8 % (11.5-14.5); Segmented Neutrophils % 82.2 %
[2016-10-07] MEDS: carBAMazepine 200 MG TABLET PO SCH ×2 (08:27→20:15)
[2016-10-07] MEDS: Piperacillin/Tazobactam 3.375 GM in D5% in Water (Mini-Bag+) 100 ML IVPB SCH ×3 (08:27→23:36)
[2016-10-07] MEDS: clonazePAM 0.5 MG TABLET PO SCH ×2 (08:27→20:16)
[2016-10-07] MEDS: Insulin LISPRO 300 UNITS/3 ML VIAL SQ SCH ×4 (08:27→20:19)
[2016-10-07] MEDS: *HR* Heparin 5,000 UNIT/ML VIAL SQ SCH ×2 (08:27→20:16)
[2016-10-07] MEDS: Folic Acid 1 MG TABLET PO SCH (08:27)
[2016-10-07] MEDS: FLUoxetine 20 MG CAPSULE PO SCH (08:27)
[2016-10-07] MEDS: predniSONE 10 MG TABLET PO SCH (08:27)
--- NOTE | 2016-10-07 15:02 | Pulmonology Progress Note ---
Date of Encounter: 10/07/16 Time of Encounter: 11:30 Assessment and Plan (1) Sepsis Current Visit: No Status: Suspected Blood pressure has improved since yesterday with fluid resuscitation and holding diuresis Qualifiers: Sepsis type: sepsis due to unspecified organism Qualified Code(s): A41.9 - Sepsis, unspecified organism (2) HCAP (healthcare-associated pneumonia) Current Visit: Yes Status: Acute (3) Pleural effusion Current Visit: Yes Status: Acute Reviewed pleural fluid analysis which is exudative and chest tubes tube still draining to continue monitor. Review chest x-ray which was improvement. Will plan to remove chest tube if the fluid less than 150 mL. 10/06 overall chest tube is not draining and will check chest x-ray tomorrow and if still drainage placed and 150 male will plan to remove chest tube. Otherwise his blood pressure is better. 10/07 since there is only minimal drainage I removed one chest tube and if there is no significant drainage in next 24 hours, then remove the second chest tube. Discussed with primary team to consult cardiothoracic for evaluation of decortication since chest x-ray still not significantly improved. Subjective Principal diagnosis: Pleural effusion Interval history: There is no significant changes in his condition. Chest tubes are draining minimal fluid Objective PUL Vital signs: Last Vital Signs Temp 97.8 F 10/07/16 11:13 Pulse 75 10/07/16 11:13 Resp 20 10/07/16 11:13 BP 121/71 10/07/16 11:13 Pulse Ox 93 10/07/16 14:07 General appearance: appears uncomfortable Eyes: nonicteric ENT: oropharynx moist Neck: supple Effort: mildly labored Auscultation: left: rhonchi, right: diminished breath sounds (2 chest tubes) Cardiovascular: regular rate and rhythm Gastrointestinal: normoactive bowel sounds Extremities: no cyanosis non-focal exam Results - Laboratory Findings CBC and BMP: 10/07/16 07:21 10/07/16 05:51 ABG ABG pH 7.41 pH Units (7.32-7.45) 10/04/16 05:10 ABG pCO2 48 mmHg (35-45) H 10/04/16 05:10 ABG pO2 54 mmHg (85-104) L 10/04/16 05:10 ABG O2 Saturation 88 % (95-98) L 10/04/16 05:10 PT/INR, D-dimer PT 16.9 Seconds (9.4-12.1) H 10/04/16 07:15 Abnormal lab findings: Abnormal lab results RBC 2.95 M/mcL (4.19-5.50) L 10/07/16 07:21 Hgb 8.7 g/dL (12.9-16.9) L 10/07/16 07:21 Hct 27.4 % (37.5-50.1) L 10/07/16 07:21 RDW 14.8 % (11.5-14.5) H 10/07/16 07:21 MPV 9.2 fL (9.4-12.4) L 10/07/16 07:21 PT 16.9 Seconds (9.4-12.1) H 10/04/16 07:15 APTT 37.8 Seconds (26.0-36.0) H 10/02/16 12:53 ABG pCO2 48 mmHg (35-45) H 10/04/16 05:10 ABG pO2 54 mmHg (85-104) L 10/04/16 05:10 ABG HCO3 30.4 mEQ/L (21-27) H 10/04/16 05:10 ABG Total CO2 31.9 mEq/L (20-26) H 10/04/16 05:10 ABG O2 Saturation 88 % (95-98) L 10/04/16 05:10 ABG Base Excess 5.0 mEq/L (-2.0 to 3.0) H 10/04/16 05:10 Sodium 134 mEq/L (136-145) L 10/07/16 05:51 Potassium 5.1 mEq/L (3.5-4.5) H D 10/07/16 05:51 BUN 35 mg/dL (8-26) H D 10/07/16 05:51 Creatinine 1.73 mg/dL (0.72-1.25) H 10/07/16 05:51 Est GFR ( Amer) 48 (> 60) L 10/07/16 05:51 Est GFR (Non-Af Amer) 39 (> 60) L 10/07/16 05:51 Glucose 129 mg/dL (70-99) H 10/07/16 05:51 POC Glucose 183 (58-89) H 10/06/16 20:06 Calcium 8.0 mg/dL (8.6-10.8) L 10/07/16 05:51 Alkaline Phosphatase 178 Units/L (38-126) H 10/04/16 07:15 Albumin 2.5 g/dL (3.5-5.0) L 10/04/16 07:15 Globulin 5.2 g/dL (2.4-3.5) H 10/04/16 07:15 Albumin/Globulin Ratio 0.5 (1.1-2.2) L 10/04/16 07:15 Ur Specific [place] 1.028 (1.010-1.025) H 10/02/16 17:00 Pleural Appearance Cloudy (Clear) A 10/04/16 09:50 Pleural RBC 0.045 M/mcL (0.000-0.002) H 10/04/16 09:50 - Microbiology Findings Microbiology Findings: Microbiology, Last 48 Hours 10/04/16 09:50 Body Fluid Culture - Final Pleural Fluid - Diagnostic Findings Chest x-ray: report reviewed, image reviewed - Clinical Findings Intake & Output: Intake & Output 10/06/16 10/07/16 10/07/16 23:59 07:59 15:59 Intake Total 1337 / 1337 337 / 337 600 / 600 Output Total 575 / 575 625 / 625 200 / 200 Balance 762 / 762 -288 / -288 400 / 400 Weight 103.6 kg 103.6 kg Consult Discharge Plan - Plan Referrals: Edelmira Brennan MD [Primary Care Provider] - (DR. BRENNAN SEES THE PATIENT AT THE [facility])
--- NOTE | 2016-10-07 15:06 | Cardiothoracic Consult Note ---
Date of Encounter: 10/07/16 Time of Encounter: 15:04 - History of Present Illness Consult date: 10/07/16 History of present illness: Mr. Lubin is a 71 year old male History of present illness. The history is difficult to obtain. The patient mumbles and is unable to answer questions appropriately. He has had a problem with recurrent diastolic congestive heart failure and pneumonia. He recently was discharged after a left-sided pneumonia on antibiotics. He was also sent home on BiPAP and home oxygen, but was unable to obtain these in his nursing home. Presently, he was admitted with a right-sided loculated pleural effusion. He did undergo 2 chest tube placements in interventional radiology on October 04. The fluid was exudative, but the cultures were negative. In the last 24 hours the patient has been afebrile. His white blood cell count is 10,300. Past Med Surg Social Fam HX - Past Medical History Medical history: asthma, atrial fibrillation, CHF, coronary artery disease, diabetes, hyperlipidemia, hypertension, myocardial infarction, osteoporosis, other Psychiatric history: anxiety, bipolar, other - Past Surgical History Surgical History: colostomy, other - Social History Smoking Status: Never smoker Smokeless Tobacco Status: No Alcohol use: none Drug use: none Medications and Allergies Acetaminophen [Tylenol] 650 mg PO Q4HR PRN 04/03/15 [History] Alendronate Sodium [Fosamax] 70 mg PO TH 04/03/15 [History] Atorvastatin [Lipitor] 40 mg PO HS 04/03/15 [History] Cholecalciferol (Vitamin D3) [Vitamin D3] 1,000 unit PO DAILY 04/03/15 [History] Docusate Sodium [Colace] 200 mg PO BID 04/03/15 [History] FLUoxetine HCl [Prozac] 40 mg PO DAILY 04/03/15 [History] Folic Acid 1 mg PO DAILY 04/03/15 [History] Gemfibrozil [Lopid] 600 mg PO BID 04/03/15 [History] Lisinopril [Zestril] 10 mg PO DAILY 04/03/15 [History] Magnesium Hydroxide [Milk of Magnesia] 30 ml PO DAILY PRN 04/03/15 [History] Metformin HCl [Glucophage] 1,000 mg PO BID 04/03/15 [History] Polyethylene Glycol 3350 [MiraLAX bowel prep] 15 gm PO BID PRN #0 04/03/15 [ History] carBAMazepine [Tegretol] 400 mg PO HS 04/03/15 [History] clonazePAM [Klonopin] 0.5 mg PO BID 04/03/15 [History] Albuterol Neb [Proventil Neb] 2.5 mg IH Q4H PRN 09/22/15 [History] Mag Hydrox/Al Hydrox/Simeth [Adv Antacid-Antigas Liquid] 30 ml PO Q4H PRN #0 [History] Aurora-3 Fatty Acids/Fish Oil [Aurora-3 Fish Oil 1,000 mg Sfgl] 1,000 mg PO BID [History] carBAMazepine [Tegretol] 200 mg PO QAM 09/22/15 [History] Cariprazine HCl [Vraylar] 1.5 mg PO HS 09/13/16 [History] Aspirin 81 mg PO Q48H 09/15/16 [History] Loperamide [Imodium] 4 mg PO AD PRN 09/15/16 [History] Metoprolol XL (24 HR) Succ [Toprol Xl] 12.5 mg PO DAILY 09/15/16 [History] Furosemide [Lasix] 40 mg PO DAILY #90 tab 09/30/16 [Rx] Levofloxacin [Levaquin] 500 mg PO DAILY #2 tablet 09/30/16 [Rx] predniSONE [PredniSONE] See Taper PO DAILY 10/02/16 [History] 3 Allergy/AdvReac Type Severity Reaction Status Date / Time No Known Allergies Allergy Verified 09/22/15 09:12 All Systems Review: A 10-system review of systems was performed and is negative for pertinent findings except as documented above in the HPI. Physical Examination Vital Signs, Last 4 Hours Temp Pulse Resp BP Pulse Ox 10/07/16 14:07 93 10/07/16 11:13 97.8 F 75 20 121/71 92 Lungs are clear to percussion and auscultation. Heart is in a normal sinus rhythm. O2 saturation is 99. Chest x-ray reveals a right sided pleural effusion. Chest tube drainage is minimal. It looks like old blood and does not look infected. Cultures were negative. Impression. The patient has a loculated right pleural effusion. I do not think he has an empyema. I do not think he is a candidate for decortication. I would continue with chest tube drainage at this point. Results 10/07/16 07:21 10/07/16 05:51 Lab Results, Last 24 hours 10/07/16 10/07/16 05:51 07:21 WBC 10.3 Hgb 8.7 L Hct 27.4 L Plt Count 230 Sodium 134 L Potassium 5.1 H D Chloride 106 Carbon Dioxide 21 BUN 35 H D Creatinine 1.73 H Glucose 129 H Calcium 8.0 L Consult Discharge Plan - Plan Referrals: Edelmira Brennan MD [Primary Care Provider] - (DR. BRENNAN SEES THE PATIENT AT THE [facility])
--- NOTE | 2016-10-07 15:08 | Internal Med Progress Note ---
Date of Encounter: 10/07/16 Time of Encounter: 09:55 - Assessment and plan (1) Acute and chronic respiratory failure ([id number]) Current Visit: Yes Status: Acute Assessment and plan: Secondary to moderate right-sided pleural effusion and possible HCAP - present on admission - slowly improving CXR - increasing right sided opacity and moderate right pleural effusion. multifactorial in setting of diastolic CHF, acute on chronic respiratory failure , noncompliance with BIPAP and oxygen. Exudative pleural effusion - negative culture s/p right chest tube placement x2 on 10/04/16 Continue BiPAP at night, continue IV Zosyn, continue IV fluids, hold Lasix in view of EDDIE Pulmonology following patient - managing chest tube, appreciate input Cardiothoracic surgery consult for possible decortication last hospitalization - blood cultures + for MSSA, was on Ancef and discharged on levaquin to complete 10 day course was also d/c on continuous oxygen and BiPAP, and has not been compliant, [facility] unable to obtain BiPAP Qualifiers: Qualified Code(s): J96.21 - Acute and chronic respiratory failure with hypoxia (2) Pleural effusion Current Visit: Yes Status: Acute Assessment and plan: Status post chest tube placement - chest x-ray repeated, no significant improvement 1 chest tube removed today Pulmonology managing chest tube - appreciate input (3) Pneumonia Current Visit: No Status: Acute Assessment and plan: Probable healthcare associated pneumonia - present on admission Continue IV Zosyn, on DuoNeb breathing treatment Cultures - no growth Qualifiers: Qualified Code(s): J18.1 - Lobar pneumonia, unspecified organism (4) Diabetes mellitus Current Visit: No Status: Chronic Assessment and plan: Diabetes mellitus type 2, [id number], hyperglycemia Continue sliding scale insulin, hold metformin, ACHS accuchecks, Diabetic diet Qualifiers: Qualified Code(s): E11.9 - Type 2 diabetes mellitus without complications (5) Bipolar 1 disorder Current Visit: No Status: Chronic Assessment and plan: continue Tegretol, clonazepam, fluoxetine (6) EDDIE (acute kidney injury) Current Visit: No Status: Acute Assessment and plan: Probably due to Lasix use - creatinine slowly improving hold lisinopril, hold Lasix and avoid nephrotoxic agents (7) DVT prophylaxis Current Visit: No Status: Chronic Assessment and plan: Continue lovenox SQ - Time Spent With Patient 25 - 35 minutes - Subjective Interval history: Examined this morning. Patient is awake. Not in any distress. Patient is unable to provide any history due to probable severe MRDD. He is sitting up comfortably in bed. Tolerating oral diet. No fever. Hemodynamically stable. Pulmonology following patient. One chest tube has been removed today. Cardiothoracic surgery will evaluate patient. No other acute events or complaints. - Constitutional Vitals: Temp Pulse Resp BP Pulse Ox 97.8 F 75 20 121/71 93 10/07/16 11:13 10/07/16 11:13 10/07/16 11:13 10/07/16 11:13 10/07/16 14:07 General appearance: Present: cooperative, no acute distress, obese. Absent: answers questions appropriately Exam: Patient unable to provide any history due to probable MRDD - Head Head exam: Present: atraumatic - Eye Eye exam: Absent: scleral icterus - ENT ENT exam: Present: mucous membranes moist - Respiratory Respiratory exam: Present: decreased breath sounds (In the right side), rhonchi (Mild on the left side). Absent: wheezes, tachypnea Additional comments: Chest tube in place on the right side - Cardiovascular Cardiovascular exam: Present: RRR, +S1, +S2 - GI/Abdominal GI/Abdominal exam: Present: soft. Absent: distended, firm, guarding, tenderness Additional comments: Colostomy bag in place - Extremities Exam Extremities exam: Present: radial pulses palpable and symmetrical. Absent: cyanotic, pedal edema - Neurological Exam Neurological exam: Present: no focal deficits. Absent: facial droop Additional comments: No obvious neurological deficits, patient is unable to provide any history due to MRDD, he is able to verbalize but keeps repeating the same words over and over again Internal Medicine: Result - Labs CBC & Chem 7: 10/07/16 07:21 10/07/16 05:51 Labs: Short CBC 10/07/16 Range/Units 07:21 WBC 10.3 (4.3-11.1) K/mcL Hgb 8.7 L (12.9-16.9) g/dL Hct 27.4 L (37.5-50.1) % Plt Count 230 (140-400) K/mcL Neutrophils # 8.5 (1.6-8.9) K/mcL BMP 10/07/16 05:51 Sodium 134 L Potassium 5.1 H D Chloride 106 Carbon Dioxide 21 BUN 35 H D Creatinine 1.73 H Glucose 129 H Calcium 8.0 L - ABG Interpretation ABG results: ABG ABG pH 7.41 pH Units (7.32-7.45) 10/04/16 05:10 ABG pCO2 48 mmHg (35-45) H 10/04/16 05:10 ABG pO2 54 mmHg (85-104) L 10/04/16 05:10 ABG O2 Saturation 88 % (95-98) L 10/04/16 05:10 PT/INR, D-dimer PT 16.9 Seconds (9.4-12.1) H 10/04/16 07:15 - Impressions Impressions Chest X-Ray 10/07/16 07:00 IMPRESSION: 1. Right pleural effusion tracking to the apex, probably increased since the prior exam. Stable right pleural catheters. D/ / Isauro Miller MD / Isauro Miller MD Interpreting Provider: sIauro Miller MD Chest X-Ray 10/07/16 11:42 IMPRESSION: 1. Interval removal of 1 of the right-sided chest tubes. No pneumothorax. 2. Stable small, partially loculated right-sided pleural effusion and airspace disease in the right lung. 1 right chest tube remains in place. D/ / Damián Bhatti MD / Damián Bhatti MD Interpreting Provider: Damián Bhatti MD Consult Discharge Plan - Plan Referrals: Edelmira Brennan MD [Primary Care Provider] - (DR. BRENNNA SEES THE PATIENT AT THE [facility])
[2016-10-08 05:35] LABS: Basophils % 0.1 %; Eosinophils # 0.1 K/mcL (0.0-0.6); Eosinophils % 1.4 %; Hematocrit 25.9 % (37.5-50.1); Hemoglobin 8.2 g/dL (12.9-16.9); Immature Granulocytes % 0.5 % (0-4); Lymphocytes # 1.1 K/mcL (0.6-4.6); Lymphocytes % 11.3 %; Mean Corpuscular HGB Conc 31.7 g/dL (31.6-35.5); Mean Corpuscular Hemoglobin 29.6 pg (28.0-33.3); Mean Corpuscular Volume 93.5 fL (83.0-100.0); Monocytes # 0.8 K/mcL (0.0-1.3); Neutrophils # 7.2 K/mcL (1.6-8.9); Platelet Count 194 K/mcL (140-400); Red Blood Count 2.77 M/mcL (4.19-5.50); Red Cell Distribution Width 14.7 % (11.5-14.5); Segmented Neutrophils % 77.7 %
[2016-10-08 05:47] LABS: BUN/Creatinine Ratio 20 (6-26); Blood Urea Nitrogen 25 mg/dL (8-26); Calcium 8.5 mg/dL (8.6-10.8); Carbon Dioxide 24 mEq/L (19-29); Chloride 105 mEq/L (98-109); Glucose 113 mg/dL (70-99); Osmolality,Calculated 285 (280-300); Potassium 4.6 mEq/L (3.5-4.5); Sodium 135 mEq/L (136-145); eGFR For African Americans > 60 (> 60); eGFR For Non-African Americans 56 (> 60)
[2016-10-08] MEDS: Insulin LISPRO 300 UNITS/3 ML VIAL SQ SCH ×4 (07:26→21:03)
[2016-10-08] MEDS: predniSONE 10 MG TABLET PO SCH (08:02)
[2016-10-08] MEDS: FLUoxetine 20 MG CAPSULE PO SCH (08:02)
[2016-10-08] MEDS: *HR* Heparin 5,000 UNIT/ML VIAL SQ SCH ×2 (08:02→21:04)
[2016-10-08] MEDS: Folic Acid 1 MG TABLET PO SCH (08:02)
[2016-10-08] MEDS: carBAMazepine 200 MG TABLET PO SCH ×2 (08:02→21:03)
[2016-10-08] MEDS: clonazePAM 0.5 MG TABLET PO SCH ×2 (08:02→21:04)
[2016-10-08] MEDS: Metoprolol XL (24 HR) Succ 25 MG TAB.ER.24H PO SCH (08:02)
[2016-10-08] MEDS: Piperacillin/Tazobactam 3.375 GM in D5% in Water (Mini-Bag+) 100 ML IVPB SCH ×3 (08:03→23:36)
--- NOTE | 2016-10-08 08:46 | Cardiothoracic Progress Note ---
Date of Encounter: 10/08/16 Time of Encounter: 08:44 - Assessment and plan (1) Acute and chronic respiratory failure (olwch-[id number]) Current Visit: Yes Status: Acute The assessment and plan as outlined above was discussed with the patient and/or family members who expressed understanding and agreement. All questions were answered. I do not think that the patient has empyema. White blood cell count is down to 9000. He is afebrile. Cultures of the pleural fluid were negative. Chest tube drainage appears bloody. I would repeat the CT scan after the patient has had 2 chest tubes and TPA. Qualifiers: Respiratory failure complication: hypoxia Qualified Code(s): J96.21 - Acute and chronic respiratory failure with hypoxia - Subjective Interval history: The patient has no complaints. He is difficult to understand and mumbles. Vital Signs, Last 4 Hours Temp Pulse Resp BP Pulse Ox 10/08/16 07:14 98.3 F 75 18 131/82 96 Oxgyen Flow Rate Oxygen Flow Rate (LPM) 5 Clinical Data, last 8 Hours Output, Urine Amount 300 Output, Urine Amount 450 Output, Urine Amount 300 Weight 10/06/16 10/07/16 10/08/16 23:59 23:59 23:59 Weight 101.6 kg 103.6 kg 104 kg Lungs are clear to percussion and auscultation. Heart is in a normal sinus rhythm. Chest tube drainage is minimal and appears bloody. - Labs 10/08/16 04:54 10/08/16 04:54 Lab Results, Last 24 hours 10/08/16 10/08/16 04:54 04:54 WBC 9.3 Hgb 8.2 L Hct 25.9 L Plt Count 194 Sodium 135 L Potassium 4.6 H Chloride 105 Carbon Dioxide 24 BUN 25 D Creatinine 1.28 H Glucose 113 H Calcium 8.5 L Consult Discharge Plan - Plan Referrals: Edelmira Brennan MD [Primary Care Provider] - (DR. BRENNAN SEES THE PATIENT AT THE [facility])
--- NOTE | 2016-10-08 13:00 | Internal Med Progress Note ---
Date of Encounter: 10/08/16 Time of Encounter: 10:00 - Assessment and plan (1) Acute and chronic respiratory failure ([id number]-[id number]) Current Visit: Yes Status: Acute Assessment and plan: Secondary to moderate right-sided pleural effusion and possible HCAP - present on admission - slowly improving CXR - stable small partially loculated right-sided pleural effusion and airspace disease in right lung multifactorial in setting of diastolic CHF, acute on chronic respiratory failure , noncompliance with BIPAP and oxygen Exudative pleural effusion - negative culture Continue BiPAP at night, continue IV Zosyn, continue IV fluids, hold Lasix in view of EDDIE Pulmonology following patient - managing chest tube, appreciate input 1 chest tube has been removed Cardiothoracic surgery consult - recommendations reviewed, appreciate input last hospitalization - blood cultures + for MSSA, was on Ancef and discharged on levaquin to complete 10 day course was also d/c on continuous oxygen and BiPAP, and has not been compliant, [facility] unable to obtain BiPAP Qualifiers: Respiratory failure complication: hypoxia Qualified Code(s): J96.21 - Acute and chronic respiratory failure with hypoxia (2) Pleural effusion Current Visit: Yes Status: Acute Assessment and plan: Status post chest tube placement - chest x-ray repeated - small loculated right- sided pleural effusion 1 chest tube removed Pulmonology managing chest tube - appreciate input (3) Pneumonia Current Visit: No Status: Acute Assessment and plan: Probable healthcare associated pneumonia - present on admission Continue IV Zosyn, on DuoNeb breathing treatment Cultures - no growth Qualifiers: Pneumonia type: due to unspecified organism Laterality: right Lung location: lower lobe of lung Qualified Code(s): J18.1 - Lobar pneumonia, unspecified organism (4) Diabetes mellitus Current Visit: No Status: Chronic Assessment and plan: Diabetes mellitus type 2, fkd-kzjxphf-iewnlhvav, hyperglycemia Continue sliding scale insulin, hold metformin, ACHS accuchecks, Diabetic diet Qualifiers: Diabetes mellitus type: type 2 Diabetes mellitus complication status: without complication Diabetes mellitus 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 insulin use: without 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 use Qualified Code(s): E11.9 - Type 2 diabetes mellitus without complications (5) Bipolar 1 disorder Current Visit: No Status: Chronic Assessment and plan: continue Tegretol, clonazepam, fluoxetine (6) EDDIE (acute kidney injury) Current Visit: No Status: Acute Assessment and plan: Probably due to Lasix use - creatinine improving hold lisinopril, hold Lasix and avoid nephrotoxic agents (7) DVT prophylaxis Current Visit: No Status: Chronic Assessment and plan: Continue lovenox SQ - Time Spent With Patient 25 - 35 minutes - Subjective Interval history: Examined this morning. Patient is awake. Not in any distress. Patient is unable to provide any history due to probable severe MRDD. He is sitting up comfortably in bed. Tolerating oral diet. No fever. Hemodynamically stable. Pulmonology following patient. One chest tube has been removed. Chest x-ray reveals partially loculated right-sided pleural effusion and airspace disease in the right lung. Cardiothoracic surgery has evaluated patient, advised to continue chest tube drainage at this time. No other acute events or complaints. - Constitutional Vitals: Temp Pulse Resp BP Pulse Ox 98.0 F 69 16 117/75 94 10/08/16 11:44 10/08/16 11:44 10/08/16 11:44 10/08/16 11:44 10/08/16 11:44 General appearance: Present: cooperative, no acute distress, obese. Absent: answers questions appropriately Exam: Patient unable to provide any history due to MRDD - Head Head exam: Present: atraumatic - Eye Eye exam: Absent: scleral icterus - ENT ENT exam: Present: mucous membranes moist - Respiratory Respiratory exam: Present: decreased breath sounds (Decreased in the right base) . Absent: rales, rhonchi, wheezes, tachypnea - Cardiovascular Cardiovascular exam: Present: RRR, +S1, +S2 - GI/Abdominal GI/Abdominal exam: Present: soft. Absent: distended, firm, guarding, tenderness - Extremities Exam Extremities exam: Present: radial pulses palpable and symmetrical. Absent: cyanotic, pedal edema - Neurological Exam Neurological exam: Present: no focal deficits. Absent: facial droop Additional comments: No obvious neurological deficits, patient is unable to provide any history due to MRDD, he is able to verbalize but keeps repeating the same words over and over again, not in any distress Internal Medicine: Result - Labs CBC & Chem 7: 10/08/16 04:54 10/08/16 04:54 Labs: Short CBC 10/08/16 Range/Units 04:54 WBC 9.3 (4.3-11.1) K/mcL Hgb 8.2 L (12.9-16.9) g/dL Hct 25.9 L (37.5-50.1) % Plt Count 194 (140-400) K/mcL Neutrophils # 7.2 (1.6-8.9) K/mcL BMP 10/08/16 04:54 Sodium 135 L Potassium 4.6 H Chloride 105 Carbon Dioxide 24 BUN 25 D Creatinine 1.28 H Glucose 113 H Calcium 8.5 L - ABG Interpretation ABG results: ABG ABG pH 7.41 pH Units (7.32-7.45) 10/04/16 05:10 ABG pCO2 48 mmHg (35-45) H 10/04/16 05:10 ABG pO2 54 mmHg (85-104) L 10/04/16 05:10 ABG O2 Saturation 88 % (95-98) L 10/04/16 05:10 PT/INR, D-dimer PT 16.9 Seconds (9.4-12.1) H 10/04/16 07:15 Consult Discharge Plan - Plan Referrals: Edelmira Brennan MD [Primary Care Provider] - (DR. BRENNAN SEES THE PATIENT AT THE [facility])
--- NOTE | 2016-10-08 15:25 | Pulmonology Progress Note ---
Date of Encounter: 10/08/16 Time of Encounter: 14:45 Assessment and Plan (1) Sepsis Current Visit: No Status: Suspected Blood pressure has improved since yesterday with fluid resuscitation and holding diuresis Qualifiers: Sepsis type: sepsis due to unspecified organism Qualified Code(s): A41.9 - Sepsis, unspecified organism (2) HCAP (healthcare-associated pneumonia) Current Visit: Yes Status: Acute (3) Pleural effusion Current Visit: Yes Status: Acute Reviewed pleural fluid analysis which is exudative and chest tubes tube still draining to continue monitor. Review chest x-ray which was improvement. Will plan to remove chest tube if the fluid less than 150 mL. 10/06 overall chest tube is not draining and will check chest x-ray tomorrow and if still drainage placed and 150 male will plan to remove chest tube. Otherwise his blood pressure is better. 10/07 since there is only minimal drainage I removed one chest tube and if there is no significant drainage in next 24 hours, then remove the second chest tube. Discussed with primary team to consult cardiothoracic for evaluation of decortication since chest x-ray still not significantly improved. 10/08 cardiothoracic has seen the patient and plan to have repeat CT chest and to keep chest tube at this time. This was discussed with primary team. Subjective Principal diagnosis: Pleural effusion Interval history: There is no significant changes and no significant changes in the drainage of chest tube Objective PUL Vital signs: Last Vital Signs Temp 98.0 F 10/08/16 11:44 Pulse 69 10/08/16 11:44 Resp 16 10/08/16 11:44 BP 117/75 10/08/16 11:44 Pulse Ox 94 10/08/16 11:44 General appearance: appears uncomfortable Eyes: nonicteric Neck: supple, no lymphadenopathy Auscultation: right: diminished breath sounds (Chest tube in the right side), bilateral: wheezes Percussion: right: dull Cardiovascular: regular rate and rhythm Gastrointestinal: normoactive bowel sounds Extremities: no cyanosis non-focal exam anxious Results - Laboratory Findings CBC and BMP: 10/08/16 04:54 10/08/16 04:54 ABG ABG pH 7.41 pH Units (7.32-7.45) 10/04/16 05:10 ABG pCO2 48 mmHg (35-45) H 10/04/16 05:10 ABG pO2 54 mmHg (85-104) L 10/04/16 05:10 ABG O2 Saturation 88 % (95-98) L 10/04/16 05:10 PT/INR, D-dimer PT 16.9 Seconds (9.4-12.1) H 10/04/16 07:15 Abnormal lab findings: Abnormal lab results RBC 2.77 M/mcL (4.19-5.50) L 10/08/16 04:54 Hgb 8.2 g/dL (12.9-16.9) L 10/08/16 04:54 Hct 25.9 % (37.5-50.1) L 10/08/16 04:54 RDW 14.7 % (11.5-14.5) H 10/08/16 04:54 PT 16.9 Seconds (9.4-12.1) H 10/04/16 07:15 APTT 37.8 Seconds (26.0-36.0) H 10/02/16 12:53 ABG pCO2 48 mmHg (35-45) H 10/04/16 05:10 ABG pO2 54 mmHg (85-104) L 10/04/16 05:10 ABG HCO3 30.4 mEQ/L (21-27) H 10/04/16 05:10 ABG Total CO2 31.9 mEq/L (20-26) H 10/04/16 05:10 ABG O2 Saturation 88 % (95-98) L 10/04/16 05:10 ABG Base Excess 5.0 mEq/L (-2.0 to 3.0) H 10/04/16 05:10 Sodium 135 mEq/L (136-145) L 10/08/16 04:54 Potassium 4.6 mEq/L (3.5-4.5) H 10/08/16 04:54 Creatinine 1.28 mg/dL (0.72-1.25) H 10/08/16 04:54 Est GFR (Non-Af Amer) 56 (> 60) L 10/08/16 04:54 Glucose 113 mg/dL (70-99) H 10/08/16 04:54 POC Glucose 189 (58-89) H 10/07/16 20:17 Calcium 8.5 mg/dL (8.6-10.8) L 10/08/16 04:54 Alkaline Phosphatase 178 Units/L (38-126) H 10/04/16 07:15 Albumin 2.5 g/dL (3.5-5.0) L 10/04/16 07:15 Globulin 5.2 g/dL (2.4-3.5) H 10/04/16 07:15 Albumin/Globulin Ratio 0.5 (1.1-2.2) L 10/04/16 07:15 Ur Specific [place] 1.028 (1.010-1.025) H 10/02/16 17:00 Pleural Appearance Cloudy (Clear) A 10/04/16 09:50 Pleural RBC 0.045 M/mcL (0.000-0.002) H 10/04/16 09:50 - Microbiology Findings Microbiology Findings: Microbiology, Last 48 Hours 10/04/16 09:50 Body Fluid Culture - Final Pleural Fluid - Clinical Findings Intake & Output: Intake & Output 10/07/16 10/08/16 10/08/16 23:59 07:59 15:59 Intake Total 1120 / 1120 200 / 200 360 / 360 Output Total 1175 / 1175 900 / 900 800 / 800 Balance -55 / -55 -700 / -700 -440 / -440 Weight 104 kg Consult Discharge Plan - Plan Referrals: Edelmira Brennan MD [Primary Care Provider] - (DR. BRENNAN SEES THE PATIENT AT THE [facility])
[2016-10-08] MEDS: Ipratropium/Albuterol Neb 3 ML IH PRN (15:26)
[2016-10-08] MEDS: Aspirin 81 MG TAB.CHEW PO SCH (17:18)
[2016-10-08] MEDS: 0.9 % Sodium Chloride 1,000 ML IVC SCH ×3 (20:29→22:24)
[2016-10-09 01:29] LABS: Basophils % 0.1 %; Eosinophils # 0.1 K/mcL (0.0-0.6); Eosinophils % 1.7 %; Hematocrit 25.8 % (37.5-50.1); Hemoglobin 8.2 g/dL (12.9-16.9); Immature Granulocytes % 0.7 % (0-4); Immature Platelets 1.1 % (1.1-6.1); Lymphocytes # 1.3 K/mcL (0.6-4.6); Lymphocytes % 16.5 %; Mean Corpuscular HGB Conc 31.8 g/dL (31.6-35.5); Mean Corpuscular Hemoglobin 29.2 pg (28.0-33.3); Mean Corpuscular Volume 91.8 fL (83.0-100.0); Mean Platelet Volume 9.4 fL (9.4-12.4); Monocytes # 0.8 K/mcL (0.0-1.3); Monocytes % 10.2 %; Neutrophils # 5.7 K/mcL (1.6-8.9); Platelet Count 215 K/mcL (140-400); Red Blood Count 2.81 M/mcL (4.19-5.50); Red Cell Distribution Width 14.6 % (11.5-14.5); Segmented Neutrophils % 70.8 %
[2016-10-09 01:45] LABS: Alanine Aminotransferase 8 Units/L (0-55); Albumin/Globulin Ratio 0.3 (1.1-2.2); Alkaline Phosphatase 92 Units/L (38-126); Aspartate Amino Transferase 12 Units/L (5-34); BUN/Creatinine Ratio 18 (6-26); Blood Urea Nitrogen 21 mg/dL (8-26); Calcium 8.5 mg/dL (8.6-10.8); Carbon Dioxide 23 mEq/L (19-29); Chloride 104 mEq/L (98-109); Globulin 4.9 g/dL (2.4-3.5); Glucose 95 mg/dL (70-99); Magnesium 1.5 mg/dL (1.6-2.6); Osmolality,Calculated 281 (280-300); Potassium 4.6 mEq/L (3.5-4.5); Sodium 134 mEq/L (136-145); Total Protein 6.6 g/dL (6.0-8.3); eGFR For African Americans > 60 (> 60); eGFR For Non-African Americans > 60 (> 60)
[2016-10-09 01:57] LABS: Albumin 1.7 g/dL (3.5-5.0); Bilirubin,Total < 0.3 mg/dL (0.2-1.2)
[2016-10-09] MEDS: Insulin LISPRO 300 UNITS/3 ML VIAL SQ SCH ×4 (07:12→20:45)
[2016-10-09] MEDS ORDERED: Magnesium Sulfate 2 GM in D5% in Water 100 ML IVPB ONE (07:20)
[2016-10-09] MEDS: Piperacillin/Tazobactam 3.375 GM in D5% in Water (Mini-Bag+) 100 ML IVPB SCH ×2 (07:38→17:00)
[2016-10-09] MEDS: predniSONE 10 MG TABLET PO SCH (07:39)
[2016-10-09] MEDS: FLUoxetine 20 MG CAPSULE PO SCH (07:39)
[2016-10-09] MEDS: clonazePAM 0.5 MG TABLET PO SCH ×2 (07:39→20:40)
[2016-10-09] MEDS: Metoprolol XL (24 HR) Succ 25 MG TAB.ER.24H PO SCH (07:39)
[2016-10-09] MEDS: *HR* Heparin 5,000 UNIT/ML VIAL SQ SCH ×2 (07:39→20:40)
[2016-10-09] MEDS: Folic Acid 1 MG TABLET PO SCH (07:40)
[2016-10-09] MEDS: carBAMazepine 200 MG TABLET PO SCH ×2 (07:40→20:40)
--- NOTE | 2016-10-09 08:28 | Cardiothoracic Progress Note ---
Date of Encounter: 10/09/16 Time of Encounter: 08:25 - Assessment and plan (1) Acute and chronic respiratory failure ([id number]-[id number]-[id number]) Current Visit: Yes Status: Acute CT scan of the chest done yesterday reveals improved consolidation of the lung and improved pleural effusion. The patient is afebrile and his white blood cell count is down to 8000. At this point, I do not feel that the patient requires decortication. I would continue with the antibiotics and the chest tube could be removed in 1-2 days. Qualifiers: Respiratory failure complication: hypoxia Qualified Code(s): J96.21 - Acute and chronic respiratory failure with hypoxia - Subjective Interval history: The patient voices no complaints. Vital Signs, Last 4 Hours Temp Pulse Resp BP Pulse Ox 10/09/16 07:03 98.0 F 75 20 124/80 93 Oxgyen Flow Rate Oxygen Flow Rate (LPM) 5 Clinical Data, last 8 Hours Output, Urine Amount 700 Output, Urine Amount 325 Weight 10/07/16 10/08/16 10/09/16 23:59 23:59 23:59 Weight 103.6 kg 104 kg 106.2 kg Lungs are clear to percussion and auscultation. Heart is in a normal sinus rhythm. Chest tube drainage is minimal and there is no air leak. - Labs 10/09/16 01:11 10/09/16 01:11 Lab Results, Last 24 hours 10/09/16 10/09/16 01:11 01:11 WBC 8.1 Hgb 8.2 L Hct 25.8 L Plt Count 215 Sodium 134 L Potassium 4.6 H Chloride 104 Carbon Dioxide 23 BUN 21 Creatinine 1.15 Glucose 95 Calcium 8.5 L Magnesium 1.5 L Total Bilirubin < 0.3 AST 12 ALT 8 Alkaline Phosphatase 92 Consult Discharge Plan - Plan Referrals: Edelmira Brennan MD [Primary Care Provider] - (DR. BRENNAN SEES THE PATIENT AT THE [facility])
--- NOTE | 2016-10-09 11:50 | Pulmonology Progress Note ---
Date of Encounter: 10/09/16 Time of Encounter: 09:00 Assessment and Plan (1) Pleural effusion Current Visit: Yes Status: Acute Patient has complicated pleural effusion supported by 2 chest tubes . The first chest tube was removed was on monday, the second chest tube over last 24 hrs drained some 20 -30 cc . was consulted regarding for possible decortication . Reviewed the CT scan the loculated pleural effusion has gone down , the chest tube in place with some gas around the chest tube . Discussed with Dr. Alfonso as patient is stable there is no signs of SIRS or sepsis he will not be doing any intervention like decortication. Will keep the chest tube for another 24 hrs.. Will not give any more tPA . Will remove the chest tube tomorrow. (2) Sepsis Current Visit: No Status: Suspected Patient is hemodynamically stable , sepsis resolved . No growth in culture till date .Will continue the current antibiotics for now . Qualifiers: Sepsis type: sepsis due to unspecified organism Qualified Code(s): A41.9 - Sepsis, unspecified organism (3) HCAP (healthcare-associated pneumonia) Current Visit: No Status: Acute Getting better with broad spectrum antibiotics. Subjective Principal diagnosis: Pleural effusion Interval history: Patient is MRDD doesnt have any obvious complaints Objective PUL Vital signs: Last Vital Signs Temp 98.3 F 10/09/16 11:18 Pulse 73 10/09/16 11:18 Resp 20 10/09/16 11:18 BP 140/85 10/09/16 11:18 Pulse Ox 90 10/09/16 11:18 General appearance: alert, appears uncomfortable Eyes: nonicteric ENT: oropharynx moist Neck: supple Effort: mildly labored Auscultation: bilateral: diminished breath sounds, wheezes Cardiovascular: regular rate and rhythm Gastrointestinal: normoactive bowel sounds, soft, other (colostomy bag) Integumentary: normal non-focal exam, other (His Baseline mental status) mood appropriate Results - Laboratory Findings CBC and BMP: 10/09/16 01:11 10/09/16 01:11 ABG ABG pH 7.41 pH Units (7.32-7.45) 10/04/16 05:10 ABG pCO2 48 mmHg (35-45) H 10/04/16 05:10 ABG pO2 54 mmHg (85-104) L 10/04/16 05:10 ABG O2 Saturation 88 % (95-98) L 10/04/16 05:10 PT/INR, D-dimer PT 16.9 Seconds (9.4-12.1) H 10/04/16 07:15 Abnormal lab findings: Abnormal lab results RBC 2.81 M/mcL (4.19-5.50) L 10/09/16 01:11 Hgb 8.2 g/dL (12.9-16.9) L 10/09/16 01:11 Hct 25.8 % (37.5-50.1) L 10/09/16 01:11 RDW 14.6 % (11.5-14.5) H 10/09/16 01:11 PT 16.9 Seconds (9.4-12.1) H 10/04/16 07:15 APTT 37.8 Seconds (26.0-36.0) H 10/02/16 12:53 ABG pCO2 48 mmHg (35-45) H 10/04/16 05:10 ABG pO2 54 mmHg (85-104) L 10/04/16 05:10 ABG HCO3 30.4 mEQ/L (21-27) H 10/04/16 05:10 ABG Total CO2 31.9 mEq/L (20-26) H 10/04/16 05:10 ABG O2 Saturation 88 % (95-98) L 10/04/16 05:10 ABG Base Excess 5.0 mEq/L (-2.0 to 3.0) H 10/04/16 05:10 Sodium 134 mEq/L (136-145) L 10/09/16 01:11 Potassium 4.6 mEq/L (3.5-4.5) H 10/09/16 01:11 POC Glucose 114 (58-89) H 10/08/16 16:14 Calcium 8.5 mg/dL (8.6-10.8) L 10/09/16 01:11 Magnesium 1.5 mg/dL (1.6-2.6) L 10/09/16 01:11 Albumin 1.7 g/dL (3.5-5.0) L 10/09/16 01:11 Globulin 4.9 g/dL (2.4-3.5) H 10/09/16 01:11 Albumin/Globulin Ratio 0.3 (1.1-2.2) L 10/09/16 01:11 Ur Specific [place] 1.028 (1.010-1.025) H 10/02/16 17:00 Pleural Appearance Cloudy (Clear) A 10/04/16 09:50 Pleural RBC 0.045 M/mcL (0.000-0.002) H 10/04/16 09:50 - Microbiology Findings Microbiology Findings: Microbiology, Last 48 Hours 10/04/16 09:50 Body Fluid Culture - Final Pleural Fluid - Clinical Findings Intake & Output: Intake & Output 10/08/16 10/09/16 10/09/16 23:59 07:59 15:59 Intake Total 340 / 340 100 / 100 584 / 584 Output Total 1195 / 1195 1035 / 1035 700 / 700 Balance -855 / -855 -935 / -935 -116 / -116 Weight 106.2 kg Consult Discharge Plan - Plan Referrals: Edelmira Brennan MD [Primary Care Provider] - (DR. BRENNAN SEES THE PATIENT AT THE [facility])
--- NOTE | 2016-10-09 14:47 | Internal Med Progress Note ---
Date of Encounter: 10/09/16 Time of Encounter: 10:45 - Assessment and plan (1) Acute and chronic respiratory failure ([id number]) Current Visit: Yes Status: Acute Assessment and plan: Secondary to moderate right-sided pleural effusion and possible HCAP - present on admission - slowly improving CXR - stable small partially loculated right-sided pleural effusion and airspace disease in right lung CT chest - interval decrease in size of right-sided pleural effusion, several foci of gas, interval decrease in consolidation right lung likely represents passive atelectasis, reactive mediastinal lymphadenopathy likely Multifactorial in setting of diastolic CHF, acute on chronic respiratory failure , noncompliance with BIPAP and oxygen Exudative pleural effusion - negative culture Continue BiPAP at night, continue IV Zosyn, continue IV fluids, hold Lasix in view of EDDIE Pulmonology following patient - managing chest tube, appreciate input 1 chest tube has been removed Second chest tube has had 20-30 mL of fluid over the past 24 hours Cardiothoracic surgery consult - no decortication at this time, advised to continue chest tube drainage, appreciate input last hospitalization - blood cultures + for MSSA, was on Ancef and discharged on levaquin to complete 10 day course was also d/c on continuous oxygen and BiPAP, and has not been compliant, fdc unable to obtain BiPAP Qualifiers: Qualified Code(s): J96.21 - Acute and chronic respiratory failure with hypoxia (2) Pleural effusion Current Visit: Yes Status: Acute Assessment and plan: Status post chest tube placement - chest x-ray repeated - small loculated right- sided pleural effusion 1 chest tube removed Second chest tube has drained 20-30 mL of fluid over the past 24 hours Pulmonology managing chest tube - appreciate input (3) Pneumonia Current Visit: No Status: Acute Assessment and plan: Probable healthcare associated pneumonia - present on admission - improving Continue IV Zosyn, on DuoNeb breathing treatment Cultures - no growth Qualifiers: Qualified Code(s): J18.1 - Lobar pneumonia, unspecified organism (4) Diabetes mellitus Current Visit: No Status: Chronic Assessment and plan: Diabetes mellitus type 2, [id number], hyperglycemia Continue sliding scale insulin, hold metformin, ACHS accuchecks, Diabetic diet Qualifiers: Qualified Code(s): E11.9 - Type 2 diabetes mellitus without complications (5) Bipolar 1 disorder Current Visit: No Status: Chronic Assessment and plan: continue Tegretol, clonazepam, fluoxetine (6) EDDIE (acute kidney injury) Current Visit: No Status: Acute Assessment and plan: Probably due to Lasix use - creatinine improved and stable, now at baseline hold lisinopril, hold Lasix and avoid nephrotoxic agents (7) DVT prophylaxis Current Visit: No Status: Chronic Assessment and plan: Continue lovenox subcutaneous - Time Spent With Patient 25 - 35 minutes - Subjective Interval history: Examined this morning. Patient is awake. Not in any distress. Patient is unable to provide any history due to probable severe MRDD. He is sitting up comfortably in bed. Tolerating oral diet. No fever. Hemodynamically stable. No other acute events or complaints. Pulmonology following patient. One chest tube has been removed. Second chest tube has drained about 20-30 mL of fluid over the past [address] of the chest reveals decrease in size of right-sided pleural effusion, interval decrease in consolidation in the right lung, mediastinal lymphadenopathy is present. Cardiothoracic surgery has evaluated patient, advised to continue chest tube drainage at this time. - Constitutional Vitals: Temp Pulse Resp BP Pulse Ox 98.3 F 73 20 140/85 90 10/09/16 11:18 10/09/16 11:18 10/09/16 11:18 10/09/16 11:18 10/09/16 11:18 General appearance: Present: cooperative, no acute distress, obese. Absent: answers questions appropriately Exam: Patient unable to provide any history due to MRDD - Head Head exam: Present: atraumatic - Eye Eye exam: Absent: scleral icterus - ENT ENT exam: Present: mucous membranes moist - Respiratory Respiratory exam: Present: chest wall tenderness (Slightly decreased in right base, otherwise clear to auscultation). Absent: rales, rhonchi, wheezes, tachypnea - Cardiovascular Cardiovascular exam: Present: RRR, +S1, +S2 - GI/Abdominal GI/Abdominal exam: Present: soft. Absent: distended, firm, guarding, tenderness - Extremities Exam Extremities exam: Present: radial pulses palpable and symmetrical. Absent: cyanotic, pedal edema - Neurological Exam Neurological exam: Present: alert, oriented X3, no focal deficits. Absent: facial droop, speech deficit Internal Medicine: Result - Labs CBC & Chem 7: 10/09/16 01:11 10/09/16 01:11 Labs: Short CBC 10/09/16 Range/Units 01:11 WBC 8.1 (4.3-11.1) K/mcL Hgb 8.2 L (12.9-16.9) g/dL Hct 25.8 L (37.5-50.1) % Plt Count 215 (140-400) K/mcL Neutrophils # 5.7 (1.6-8.9) K/mcL BMP 10/09/16 01:11 Sodium 134 L Potassium 4.6 H Chloride 104 Carbon Dioxide 23 BUN 21 Creatinine 1.15 Glucose 95 Calcium 8.5 L Liver Function 10/09/16 Range/Units 01:11 Total Bilirubin < 0.3 (0.2-1.2) mg/dL AST 12 (5-34) Units/L ALT 8 (0-55) Units/L Alkaline Phosphatase 92 (38-126) Units/L Albumin 1.7 L (3.5-5.0) g/dL - ABG Interpretation ABG results: ABG ABG pH 7.41 pH Units (7.32-7.45) 10/04/16 05:10 ABG pCO2 48 mmHg (35-45) H 10/04/16 05:10 ABG pO2 54 mmHg (85-104) L 10/04/16 05:10 ABG O2 Saturation 88 % (95-98) L 10/04/16 05:10 PT/INR, D-dimer PT 16.9 Seconds (9.4-12.1) H 10/04/16 07:15 - Impressions Impressions Chest CT 10/08/16 14:50 IMPRESSION: Chest tube in place with interval decrease in size of the right-sided pleural effusion which contains several foci of gas. Interval decrease in consolidation in the right lung which likely represents passive atelectasis, though superimposed infection remains a possibility. Mediastinal lymphadenopathy likely reactive. D/ / Efrain Thompson MD / Efrain Thompson MD Interpreting Provider: Efrain Thompson MD Consult Discharge Plan - Plan Referrals: Edelmira Brennan MD [Primary Care Provider] - (DR. BRENNAN SEES THE PATIENT AT THE [facility])
[2016-10-09] MEDS: 0.9 % Sodium Chloride 1,000 ML IVC SCH ×3 (17:01→22:02)
[2016-10-09] MEDS: Ipratropium/Albuterol Neb 3 ML IH PRN (21:59)
[2016-10-10] MEDS: Piperacillin/Tazobactam 3.375 GM in D5% in Water (Mini-Bag+) 100 ML IVPB SCH ×2 (00:46→08:35)
[2016-10-10 04:27] LABS: Alanine Aminotransferase 10 Units/L (0-55); Albumin/Globulin Ratio 0.3 (1.1-2.2); Alkaline Phosphatase 90 Units/L (38-126); Aspartate Amino Transferase 12 Units/L (5-34); BUN/Creatinine Ratio 19 (6-26); Blood Urea Nitrogen 20 mg/dL (8-26); Calcium 8.1 mg/dL (8.6-10.8); Carbon Dioxide 25 mEq/L (19-29); Chloride 103 mEq/L (98-109); Globulin 4.9 g/dL (2.4-3.5); Glucose 105 mg/dL (70-99); Magnesium 1.7 mg/dL (1.6-2.6); Osmolality,Calculated 285 (280-300); Potassium 4.7 mEq/L (3.5-4.5); Sodium 136 mEq/L (136-145); Total Protein 6.6 g/dL (6.0-8.3); eGFR For African Americans > 60 (> 60); eGFR For Non-African Americans > 60 (> 60)
[2016-10-10 04:28] LABS: Albumin 1.7 g/dL (3.5-5.0); Bilirubin,Total < 0.3 mg/dL (0.2-1.2)
[2016-10-10 04:31] LABS: Basophils % 0.1 %; Eosinophils # 0.2 K/mcL (0.0-0.6); Eosinophils % 2.8 %; Hematocrit 26.3 % (37.5-50.1); Hemoglobin 8.4 g/dL (12.9-16.9); Immature Granulocytes % 0.7 % (0-4); Lymphocytes # 1.3 K/mcL (0.6-4.6); Lymphocytes % 17.2 %; Mean Corpuscular HGB Conc 31.9 g/dL (31.6-35.5); Mean Corpuscular Hemoglobin 29.4 pg (28.0-33.3); Mean Platelet Volume 9.9 fL (9.4-12.4); Monocytes # 0.8 K/mcL (0.0-1.3); Monocytes % 10.6 %; Platelet Count 195 K/mcL (140-400); Red Blood Count 2.86 M/mcL (4.19-5.50); Red Cell Distribution Width 14.6 % (11.5-14.5); Segmented Neutrophils % 68.6 %
[2016-10-10 05:20] LABS: Platelet Estimate Normal (Normal)
[2016-10-10] MEDS: Ipratropium/Albuterol Neb 3 ML IH PRN (05:38)
--- NOTE | 2016-10-10 08:33 | Cardiothoracic Progress Note ---
Date of Encounter: 10/10/16 Time of Encounter: 08:30 - Assessment and plan (1) Pleural effusion Current Visit: Yes Status: Acute The patient is clinically improving with his right chest tube in place. His white blood cell count is normal and he has no respiratory distress. The chest tube should remain in place until the drainage has ceased. The patient will not require operative intervention at this time. Cardiothoracic surgery will sign off the case. Please reconsult if further assistance is needed. The assessment and plan as outlined above was discussed with the patient and/or family members who expressed understanding and agreement. All questions were answered. - Subjective Interval history: The patient is sitting in a chair at the bedside eating breakfast. He has no complaints. Vital Signs, Last 4 Hours Temp Pulse Resp BP Pulse Ox 10/10/16 05:38 18 88 10/10/16 04:48 99.0 F 71 24 123/82 92 Oxgyen Flow Rate Oxygen Flow Rate (LPM) 5 Clinical Data, last 8 Hours Output, Urine Amount 300 Weight 10/08/16 10/09/16 10/10/16 23:59 23:59 23:59 Weight 104 kg 106.2 kg 105 kg - Physical Examination General: Conversant, No Apparent Distress Neck: No JVD, Normal carotid pulses Cardiac: Reg Rate and Rhythm, Normal S1 and S2, No Murmur Incision: No signs of infection, Dry/intact dressing Chest tubes: Minimal drainage, Other (No air leak.) Lungs: Normal Breath Sounds, No Wheeze, Rales, Rhonchi Neuro: Alert and responsive, No focal deficits noted Vascular: Normal capillary refill Musculoskeletal: No Chest Wall Tenderness Extremities: No Clubbing, No Cyanosis, No Edema - Labs 10/10/16 03:40 10/10/16 03:40 Lab Results, Last 24 hours 10/10/16 10/10/16 03:40 03:40 WBC 7.3 Hgb 8.4 L Hct 26.3 L Plt Count 195 Sodium 136 Potassium 4.7 H Chloride 103 Carbon Dioxide 25 BUN 20 Creatinine 1.07 Glucose 105 H Calcium 8.1 L Magnesium 1.7 Total Bilirubin < 0.3 AST 12 ALT 10 Alkaline Phosphatase 90 Consult Discharge Plan - Plan Referrals: Edelmira Brennan MD [Primary Care Provider] - (DR. BRENNAN SEES THE PATIENT AT THE [facility])
[2016-10-10] MEDS: *HR* Heparin 5,000 UNIT/ML VIAL SQ SCH ×2 (08:34→21:15)
[2016-10-10] MEDS: Metoprolol XL (24 HR) Succ 25 MG TAB.ER.24H PO SCH (08:34)
[2016-10-10] MEDS: FLUoxetine 20 MG CAPSULE PO SCH (08:35)
[2016-10-10] MEDS: Folic Acid 1 MG TABLET PO SCH (08:35)
[2016-10-10] MEDS: carBAMazepine 200 MG TABLET PO SCH ×2 (08:35→21:16)
[2016-10-10] MEDS: predniSONE 10 MG TABLET PO SCH (08:35)
[2016-10-10] MEDS: clonazePAM 0.5 MG TABLET PO SCH ×2 (08:35→21:15)
[2016-10-10] MEDS: Insulin LISPRO 300 UNITS/3 ML VIAL SQ SCH ×4 (08:36→21:12)
[2016-10-10] MEDS: Ipratropium/Albuterol Neb 3 ML IH SCH ×3 (11:20→20:31)
--- NOTE | 2016-10-10 11:38 | Pulmonology Progress Note ---
Date of Encounter: 10/10/16 Time of Encounter: 11:34 Assessment and Plan (1) HCAP (healthcare-associated pneumonia) Current Visit: Yes Status: Acute 71-year-old with a complicated parapneumonic effusion with concern over empyema formation. He has had 2 small bore chest tubes placed for loculated effusion drainage is now minimal with one chest tube already being removed Plan today is to repeat chest CT of the chest today to see if the complicaed effusion drained adequately. Likely can DC chest tube later today or tomorrow based upon imaging results Continue antimicrobials (2) Pleural effusion Current Visit: Yes Status: Acute Subjective Principal diagnosis: Pleural effusion Interval history: No clinical change overnight remains afebrile. Chest tube put out less than 20 mL Objective PUL Vital signs: Last Vital Signs Temp 98.7 F 10/10/16 11:23 Pulse 68 10/10/16 11:23 Resp 20 10/10/16 11:23 BP 123/81 10/10/16 11:23 Pulse Ox 94 10/10/16 11:23 General appearance: no acute distress Auscultation: right: diminished breath sounds, other (Chest tube in satisfactory position dressing is clean dry and intact) Cardiovascular: regular rate and rhythm mood appropriate Results - Laboratory Findings CBC and BMP: 10/10/16 03:40 10/10/16 03:40 ABG ABG pH 7.41 pH Units (7.32-7.45) 10/04/16 05:10 ABG pCO2 48 mmHg (35-45) H 10/04/16 05:10 ABG pO2 54 mmHg (85-104) L 10/04/16 05:10 ABG O2 Saturation 88 % (95-98) L 10/04/16 05:10 PT/INR, D-dimer PT 16.9 Seconds (9.4-12.1) H 10/04/16 07:15 Abnormal lab findings: Abnormal lab results RBC 2.86 M/mcL (4.19-5.50) L 10/10/16 03:40 Hgb 8.4 g/dL (12.9-16.9) L 10/10/16 03:40 Hct 26.3 % (37.5-50.1) L 10/10/16 03:40 RDW 14.6 % (11.5-14.5) H 10/10/16 03:40 PT 16.9 Seconds (9.4-12.1) H 10/04/16 07:15 APTT 37.8 Seconds (26.0-36.0) H 10/02/16 12:53 ABG pCO2 48 mmHg (35-45) H 10/04/16 05:10 ABG pO2 54 mmHg (85-104) L 10/04/16 05:10 ABG HCO3 30.4 mEQ/L (21-27) H 10/04/16 05:10 ABG Total CO2 31.9 mEq/L (20-26) H 10/04/16 05:10 ABG O2 Saturation 88 % (95-98) L 10/04/16 05:10 ABG Base Excess 5.0 mEq/L (-2.0 to 3.0) H 10/04/16 05:10 Potassium 4.7 mEq/L (3.5-4.5) H 10/10/16 03:40 Glucose 105 mg/dL (70-99) H 10/10/16 03:40 POC Glucose 142 (58-89) H 10/09/16 20:44 Calcium 8.1 mg/dL (8.6-10.8) L 10/10/16 03:40 Albumin 1.7 g/dL (3.5-5.0) L 10/10/16 03:40 Globulin 4.9 g/dL (2.4-3.5) H 10/10/16 03:40 Albumin/Globulin Ratio 0.3 (1.1-2.2) L 10/10/16 03:40 Ur Specific [place] 1.028 (1.010-1.025) H 10/02/16 17:00 Pleural Appearance Cloudy (Clear) A 10/04/16 09:50 Pleural RBC 0.045 M/mcL (0.000-0.002) H 10/04/16 09:50 - Clinical Findings Intake & Output: Intake & Output 10/09/16 10/10/16 10/10/16 23:59 07:59 15:59 Intake Total 340 / 340 1170 / 1170 480 / 480 Output Total 800 / 800 300 / 300 600 / 600 Balance -460 / -460 870 / 870 -120 / -120 Weight 105 kg Consult Discharge Plan - Plan Referrals: Edelmira Brennan MD [Primary Care Provider] - (DR. BRENNAN SEES THE PATIENT [facility])
[2016-10-10] MEDS: Aspirin 81 MG TAB.CHEW PO SCH (15:59)
--- NOTE | 2016-10-10 16:05 | Internal Med Progress Note ---
Date of Encounter: 10/10/16 Time of Encounter: 10:15 - Assessment and plan (1) Acute and chronic respiratory failure ([id number]) Current Visit: Yes Status: Acute Assessment and plan: Secondary to moderate right-sided pleural effusion and possible HCAP - present on admission - slowly improving CXR - stable small partially loculated right-sided pleural effusion and airspace disease in right lung CT chest - interval decrease in size of right-sided pleural effusion, several foci of gas, interval decrease in consolidation right lung likely represents passive atelectasis, reactive mediastinal lymphadenopathy likely Multifactorial in setting of diastolic CHF, acute on chronic respiratory failure , noncompliance with BIPAP and oxygen Exudative pleural effusion - negative culture Continue BiPAP at night, continue IV Zosyn, continue IV fluids, hold Lasix in view of EDDIE Pulmonology following patient - managing chest tube, appreciate input 1 chest tube has been removed and the second one will be removed today Cardiothoracic surgery consult - no decortication at this time, advised to continue chest tube drainage, appreciate input last hospitalization - blood cultures + for MSSA, was on Ancef and discharged on levaquin to complete 10 day course was also d/c on continuous oxygen and BiPAP, and has not been compliant, detention unable to obtain BiPAP Qualifiers: Respiratory failure complication: hypoxia Qualified Code(s): J96.21 - Acute and chronic respiratory failure with hypoxia (2) Pleural effusion Current Visit: Yes Status: Acute Assessment and plan: Status post chest tube placement - chest x-ray repeated - right-sided complicated parapneumonic pleural effusion Initially had 2 small bore chest tubes, one is removed and the second one will be removed today Pulmonology managing chest tube - appreciate input (3) Pneumonia Current Visit: No Status: Acute Assessment and plan: Probable healthcare associated pneumonia - present on admission - improving Continue Augmentin for 3 weeks, on DuoNeb breathing treatment Cultures - no growth Qualifiers: Pneumonia type: due to unspecified organism Laterality: right Lung location: lower lobe of lung Qualified Code(s): J18.1 - Lobar pneumonia, unspecified organism (4) Diabetes mellitus Current Visit: No Status: Chronic Assessment and plan: Diabetes mellitus type 2, fnd-bnzshpu-ggvqtdehg, hyperglycemia Continue sliding scale insulin, hold metformin, ACHS accuchecks, Diabetic diet Qualifiers: Diabetes mellitus type: type 2 Diabetes mellitus complication status: without complication Diabetes mellitus long term care phlebotomist insulin use: without long term care phlebotomist use Qualified Code(s): E11.9 - Type 2 diabetes mellitus without complications (5) Bipolar 1 disorder Current Visit: No Status: Chronic Assessment and plan: continue Tegretol, clonazepam, fluoxetine (6) EDDIE (acute kidney injury) Current Visit: No Status: Acute Assessment and plan: Probably due to Lasix use - creatinine improved and stable, now at baseline hold lisinopril, hold Lasix and avoid nephrotoxic agents (7) DVT prophylaxis Current Visit: No Status: Chronic Assessment and plan: Continue lovenox subcutaneous - Time Spent With Patient 25 - 35 minutes - Subjective Interval history: Examined this morning. Patient is awake. Not in any distress. Patient is unable to provide any history due to probable severe MRDD. He is sitting up comfortably in bed. Tolerating oral diet. No fever. Hemodynamically stable. No other acute events or complaints. Pulmonology following patient. One chest tube has been removed. Second chest tube to be removed today. CT of the chest reveals decrease in size of right-sided pleural effusion, interval decrease in consolidation in the right lung, mediastinal lymphadenopathy is present. Cardiothoracic surgery has evaluated patient, advised to continue chest tube drainage at this time. - Constitutional Vitals: Temp Pulse Resp BP Pulse Ox 98.7 F 64 20 123/81 94 10/10/16 11:23 10/10/16 12:17 10/10/16 11:23 10/10/16 11:23 10/10/16 11:23 General appearance: Present: cooperative, no acute distress, obese. Absent: answers questions appropriately Exam: Patient unable to provide any history due to MRDD - Head Head exam: Present: atraumatic - Eye Eye exam: Absent: scleral icterus - ENT ENT exam: Present: mucous membranes moist - Respiratory Respiratory exam: Present: decreased breath sounds (Slightly decreased right base, otherwise clear to auscultation). Absent: rales, rhonchi, wheezes, tachypnea - Cardiovascular Cardiovascular exam: Present: RRR, +S1, +S2 - GI/Abdominal GI/Abdominal exam: Present: soft. Absent: distended, firm, guarding, tenderness - Extremities Exam Extremities exam: Present: radial pulses palpable and symmetrical. Absent: cyanotic, pedal edema - Neurological Exam Neurological exam: Present: no focal deficits. Absent: facial droop Additional comments: No obvious neurological deficits, patient is unable to provide any history due to MRDD, he is able to verbalize but keeps repeating the same words over and over again, not in any distress Internal Medicine: Result - Labs CBC & Chem 7: 10/10/16 03:40 10/10/16 03:40 Labs: Short CBC 10/10/16 Range/Units 03:40 WBC 7.3 (4.3-11.1) K/mcL Hgb 8.4 L (12.9-16.9) g/dL Hct 26.3 L (37.5-50.1) % Plt Count 195 (140-400) K/mcL Neutrophils # 5.0 (1.6-8.9) K/mcL BMP 10/10/16 03:40 Sodium 136 Potassium 4.7 H Chloride 103 Carbon Dioxide 25 BUN 20 Creatinine 1.07 Glucose 105 H Calcium 8.1 L Liver Function 10/10/16 Range/Units 03:40 Total Bilirubin < 0.3 (0.2-1.2) mg/dL AST 12 (5-34) Units/L ALT 10 (0-55) Units/L Alkaline Phosphatase 90 (38-126) Units/L Albumin 1.7 L (3.5-5.0) g/dL - ABG Interpretation ABG results: ABG ABG pH 7.41 pH Units (7.32-7.45) 10/04/16 05:10 ABG pCO2 48 mmHg (35-45) H 10/04/16 05:10 ABG pO2 54 mmHg (85-104) L 10/04/16 05:10 ABG O2 Saturation 88 % (95-98) L 10/04/16 05:10 PT/INR, D-dimer PT 16.9 Seconds (9.4-12.1) H 10/04/16 07:15 - Impressions Impressions Chest CT 10/10/16 14:30 IMPRESSION: 1. No significant change in the appearance of the loculated right pleural effusion and right lung consolidative changes. The chest tube appears to drain a portion of the effusion; however, the medial aspect is not adequately drained. 2. Prominent main pulmonary artery measuring 3.8 cm, indicating chronic pulmonary arterial hypertension. 3. No evidence of significant adenopathy. D/ / 10/10/2016 15:41:56 Donna Zambrano MD / earnold Interpreting Provider: Donna Zambrano MD Consult Discharge Plan - Plan Referrals: Edelmira Brennan MD [Primary Care Provider] - (DR. BRENNAN SEES THE PATIENT AT THE [facility])
[2016-10-11] MEDS: Ipratropium/Albuterol Neb 3 ML IH SCH ×6 (00:51→20:57)
[2016-10-11 06:45] LABS: Hematocrit 27.7 % (37.5-50.1); Hemoglobin 8.6 g/dL (12.9-16.9); Mean Corpuscular Hemoglobin 28.8 pg (28.0-33.3); Mean Corpuscular Volume 92.6 fL (83.0-100.0); Mean Platelet Volume 9.7 fL (9.4-12.4); Platelet Count 198 K/mcL (140-400); Red Blood Count 2.99 M/mcL (4.19-5.50); Red Cell Distribution Width 14.9 % (11.5-14.5)
[2016-10-11 06:58] LABS: Alanine Aminotransferase 11 Units/L (0-55); Albumin/Globulin Ratio 0.3 (1.1-2.2); Alkaline Phosphatase 98 Units/L (38-126); Aspartate Amino Transferase 12 Units/L (5-34); BUN/Creatinine Ratio 19 (6-26); Blood Urea Nitrogen 17 mg/dL (8-26); Calcium 8.5 mg/dL (8.6-10.8); Carbon Dioxide 28 mEq/L (19-29); Chloride 101 mEq/L (98-109); Glucose 124 mg/dL (70-99); Magnesium 1.5 mg/dL (1.6-2.6); Osmolality,Calculated 285 (280-300); Potassium 4.5 mEq/L (3.5-4.5); Sodium 136 mEq/L (136-145); Total Protein 6.7 g/dL (6.0-8.3); eGFR For African Americans > 60 (> 60); eGFR For Non-African Americans > 60 (> 60)
[2016-10-11 07:21] LABS: Albumin 1.7 g/dL (3.5-5.0); Bilirubin,Total < 0.3 mg/dL (0.2-1.2)
[2016-10-11] MEDS: Insulin LISPRO 300 UNITS/3 ML VIAL SQ SCH ×4 (07:21→20:36)
[2016-10-11] MEDS: carBAMazepine 200 MG TABLET PO SCH ×2 (07:50→20:35)
[2016-10-11] MEDS: predniSONE 10 MG TABLET PO SCH (07:50)
[2016-10-11] MEDS: Folic Acid 1 MG TABLET PO SCH (07:50)
[2016-10-11] MEDS: Metoprolol XL (24 HR) Succ 25 MG TAB.ER.24H PO SCH (07:50)
[2016-10-11] MEDS: *HR* Heparin 5,000 UNIT/ML VIAL SQ SCH ×2 (07:51→20:36)
[2016-10-11] MEDS: FLUoxetine 20 MG CAPSULE PO SCH (07:51)
[2016-10-11] MEDS: clonazePAM 0.5 MG TABLET PO SCH ×2 (07:51→20:35)
--- NOTE | 2016-10-11 08:23 | Pulmonology Progress Note ---
Date of Encounter: 10/11/16 Time of Encounter: 08:19 Assessment and Plan (1) HCAP (healthcare-associated pneumonia) Current Visit: Yes Status: Acute Impression: Complicated Paranpnuemonic Effusion s/p small bore thoracostomy drainage. Based upon repeat CT imaging this is been partially successful although clinically patient is making progress and the fact that his white count has decreased to normal oxygen requirement has gone down substantially and overall clinically appears to be improving. He has been evaluated by Cardiothoracic Surgery who does not feel that decortication is necessary at this time. That leaves us with a prolonged course of antimicrobials for tratment of this condition. Today I removed a small bore chest tube at bedside the area was cleaned with chlorhexidine after dressing was removed the area around the insertion site of the chest tube was covered with petroleum gauze chest tube was cut as pressure was applied to the proximal end of the 2 it was removed without difficulty dressed with Tegaderm patient tolerated well he was unable to consistently apply negative intrathoracic pressure given cognitive impairment. Plan: Would transition to oral Augmentin 875 mg twice a day for to complete 3 week course. This can be combined with probiotics or yogurt as deemed appropriate by the primary medical service Repeat CT imaging in 3-4 weeks Outpatient pulmonary follow-up Pulmonary we will sign off please call with any questions thank you for this consult (2) Pleural effusion Current Visit: Yes Status: Acute Subjective Principal diagnosis: Pleural effusion Interval history: No clinical change overnight remains afebrile. Chest tube with no significant output. He is on 2L supplemental O2 delivered via nasal cannula which at times can be weaned off his been out of bed to chair. Objective PUL Vital signs: Last Vital Signs Temp 98.4 F 10/11/16 06:59 Pulse 86 10/11/16 06:59 Resp 18 10/11/16 07:56 BP 127/98 10/11/16 06:59 Pulse Ox 94 10/11/16 07:56 General appearance: no acute distress Auscultation: right: diminished breath sounds Cardiovascular: regular rate and rhythm Extremities: edema Results - Laboratory Findings CBC and BMP: 10/11/16 06:12 10/11/16 06:12 ABG ABG pH 7.41 pH Units (7.32-7.45) 10/04/16 05:10 ABG pCO2 48 mmHg (35-45) H 10/04/16 05:10 ABG pO2 54 mmHg (85-104) L 10/04/16 05:10 ABG O2 Saturation 88 % (95-98) L 10/04/16 05:10 PT/INR, D-dimer PT 16.9 Seconds (9.4-12.1) H 10/04/16 07:15 Abnormal lab findings: Abnormal lab results RBC 2.99 M/mcL (4.19-5.50) L 10/11/16 06:12 Hgb 8.6 g/dL (12.9-16.9) L 10/11/16 06:12 Hct 27.7 % (37.5-50.1) L 10/11/16 06:12 MCHC 31.0 g/dL (31.6-35.5) L 10/11/16 06:12 RDW 14.9 % (11.5-14.5) H 10/11/16 06:12 PT 16.9 Seconds (9.4-12.1) H 10/04/16 07:15 APTT 37.8 Seconds (26.0-36.0) H 10/02/16 12:53 ABG pCO2 48 mmHg (35-45) H 10/04/16 05:10 ABG pO2 54 mmHg (85-104) L 10/04/16 05:10 ABG HCO3 30.4 mEQ/L (21-27) H 10/04/16 05:10 ABG Total CO2 31.9 mEq/L (20-26) H 10/04/16 05:10 ABG O2 Saturation 88 % (95-98) L 10/04/16 05:10 ABG Base Excess 5.0 mEq/L (-2.0 to 3.0) H 10/04/16 05:10 Glucose 124 mg/dL (70-99) H 10/11/16 06:12 POC Glucose 137 (58-89) H 10/10/16 20:34 Calcium 8.5 mg/dL (8.6-10.8) L 10/11/16 06:12 Magnesium 1.5 mg/dL (1.6-2.6) L 10/11/16 06:12 Albumin 1.7 g/dL (3.5-5.0) L 10/11/16 06:12 Globulin 5.0 g/dL (2.4-3.5) H 10/11/16 06:12 Albumin/Globulin Ratio 0.3 (1.1-2.2) L 10/11/16 06:12 Ur Specific [place] 1.028 (1.010-1.025) H 10/02/16 17:00 Pleural Appearance Cloudy (Clear) A 10/04/16 09:50 Pleural RBC 0.045 M/mcL (0.000-0.002) H 10/04/16 09:50 - Diagnostic Findings CT scan - chest: report reviewed (Persistent right loculated effusion), image reviewed - Clinical Findings Intake & Output: Intake & Output 10/10/16 10/11/16 10/11/16 23:59 07:59 15:59 Intake Total 240 / 240 480 / 480 Output Total 1525 / 1525 1225 / 1225 Balance -1285 / -1285 -745 / -745 Weight 105 kg Pulmonary Procedures - Arterial Line Time out performed: No Consult Discharge Plan - Plan Referrals: Edelmira Brennan MD [Primary Care Provider] - (DR. BRENNAN SEES THE PATIENT AT THE [facility])
[2016-10-11 09:02] LABS: Anisocytosis 1+ (Not Present); Eosinophils # 0.2 K/mcL (0.0-0.6); Lymphocytes # 0.9 K/mcL (0.6-4.6); Monocytes # 0.6 K/mcL (0.0-1.3); Neutrophils # 5.9 K/mcL (1.6-8.9); Platelet Estimate Normal (Normal)
[2016-10-11] MEDS ORDERED: Magnesium Sulfate 2 GM in D5% in Water 100 ML IVPB ONE (12:18)
--- NOTE | 2016-10-11 12:18 | Internal Med Progress Note ---
Date of Encounter: 10/11/16 Time of Encounter: 12:16 - Assessment and plan (1) Acute and chronic respiratory failure ([id number]) Current Visit: Yes Status: Acute Assessment and plan: Continues to improve, however noted to have significant wheezing today. Due to underlying pleural effusion. Continue supplemental oxygen via nasal cannula. Start IV steroids, hold prednisone and continue scheduled bronchodilators. Qualifiers: Respiratory failure complication: hypoxia Qualified Code(s): J96.21 - Acute and chronic respiratory failure with hypoxia (2) Pleural effusion Current Visit: Yes Status: Acute Assessment and plan: Noted to have right-sided complicated parapneumonic pleural effusion. Pulmonology follow-up noted, removed thoracostomy tube today. Pleural fluid analysis shows exudative fluid with negative Gram stain and culture. Blood cultures remain negative. Recommend a 3 week course of oral Augmentin and repeat CT chest in 3-4 weeks. Plan of care discussed with patient's legal guardian, his brother David. (3) CHF (congestive heart failure) Current Visit: Yes Status: Chronic Qualifiers: Congestive heart failure type: diastolic Congestive heart failure chronicity: chronic Qualified Code(s): I50.32 - Chronic diastolic (congestive ) heart failure (4) Diabetes mellitus Current Visit: Yes Status: Chronic Assessment and plan: Continue Accu-Chek blood glucose monitoring with sliding scale insulin as needed. At risk for steroid-induced hyperglycemia. Diabetic diet. Qualifiers: Diabetes mellitus type: type 2 Diabetes mellitus complication status: without complication Diabetes mellitus intermediate insulin use: without intermediate use Qualified Code(s): E11.9 - Type 2 diabetes mellitus without complications (5) Bipolar 1 disorder Current Visit: Yes Status: Chronic (6) COPD (chronic obstructive pulmonary disease) Current Visit: Yes Status: Acute Qualifiers: COPD type: emphysema Emphysema type: unspecified Qualified Code(s): J43.9 - Emphysema, unspecified - Subjective Interval history: Cannot provide history or answer questions due to mental retardation at baseline ; - Constitutional Vitals: Temp Pulse Resp BP Pulse Ox 97.9 F 63 18 135/96 95 10/11/16 11:37 10/11/16 11:55 10/11/16 11:42 10/11/16 11:55 10/11/16 11:42 General appearance: Present: A&O X 1. Absent: answers questions appropriately - Respiratory Respiratory exam: Present: CTAB, wheezes (B/L wheezing and diffuse rhonchi). Absent: accessory muscle use, rales, rhonchi - Cardiovascular Cardiovascular exam: Present: RRR, +S1, +S2. Absent: diastolic murmur, gallop, rubs, systolic murmur - GI/Abdominal GI/Abdominal exam: Present: normal bowel sounds, soft, no peritoneal signs. Absent: distended, tenderness - Extremities Exam Extremities exam: Present: full ROM, warm, radial pulses palpable and symmetrical. Absent: calf tenderness, cyanotic, pedal edema Internal Medicine: Result - Labs CBC & Chem 7: 10/11/16 06:12 10/12/16 08:36 Labs: Short CBC 10/11/16 Range/Units 06:12 WBC 7.6 (4.3-11.1) K/mcL Hgb 8.6 L (12.9-16.9) g/dL Hct 27.7 L (37.5-50.1) % Plt Count 198 (140-400) K/mcL Neutrophils # 5.9 (1.6-8.9) K/mcL BMP 10/11/16 06:12 Sodium 136 Potassium 4.5 Chloride 101 Carbon Dioxide 28 BUN 17 Creatinine 0.89 Glucose 124 H Calcium 8.5 L Liver Function 10/11/16 Range/Units 06:12 Total Bilirubin < 0.3 (0.2-1.2) mg/dL AST 12 (5-34) Units/L ALT 11 (0-55) Units/L Alkaline Phosphatase 98 (38-126) Units/L Albumin 1.7 L (3.5-5.0) g/dL - ABG Interpretation ABG results: ABG ABG pH 7.41 pH Units (7.32-7.45) 10/04/16 05:10 ABG pCO2 48 mmHg (35-45) H 10/04/16 05:10 ABG pO2 54 mmHg (85-104) L 10/04/16 05:10 ABG O2 Saturation 88 % (95-98) L 10/04/16 05:10 PT/INR, D-dimer PT 16.9 Seconds (9.4-12.1) H 10/04/16 07:15 - Impressions Impressions Chest CT 10/10/16 14:30 IMPRESSION: 1. No significant change in the appearance of the loculated right pleural effusion and right lung consolidative changes. The chest tube appears to drain a portion of the effusion; however, the medial aspect is not adequately drained. 2. Prominent main pulmonary artery measuring 3.8 cm, indicating chronic pulmonary arterial hypertension. 3. No evidence of significant adenopathy. D/ / 10/10/2016 15:41:56 Donna Zambrano MD / earnold Interpreting Provider: Donna Zambrano MD Consult Discharge Plan - Plan Referrals: Edelmira Brennan MD [Primary Care Provider] - (DR. BRENNAN SEES THE PATIENT AT THE [facility])
[2016-10-11] MEDS: MethylPREDNISolone 40 MG/ML VIAL IVP SCH (16:33)
[2016-10-12] MEDS: Ipratropium/Albuterol Neb 3 ML IH SCH ×7 (00:03→23:22)
[2016-10-12] MEDS: MethylPREDNISolone 40 MG/ML VIAL IVP SCH ×4 (00:23→23:43)
[2016-10-12] MEDS: Metoprolol XL (24 HR) Succ 25 MG TAB.ER.24H PO SCH (08:01)
[2016-10-12] MEDS: clonazePAM 0.5 MG TABLET PO SCH ×2 (08:01→20:22)
[2016-10-12] MEDS: carBAMazepine 200 MG TABLET PO SCH ×2 (08:02→20:23)
[2016-10-12] MEDS: *HR* Heparin 5,000 UNIT/ML VIAL SQ SCH ×2 (08:02→20:19)
[2016-10-12] MEDS: FLUoxetine 20 MG CAPSULE PO SCH (08:02)
[2016-10-12] MEDS: Insulin LISPRO 300 UNITS/3 ML VIAL SQ SCH ×4 (08:03→21:05)
[2016-10-12] MEDS: Folic Acid 1 MG TABLET PO SCH (08:03)
[2016-10-12 08:55] LABS: BUN/Creatinine Ratio 18 (6-26); Blood Urea Nitrogen 15 mg/dL (8-26); Calcium 8.7 mg/dL (8.6-10.8); Carbon Dioxide 28 mEq/L (19-29); Chloride 100 mEq/L (98-109); Glucose 99 mg/dL (70-99); Magnesium 1.8 mg/dL (1.6-2.6); Osmolality,Calculated 283 (280-300); Potassium 4.9 mEq/L (3.5-4.5); Sodium 136 mEq/L (136-145); eGFR For African Americans > 60 (> 60); eGFR For Non-African Americans > 60 (> 60)
--- NOTE | 2016-10-12 11:57 | Internal Med Progress Note ---
Date of Encounter: 10/12/16 Time of Encounter: 11:56 - Assessment and plan (1) Acute and chronic respiratory failure ([id number]) Current Visit: Yes Status: Acute Assessment and plan: Continues to have significant wheezing. Continue supplemental oxygen via nasal cannula. Will increase dose of IV steroids and continue scheduled bronchodilators. Will d/w Pulmonology if no improvement as patient has been on steroids for 10days; Qualifiers: Respiratory failure complication: hypoxia Qualified Code(s): J96.21 - Acute and chronic respiratory failure with hypoxia (2) Pleural effusion Current Visit: Yes Status: Acute Assessment and plan: Noted to have right-sided complicated parapneumonic pleural effusion. Pulmonology removed thoracostomy tube on 10/11/16. Pleural fluid analysis shows exudative fluid with negative Gram stain and culture. Blood cultures remain negative. Recommend a 3 week course of oral Augmentin and repeat CT chest in 3-4 weeks. (3) CHF (congestive heart failure) Current Visit: Yes Status: Chronic Qualifiers: Congestive heart failure type: diastolic Congestive heart failure chronicity: chronic Qualified Code(s): I50.32 - Chronic diastolic (congestive ) heart failure (4) Diabetes mellitus Current Visit: Yes Status: Chronic Assessment and plan: Continue Accu-Chek blood glucose monitoring with sliding scale insulin as needed. At risk for steroid-induced hyperglycemia. Diabetic diet. Qualifiers: Diabetes mellitus type: type 2 Diabetes mellitus complication status: without complication Diabetes mellitus buttermaker helper insulin use: without prison use Qualified Code(s): E11.9 - Type 2 diabetes mellitus without complications (5) Bipolar 1 disorder Current Visit: Yes Status: Chronic (6) COPD (chronic obstructive pulmonary disease) Current Visit: Yes Status: Acute Qualifiers: COPD type: emphysema Emphysema type: unspecified Qualified Code(s): J43.9 - Emphysema, unspecified - Subjective Interval history: Cannot provide history or answer questions due to mental retardation at baseline ; - Constitutional Vitals: Temp Pulse Resp BP Pulse Ox 97.7 F 69 18 128/78 91 10/12/16 11:00 10/12/16 11:00 10/12/16 11:50 10/12/16 11:00 10/12/16 11:50 General appearance: Present: A&O X 1. Absent: answers questions appropriately - Respiratory Respiratory exam: Present: CTAB, wheezes (B/L diffuse wheezing). Absent: accessory muscle use, rales, rhonchi - Cardiovascular Cardiovascular exam: Present: RRR, +S1, +S2. Absent: diastolic murmur, gallop, rubs, systolic murmur - GI/Abdominal GI/Abdominal exam: Present: normal bowel sounds, soft, no peritoneal signs. Absent: distended, tenderness Internal Medicine: Result - Labs CBC & Chem 7: 10/11/16 06:12 10/12/16 08:36 Labs: BMP 10/12/16 08:36 Sodium 136 Potassium 4.9 H Chloride 100 Carbon Dioxide 28 BUN 15 Creatinine 0.83 Glucose 99 Calcium 8.7 - ABG Interpretation ABG results: ABG ABG pH 7.41 pH Units (7.32-7.45) 10/04/16 05:10 ABG pCO2 48 mmHg (35-45) H 10/04/16 05:10 ABG pO2 54 mmHg (85-104) L 10/04/16 05:10 ABG O2 Saturation 88 % (95-98) L 10/04/16 05:10 PT/INR, D-dimer PT 16.9 Seconds (9.4-12.1) H 10/04/16 07:15 Consult Discharge Plan - Plan Referrals: Edelmira Brennan MD [Primary Care Provider] - (DR. BRENNAN SEES THE PATIENT AT THE [facility])
[2016-10-12] MEDS: Aspirin 81 MG TAB.CHEW PO SCH (15:52)
[2016-10-13] MEDS: Ipratropium/Albuterol Neb 3 ML IH SCH ×4 (04:07→16:16)
[2016-10-13] MEDS: FLUoxetine 20 MG CAPSULE PO SCH (09:58)
[2016-10-13] MEDS: carBAMazepine 200 MG TABLET PO SCH (09:59)
[2016-10-13] MEDS: clonazePAM 0.5 MG TABLET PO SCH (09:59)
[2016-10-13] MEDS: Folic Acid 1 MG TABLET PO SCH (09:59)
[2016-10-13] MEDS: Metoprolol XL (24 HR) Succ 25 MG TAB.ER.24H PO SCH (10:00)
[2016-10-13] MEDS: *HR* Heparin 5,000 UNIT/ML VIAL SQ SCH (10:03)
[2016-10-13] MEDS: MethylPREDNISolone 40 MG/ML VIAL IVP SCH (10:08)
[2016-10-13] MEDS: Insulin LISPRO 300 UNITS/3 ML VIAL SQ SCH ×2 (10:14→12:49)
[2016-10-13 11:07] VITALS: BP 119/68
--- NOTE | 2016-10-13 12:36 | Discharge Summary ---
Date of Encounter: 10/13/16 Time of Encounter: 12:34 - Discharge Diagnosis (1) Acute and chronic respiratory failure ([id number]) Priority: Primary Status: Acute Qualifiers: Respiratory failure complication: hypoxia Qualified Code(s): J96.21 - Acute and chronic respiratory failure with hypoxia (2) Pleural effusion Priority: Primary Status: Acute (3) CHF (congestive heart failure) Priority: Secondary Status: Chronic Qualifiers: Congestive heart failure type: diastolic Congestive heart failure chronicity: chronic Qualified Code(s): I50.32 - Chronic diastolic (congestive ) heart failure (4) Bipolar 1 disorder Priority: Secondary Status: Chronic (5) COPD (chronic obstructive pulmonary disease) Priority: Secondary Status: Chronic Qualifiers: COPD type: emphysema Emphysema type: unspecified Qualified Code(s): J43.9 - Emphysema, unspecified - Discharge Medications Prescriptions: Amoxicillin/Clavulanate [Augmentin] 875 mg PO BIDWM #20 tab Ipratropium/Albuterol Neb [Duoneb] 3 ml IH Q6H PRN 30 Days PRN Reason: Shortness Of Breath/Wheezing predniSONE [PredniSONE] 60 mg PO DAILY 18 Days Home Medications: Acetaminophen [Tylenol] 650 mg PO Q4HR PRN 04/03/15 [History] Alendronate Sodium [Fosamax] 70 mg PO TH 04/03/15 [History] Atorvastatin [Lipitor] 40 mg PO HS 04/03/15 [History] Cholecalciferol (Vitamin D3) [Vitamin D3] 1,000 unit PO DAILY 04/03/15 [History] Docusate Sodium [Colace] 200 mg PO BID 04/03/15 [History] FLUoxetine HCl [Prozac] 40 mg PO DAILY 04/03/15 [History] Folic Acid 1 mg PO DAILY 04/03/15 [History] Gemfibrozil [Lopid] 600 mg PO BID 04/03/15 [History] Lisinopril [Zestril] 10 mg PO DAILY 04/03/15 [History] Magnesium Hydroxide [Milk of Magnesia] 30 ml PO DAILY PRN 04/03/15 [History] Metformin HCl [Glucophage] 1,000 mg PO BID 04/03/15 [History] Polyethylene Glycol 3350 [MiraLAX bowel prep] 15 gm PO BID PRN #0 04/03/15 [ History] carBAMazepine [Tegretol] 400 mg PO HS 04/03/15 [History] clonazePAM [Klonopin] 0.5 mg PO BID 04/03/15 [History] Albuterol Neb [Proventil Neb] 2.5 mg IH Q4H PRN 09/22/15 [History] Mag Hydrox/Al Hydrox/Simeth [Adv Antacid-[place] Liquid] 30 ml PO Q4H PRN #0 [History] [place]-3 Fatty Acids/Fish Oil [[place]-3 Fish Oil 1,000 mg Sfgl] 1,000 mg PO BID [History] carBAMazepine [Tegretol] 200 mg PO QAM 09/22/15 [History] Cariprazine HCl [Vraylar] 1.5 mg PO HS 09/13/16 [History] Aspirin 81 mg PO Q48H 09/15/16 [History] Loperamide [Imodium] 4 mg PO AD PRN 09/15/16 [History] Metoprolol XL (24 HR) Succ [Toprol Xl] 12.5 mg PO DAILY 09/15/16 [History] Furosemide [Lasix] 40 mg PO DAILY #90 tab 09/30/16 [Rx] Amoxicillin/Clavulanate [Augmentin] 875 mg PO BIDWM #20 tab 10/13/16 [Rx] Ipratropium/Albuterol Neb [Duoneb] 3 ml IH Q6H PRN 30 Days 10/13/16 [Rx] predniSONE [PredniSONE] 60 mg PO DAILY 18 Days 10/13/16 [Rx] Allergies/Adverse Reactions: 3 Allergy/AdvReac Type Severity Reaction Status Date / Time No Known Allergies Allergy Verified 09/22/15 09:12 Procedures/tests Complete & Pending: Procedures Performed prior 72 hours Category Date Time Status CT chest wo con [CT] Routine Cat Scan 10/10/16 14:30 Completed Date of admission: 10/03/16 17:44 Primary care physician: Edelmira Brennan Consults: 10/04/16 09:13 Consult to Pulmonology [CONS] Routine Consulting Provider: [facility] [place] Reason for Consult: chest tube insertion, recurrent right lower lobe pneumonias. Call Completed: Yes 10/07/16 11:23 Consult to Cardiothoracic Surgery [CONS] Routine Consulting Provider: Cardiothoracic Surgery Sofía Reason for Consult: Right pleural effusion, probably needs decortication Call Completed: No Discharging clinician: Deanna Kaur Anticipated date of discharge: 10/13/16 - Patient Status Disposition: Home, Self-Care Condition: Good Functional capacity at discharge: independent ambulation Overall status at discharge: patient is progressing back to baseline - Discharge Instructions Instructions: Chronic Obstructive Pulmonary Disease (DC), Hypotension (GEN), Pneumonia (DC) Follow Up With: Edelmira Brennan MD [Primary Care Provider] - (DR. BRENNAN SEES THE PATIENT AT THE [facility]) Additional Instructions: F/up with PCP in 1-[address] chest by PCP 3-4weeks - Diet and Activity Activity: resume usual activities as tolerated, wear oxygen at all times Diet: diabetic diet, low fat, low cholesterol Hospital course: Mr. Lubin is a 71 year old male with the above medical problems including mental retardation was admitted due to worsening shortness of breath. He was noted to have complicated right-sided parapneumonic effusion. Pulmonology was consulted and patient underwent thoracentesis and placement of thoracostomy tube, which was subsequently removed. He was recommended to be continued on oral Augmentin to complete a three-week course. Patient was also noted to have acute exacerbation of possible underlying COPD and noted to have significant wheezing, which responded to steroids and bronchodilators. He continued to require 2 L/m supplemental oxygen via nasal cannula. Home oxygen evaluation was completed and he would benefit from portable home oxygen, noted to be mobile at the [facility]. He is otherwise medically stable for discharge with outpatient follow-up with primary care physician and repeat CT scan in 4-6 weeks. - Time Spent with Patient Total time spent providing and/or coordinating discharge services: Greater than 30 minutes (45 min) - Constitutional Vitals: Temp Pulse Resp BP Pulse Ox 97.8 F 69 18 119/68 91 10/13/16 11:06 10/13/16 11:06 10/13/16 11:06 10/13/16 11:06 10/13/16 11:06 General appearance: Present: A&O X 1. Absent: answers questions appropriately - Respiratory Respiratory exam: Present: CTAB. Absent: accessory muscle use, rales, rhonchi, wheezes
== END 2016-10-13 16:48 | disposition home or self-care (01) | DRG 189 ==
LOC: 2ANU 12:32 → EMEROO 12:32 → 2ANU 15:35 → SUATTDRO 10-03 17:44 → 2NNU 10-05 09:48 → 2ANU 10-13 07:03
PROVIDERS: ADMIT Internal Medicine Endocrinology, Diabetes & Metabolism; ATTEND Internal Medicine